=== PATIENT | female | born 1955 | race Caucasian/White ===

== ENCOUNTER → 2016-11-09 | Outpatient (CLI) | payer OTHER ==
[2014-11-06 14:17] VITALS: BP 110/77; PULSE 92
[~2016-11-09] MED LIST: ALEN70TA4 PO; ALPR1TAB3 PO; AMLO-110 PO; ANAS1TAB19 PO; B-COCAP2 PO; BENA10TA10 PO; CALC1TAB27 PO; CHOLTAB3 PO; DESV50TA2 PO; GLC/500 PO; GLIP2.5T11 PO; HYDRTAB8 PO; LTR510 PO; METF1TAB53 PO; PANT40TA PO; SIMV20TA2 PO; TRAZ1TAB16 PO; probiotic
[2016-11-09 12:46] VITALS: BP 119/79; PULSE 88; TEMP 37; O2SAT 96
--- NOTE | 2016-11-09 13:47 | Radiation Oncology Follow-Up ---
Radiation Oncology Follow-Up Date of Visit Nov 09, 2016. Reason For Visit Annual follow-up Radiation Completion Date 04/06/12 Diagnosis (1) Breast cancer Status: Resolved Stage: l Permanent Comment: Left breast, invasive ductal carcinoma, [id number], stage I status post lumpectomy and adjuvant radiation therapy (59.4 Gy, 04/06/2012). Currently on Arimidex. Last Edited By: Familia Roman on Nov 06, 2014 18:19 Interim History She's been doing well over this past year. She has noticed no changes to her breast. She is noted no masses or tenderness and no change in the axilla. She' s had no swelling of her arm. She is up-to-date on mammography. She is on Arimidex. She denies side effects. She continues regular follow-up with Dr. Osorio. She had a mammogram 12/03/2015. There is no evidence of breast malignancy. Routine diagnostic mammogram is recommended in 12 months. BI-RADS Category 2. Allergies Coded Allergies: Dicyclomine (Unverified Allergy, Intermediate, rash, 01/28/12) Bupropion (Unverified Adverse Reaction, Intermediate, mood swings, 01/28/12 ) Uncoded Allergies: hyscyamine (Allergy, Intermediate, rash, 01/28/12) surgical tape (Adverse Reaction, Intermediate, rash, 01/28/12) Home Medications Scheduled Alendronate Sodium (Fosamax), 70 MG PO WK Alprazolam (Xanax), 1-2 TABS PO HS Amlodipine (Norvasc), 5 MG PO DAILY Anastrozole (Arimidex), 1 MG PO DAILY Benazepril (Lotensin), 10 MG PO DAILY Kuudpvo-Yaxqnqqgb-Xijp (Calcium Magnesium & Zinc), 1 TAB PO DAILY Desvenlafaxine Succinate (Pristiq), 100 MG PO DAILY Ergocalciferol (Vitamin D), 2,000 INTER.UNIT PO DAILY Glipizide (Glipizide Er), 0.5 TAB PO BID Hydrocodone/Acetaminophen 7.5MG/500MG (Lortab 7.5MG/500MG), 1-2 TAB PO PRN Metformin Hcl (Glucophage), 500 MG PO BID Pantoprazole (Protonix), 40 MG PO DAILY Simvastatin (Zocor), 20 MG PO QPM Trazodone Hcl (Desyrel), 50 MG PO HS Vitamin B Cmplx/Vitc/Folic Ac (Nephrocaps), 1 CAP PO DAILY Review of Systems Gastrointestinal: Symptoms: Diarrhea GI Comments: Diarrhea is normal for her - relates it to her IBS Oral: Symptoms: No Problems Respiratory: Symptoms: WNL Urinary: Symptoms: WNL Skin: Symptoms: No Problems Breast: Right Upper Arm Measurement: 42.0 Right Mid Arm Measurement: 28.0 Right Wrist Measurement: 16.8 Left Upper Arm Measurement: 39.5 Left Mid Arm Measurement: 26.5 Left Wrist Measurement: 16.8 Arm Dominence: Right Physical Exam Vital Signs Date Time Temp Pulse Resp B/P (MAP) Pulse Ox O2 Delivery O2 Flow Rate FiO2 11/09/16 12:46 37.0 88 16 119/79 96 Pain: Pain Location: None Patient Pain Scale: 0 - 10 Initial Pain Intensity: 0.0 Fatigue: None General Appearance: no apparent distress Eyes: normal inspection, EOMI ENT: normal ENT inspection, hearing grossly normal Neck: no adenopathy, thyroid normal Respiratory/Chest: lungs clear, no respiratory distress, no accessory muscle use Breast: Breast examination reveals well-healed incisions of the left breast. There are no masses or tenderness and no axillary adenopathy. There is no telangiectasia. She has no skin retractions or nipple changes. Using the [place] score cosmesis she has a in excellent outcome. The right breast showed no masses or tenderness and no axillary adenopathy. Cardiovascular: regular rate, rhythm, no gallop, no murmur Extremities: no pedal edema Neurologic/Psychiatric: no motor/sensory deficits, alert, normal mood/affect Skin: warm/dry Additional Studies Mammography as reviewed above. Assessment & Plan Plan: Continue annual mammography. Continue regular follow-up with her primary care physician and breast surgeon. We asked her to return to our office in 1 year. She may call if she has any questions or concerns in the interim. She continues on Arimidex. Total Time In Follow-Up I spent 20 minutes speaking to the patient performing examination. I spent 15 minutes reviewing information and completing this note. Copy To Noah Osorio M.D.; Gisselle Mathews M.D.
== END | disposition home or self-care (01) ==
LOC: C.ONC 12:37
PROVIDERS: ATTEND Physician Assistant Medical
DX: Z08 Encounter for follow-up examination after completed treatment for malignant neoplasm (principal); Z92.3 Personal history of irradiation; Z85.3 Personal history of malignant neoplasm of breast

== ENCOUNTER 2017-06-22 07:46 | Day surgery (SDC) | payer OTHER ==
[2017-06-16 11:38] VITALS: BMI 41.0
--- NOTE | 2017-06-16 12:14 | PAT Medication Instructions ---
Service Date Jun 16, 2017. Current Home Medication List Alendronate Sodium (Fosamax), 70 MG PO WK Alprazolam (Xanax), 1-2 TABS PO HS Amlodipine (Norvasc), 5 MG PO QAM Benazepril (Lotensin), 10 MG PO QAM Vkufyuq-Qteulmdzn-Ycwl (Calcium Magnesium & Zinc), 1 TAB PO QAM Cholecalciferol (Vitamin D3), 1 TAB PO QAM Desvenlafaxine Succinate (Pristiq), 100 MG PO QAM Glimepiride (Amaryl), 1 MG PO Glimepiride (Glimepiride), 1 TAB PO BIDM Hydrocodone/Acetaminophen 7.5MG/325MG ([place] 7.5MG/325MG), 1 TAB PO Q4 PRN for Pain Metformin Hcl (Glucophage), 500 MG PO BIDM Pantoprazole (Protonix), 40 MG PO DAILY PRN for Heartburn Simvastatin (Zocor), 20 MG PO QPM Trazodone Hcl (Desyrel), 50 MG PO HS Vitamin B Cmplx/Vitc/Folic Ac (Nephrocaps), 1 CAP PO QAM Medication Instructions For Your Scheduled Surgery -Continue as directed: Alendronate Sodium (Fosamax), 70 MG PO WK - Hold the following medications the morning of surgery: Benazepril (Lotensin), 10 MG PO QAM Biagvuz-Fmtnifyjh-Gldl (Calcium Magnesium & Zinc), 1 TAB PO QAM Cholecalciferol (Vitamin D3), 1 TAB PO QAM Glimepiride (Glimepiride), 1 TAB PO BIDM Metformin Hcl (Glucophage), 500 MG PO BIDM Vitamin B Cmplx/Vitc/Folic Ac (Nephrocaps), 1 CAP PO QAM - Take the following medications the morning of surgery with a sip of water: Amlodipine (Norvasc), 5 MG PO QAM Desvenlafaxine Succinate (Pristiq), 100 MG PO QAM Hydrocodone/Acetaminophen 7.5MG/325MG ([place] 7.5MG/325MG), 1 TAB PO Q4 PRN for Pain (if needed, can be taken up to four hours before surgery) Pantoprazole (Protonix), 40 MG PO DAILY PRN for Heartburn (if needed) - Take the following medications as scheduled the night before surgery: Alprazolam (Xanax), 1-2 TABS PO HS Glimepiride (Glimepiride), 1 TAB PO BIDM Metformin Hcl (Glucophage), 500 MG PO BIDM Hydrocodone/Acetaminophen 7.5MG/325MG ([place] 7.5MG/325MG), 1 TAB PO Q4 PRN for Pain (if needed) Pantoprazole (Protonix), 40 MG PO DAILY PRN for Heartburn (if needed) Simvastatin (Zocor), 20 MG PO QPM Trazodone Hcl (Desyrel), 50 MG PO HS If you have any questions please call us at [phone] or [phone] or [phone]
[2017-06-16 13:31] LABS: BASO % 0.2 %; BASO ABS # 0.01 K/uL (0-0.2); EOS % 0.8 %; EOS ABS # 0.05 K/uL (0-0.5); HEMATOCRIT 40.9 % (37-47); HEMOGLOBIN 13.1 g/dL (12.0-16.0); IG# 0.02 K/uL (0.00-0.02); LYMPH % 26.2 %; LYMPH ABS # 1.61 K/uL (1.2-3.4); MEAN CELL VOLUME 86.1 fL (80-100); MEAN CORPUSCULAR HEMOGLOBIN 27.6 pg (25-34); MONO % 7.8 %; MONO ABS # 0.48 K/uL (0.11-0.59); NEUT % 64.7 %; NEUT ABS # 3.97 K/uL (1.4-6.5); PLATELET COUNT 186 K/uL (130-400); RED CELL DISTRIBUTION WIDTH CV 14.2 % (11.5-14.5); RED CELL DISTRIBUTION WIDTH SD 44.6 fL (36.4-46.3); WHITE BLOOD COUNT 6.14 K/uL (4.8-10.8)
[2017-06-16 13:38] LABS: INR 0.9 (0.9-1.1); PTT PATIENT 27.4 SECONDS (21.0-31.0)
[2017-06-16 15:13] LABS: CALCIUM 9.2 mg/dl (8.5-10.1); CREATININE 1.04 mg/dl (0.60-1.20); POTASSIUM 4.1 mmol/L (3.5-5.1)
[~2017-06-22] VITALS: Ht 165.1 cm; Wt 112.7 kg
[2017-06-22] VITALS (8 sets, daily range): BP systolic 97–157; BP diastolic 62–88; PULSE 87–99; TEMP 36.5–37; O2SAT 91–99; Ht 165.1 cm; Wt 112.7 kg
[~2017-06-22 07:46] MED LIST changes: +ACETAMINOPHEN 1000 MG/100 ML IV IV ONE; -ANAS1TAB19 PO; +ATROPINE SULFATE 0.1 MG/ML 5ML SYR IV PRN; +B-CO1CAP17 PO; -B-COCAP2 PO; +CEFAZOLIN 2000MG IV PUSH 15 ML IV SCH; +CHOL20005 PO; -CHOLTAB3 PO; +EpHEDrine SULFATE INJ 50 MG/ML AMP IV PRN; +GLIM2TAB2 PO; -GLIP2.5T11 PO; +HYDR-3983 PO; +HYDROmorphone INJ 2 MG/ML SYR/VIAL IV PRN; -HYDRTAB8 PO; +LACTATED RINGER'S 1000ML 1,000 ML IV SCH; -LTR510 PO; -METF1TAB53 PO; +ONDANSETRON INJ 2 MG/ML 2 ML VIAL IV PRN; +PHENYLEPHRINE 100MCG/ML 5ML SYR IV PRN; +TRAZ-119 PO; -TRAZ1TAB16 PO; -probiotic
[2017-06-22] MEDS ORDERED: LIDOCAINE/EPINEPHRINE 1% 20 ML VIAL ONE (09:54)
[2017-06-22] MEDS ORDERED: BUPIVACAINE 0.25% 30 ML VIAL ONE (09:55)
[2017-06-22] MEDS ORDERED: HYDROmorphone INJ 2 MG/ML SYR/VIAL ONE (10:02)
[2017-06-22] MEDS ORDERED: FENTANYL CITRATE INJ 50 MCG/1 ML 2 ML VIAL ONE (10:02)
[2017-06-22] MEDS ORDERED: MIDAZOLAM HCL 1 MG/ML 2ML VIAL ONE (10:02)
--- NOTE | 2017-06-22 10:05 | History & Physical Bridge Note ---
H&P Re-Evaluation Bridge Note: I have examined the patient, reviewed the History & Physical and in the interval since the performance of the History & Physical I have noted the following changes of clinical significance: Consent amended to includ removal of radiation tattoo. Otherwise No changes noted
[2017-06-22] MEDS ORDERED: LARYING-O-JET KIT (LTA) ONE (10:06)
[2017-06-22] MEDS ORDERED: ONDANSETRON INJ 2 MG/ML 2 ML VIAL ONE ×2 (10:53→12:06)
[2017-06-22] MEDS ORDERED: EpHEDrine SULFATE 50MG/5ML SYR ONE (10:53)
[2017-06-22] MEDS ORDERED: PHENYLEPHRINE 100MCG/ML 5ML SYR ONE (10:53)
[2017-06-22] MEDS ORDERED: PROPOFOL IV EMULSION 10 MG/ML 20 ML VIAL IV ONE ×2 (10:53→12:03)
[2017-06-22] MEDS ORDERED: DEXAMETHASONE SOD INJ 4 MG/ML VIAL ONE (10:53)
[2017-06-22] MEDS ORDERED: LIDOCAINE HCL 2% 2 ML VIAL (20MG/ML) ONE (10:53)
--- NOTE | 2017-06-22 12:18 | [facility] Post Operative Brief Note ---
Immediate Operative Summary Operative Date Jun 22, 2017. Pre-Operative Diagnosis -Breast Asymmetry - History of Malignant Neoplasm of Left Breast Post-Operative Diagnosis -Breast Asymmetry - History of Malignant Neoplasm of Left Breast Procedure(s) Performed Unilateral Right Breast Reduction Surgeon Dr. Anastasiia Brown Lumber Handler Surgeon(s) Melanie Baltazar PA-C Estimated Blood Loss 10mL Findings Consistent with Post-Op Diagnosis Specimens Fresh Specimen: A.)Right Breast Tissue (348grams) B.) Incidental Right Breast Lump Drains MELLY x1 Anesthesia Type General Complication(s) none Disposition Disposition: Recovery Room / PACU
[2017-06-22] MEDS ORDERED: PANTOprazole SOD 40 MG TAB PO PRN (12:30)
[2017-06-22] MEDS ORDERED: ACETAMINOPHEN 325 MG TAB PO PRN (12:30)
[2017-06-22] MEDS ORDERED: ONDANSETRON INJ 2 MG/ML 2 ML VIAL IV PRN (12:30)
[2017-06-22] MEDS ORDERED: MoRPHine SULFATE 2 MG/ML CARP IV PRN (12:30)
[2017-06-22] MEDS ORDERED: MoRPHine SULFATE 4 MG/ML 1 ML CARP\\VIAL IV PRN ×2 (12:30)
[2017-06-22] MEDS ORDERED: PROMETHAZINE HCL INJ 12.5 MG in SODIUM CHLORIDE 0.9% 50ML 50 ML IV PRN (12:30)
--- NOTE | 2017-06-22 13:33 | Anesthesiology Progress Note ---
Anesthesia Post Op Note Date & Time Jun 22, 2017 at 13:32 Vital Signs Pain Intensity: 0 Vital Signs Past 12 Hours Date Time Temp Pulse Resp B/P (MAP) Pulse Ox O2 Delivery O2 Flow Rate FiO2 06/22/17 13:15 103 16 134/67 95 Nasal Cannula 2 06/22/17 13:05 95 15 153/59 99 Oxymask 10 06/22/17 12:55 99 15 117/68 99 Oxymask 10 06/22/17 12:49 36.0 106 12 152/80 100 Oxymask 10 06/22/17 08:27 36.7 90 18 157/88 (111) 95 Room Air Notes Mental Status: alert / awake / arousable, participated in evaluation Pt Amnestic to Procedure: Yes Nausea / Vomiting: adequately controlled Pain: adequately controlled Airway Patency, RR, SpO2: stable & adequate BP & HR: stable & adequate Hydration State: stable & adequate Anesthetic Complications: no major complications apparent
[2017-06-22] MEDS ORDERED: D5W AND 1/2NSS + 20MEQ KCL 1,000 ML IV SCH (14:30)
[2017-06-22] MEDS: CEFAZOLIN IV 3,000 MG in SYRINGE 0 ML IV SCH ×2 (15:47→23:46)
[2017-06-22] MEDS: HYDROCODONE/ACETAMINOPHEN 7.5/325MG TAB PO PRN ×2 (15:51→23:48)
[2017-06-22] MEDS ORDERED: IV FLUIDS COMPLETED PRN (16:00)
--- NOTE | 2017-06-22 16:11 | OPERATIVE REPORT ---
DATE OF OPERATION: 06/22/2017 PREOPERATIVE DIAGNOSIS: Acquired breast asymmetry as a result of lumpectomy and radiation, desire for right breast reduction. POSTOPERATIVE DIAGNOSIS: Same. PROCEDURE: Right breast reduction for symmetry and excision of radiation tattoo, central chest. SURGEON: Dr. Anastasiia Brown. HEBREW TEACHER: Melanie Baltazar PA-C. ANESTHESIA: General. COMPLICATIONS: None. INDICATION FOR THE PROCEDURE: The patient is a 61-year-old female who presented to my office at the request of her breast surgeon after having had a lumpectomy and radiation on the left side for breast cancer about 5 years ago. She has been bothered by the persistent asymmetry and desire to discuss right breast reduction. After discussion, she elected to proceed. BRIEF DESCRIPTION OF THE PROCEDURE: The risks, benefits and alternatives of the procedure were explained to the patient who agreed and signed consent. She was identified and marked in the preoperative holding area. She was brought to the operating room where she was positioned supine and placed under anesthesia without incident. Surgical site was prepped and draped sterilely. A time-out procedure was performed. I began with excision of her small radiation tattoo, which measured about 4 mm. 1% lidocaine with epinephrine was used to anesthetize the site. A small elliptical incision was made. The tattoo was excised using a 15 blade scalpel. Hemostasis was achieved with electrocautery. The wound was reapproximated using 3-0 PDS interrupted dermal sutures and a 4-0 Prolene interrupted skin sutures. Total wound closure length 2 cm. Attention was then turned to a right breast reduction. I discussed with the patient preoperatively that I would attempt to match the nipple and areolar position as much as possible. Therefore, I marked the areola to be about 50 mm in diameter. 1% lidocaine with epinephrine was used to anesthetize the planned incisions. An 8 cm pedicle was marked. A 50 mm circular incision was made around the nipple-areolar complex. Previously marked 8 cm pedicle was incised using a 15 blade scalpel and epithelized. I began with the medial dissection of the pedicle using electrocautery. Cautery was used to incise through dermis and breast parenchyma down to the chest wall, taking care not to undermine the pedicle during dissection. I did bevel away from the pedicle medially in order to provide some additional fullness. A similar procedure was undertaken on the lateral aspect of the pedicle again taking care not to undermine. Lastly pedicle was dissected out superiorly using electrocautery and this was carried down to the chest wall as well. I then began with excision of the medial breast tissue followed by lateral aspect of the breast tissue and surrounding keyhole incision. A 15 blade scalpel was used to make the inframammary fold incision and electrocautery was used to deepen the incision through dermis and breast parenchyma. Dissection was then carried superiorly to the level of the superior incision. Superior incision was then incised using a 15 blade scalpel and again dissected using electrocautery. This was undertaken laterally and then around the keyhole portion of the incision. Care was taken to Levophed on the lateral pectoralis fascia in order to protect the T4 intercostal nerve. Hemostasis was achieved with electrocautery. Specimen was passed off for weighing and weighed 348 grams. I did not perform any additional resection as I felt there was reasonable symmetry with regards to volume and nipple position. Wound was irrigated with saline. Hemostasis was achieved with electrocautery. 0.25% Marcaine plain was used to anesthetize the incisions as well as pectoralis fascia. A 15 [place] Alex drain was brought out through a separate stab incision. The nipple-areolar complex was brought into the keyhole using 2-0 Vicryl deep dermal suture. Wound was closed first in a lateral to mid breast direction and then medial to mid breast direction using 2-0 Vicryl deep dermals. Vertical limb was approximated using 2-0 Vicryl deep dermal sutures. The nipple-areolar complex was inset using 2-0 Vicryl deep dermal sutures. Next, the superficial dermal layer was closed using 2-0 PDO running Quill suture along the inframammary fold and 3-0 PDS interrupted dermal sutures along the vertical limb and nipple-areolar complex. Lastly, a 3-0 Monocryl running subcuticular suture was placed. Dermabond Prineo was applied along the inframammary fold and vertical limb incisions and Dermabond was placed around the nipple-areolar complex. Dry dressings and a surgical bra were placed. The patient was awakened and transferred to recovery in satisfactory condition. Melanie Baltazar PA-C was present and scrubbed throughout the entire procedure and was instrumental in providing retraction during dissection of the pedicle and assisting in wound closure. I attest to the content of the Intraoperative Record and any orders documented therein. Any exception s are noted below.
[2017-06-22] MEDS: GLIMEPIRIDE 2 MG TAB PO SCH (17:45)
[2017-06-22] MEDS ORDERED: ALPRAZOLAM 0.5 MG TAB PO SCH (21:00)
[2017-06-22] MEDS ORDERED: SIMVASTATIN 20 MG TAB PO SCH (21:00)
[2017-06-22] MEDS ORDERED: TRAZODONE HCL 50 MG TAB PO SCH (21:00)
[2017-06-23 03:00] VITALS: BP 128/72; PULSE 90; TEMP 37; O2SAT 94
[2017-06-23] MEDS: HYDROCODONE/ACETAMINOPHEN 7.5/325MG TAB PO PRN (07:29)
--- NOTE | 2017-06-23 08:01 | Surgery Progress Note ---
Surgery Progress Note Date of Service Jun 23, 2017. Subjective Post OP Day: 1 + feeling well, + ambulating, No complaints Objective Vital Signs: Date Time Temp Pulse Resp B/P (MAP) Pulse Ox O2 Delivery O2 Flow Rate FiO2 06/23/17 03:00 37.0 90 17 128/72 (90) 94 Room Air 06/22/17 23:30 Room Air 06/22/17 23:07 37.0 93 17 97/65 (76) 93 Room Air 06/22/17 16:51 36.9 87 18 117/79 (92) 93 06/22/17 15:56 36.6 98 18 124/75 (91) 96 Room Air 06/22/17 15:45 96 Room Air 06/22/17 15:19 36.6 91 18 119/74 (89) 91 Room Air 06/22/17 14:30 36.5 98 17 102/62 (75) 91 Room Air 06/22/17 14:00 95 Nasal Cannula 2.0 06/22/17 14:00 36.7 99 16 123/73 (90) 99 Nasal Cannula 2.0 06/22/17 13:45 101 15 118/70 95 Nasal Cannula 2 06/22/17 13:35 36.7 99 16 120/62 95 Nasal Cannula 2 06/22/17 13:25 99 18 125/64 93 Nasal Cannula 2 06/22/17 13:15 103 16 134/67 95 Nasal Cannula 2 06/22/17 13:05 95 15 153/59 99 Oxymask 10 06/22/17 12:55 99 15 117/68 99 Oxymask 10 06/22/17 12:49 36.0 106 12 152/80 100 Oxymask 10 06/22/17 08:27 36.7 90 18 157/88 (111) 95 Room Air Physical Exam: Alex drainage (serous and bloody, 20cc) General Appearance: WD/WN, no apparent distress Incision(s): clean, dry, intact, no erythema, findings (nipples pink, with sensation bilat) Laboratory Results: Results Past 24 Hours Test 06/22/17 08:22 06/22/17 13:06 06/22/17 16:50 Range/Units Bedside Glucose 130 171 151 70-90 mg/dl Assessment & Plan s/p right breast reduction 1. doing well. drain removed. d/c home today, f/u in office tomorrow
--- NOTE | 2017-06-23 08:03 | Discharge Instructions ---
Discharge Instructions Date of Service Jun 23, 2017. Admission Reason for Admission: Breast Asymmetry, Personal Hx Of Malignant Neoplas Discharge Discharge Diagnosis / Problem: breast asymmetry, history of breast cancer Discharge Goals Goal(s): Decrease discomfort, Improve function Activity Recommendations Activity Limitations: per Instructions/Follow-up section ACTIVITY RECOMMENDATIONS: __Normal activities _x_No bending, lifting or straining __No driving __Driving allowed when you are off pain medications _x_Walking permitted __You should have help at home for ___ days DRESSINGS: __No dressings required _x_Keep dressings dry/in place until first office visit __Remove dressings ___ and leave dressings off __Apply ice ___ days __Remove dressings and reapply garment __Apply antibiotic ointment (Bacitracin, Neosporin, etc) to wounds 3-4 times/ day for 10 days BATHING: _x_Keep dressings dry _x_Sponge bathing permitted away from incisions __Showering permitted _x_No swimming, hot tubs or soaking in a tub MEDICATIONS: Resume previous medications unless instructed otherwise by your surgeon. _x_Do not use aspirin, Motrin, Advil or Ibuprofen as these may promote bleeding. Please use Tylenol. __Prescription(s) provided: none OTHER INSTRUCTIONS: __Record drain output 2-3 times per day SPECIAL CARE INSTRUCTIONS: * It is normal to have a mild fever after surgery. If your temperature is higher than 101.5 degrees F, please call the office at [phone]. * Constipation is a typical side effect of pain medication. An over-the- counter stool softener will help relieve this. * Leaking around surgical drains may occur and should not cause concern. Sometimes these drains become clogged. If this happens, remove the bulb and milk the clot out of the tube, then replace the bulb. * Drainage from wounds after liposuction is normal and should be expected. Garments will become soiled. You should protect furniture and bedding. This drainage should mostly subside within 2-3 days. Leave garments in place unless instructed to remove them. * If you have unusual drainage from a wound or are concerned you have an infection or have any questions or concerns, please call the office at [phone]. FOLLOW UP VISIT: If not already scheduled, please call the office, , when you return home after surgery to schedule an appointment to be seen in __1_ days. . Current Hospital Diet Patient's current hospital diet: Diabetes Type 2 Diet Discharge Diet Recommended Diet: Regular Diet Procedures Procedures Performed: Unilateral Right Breast Reduction Pending Studies Studies pending at discharge: yes List of pending studies: pathology Medical Emergencies . Who to Call and When: Medical Emergencies: If at any time you feel your situation is an emergency, please call 911 immediately. . Non-Emergent Contact Non-Emergency issues call your: Primary Care Provider, Surgeon . "Provider Documentation" section prepared by Melanie Baltazar. . [place] Drug Monitoring Program Search Results: patient reviewed within database
[2017-06-23 08:05] VITALS: BP 119/74; PULSE 99; TEMP 36.8; O2SAT 94
[2017-06-23] MEDS: GLIMEPIRIDE 2 MG TAB PO SCH (08:41)
[2017-06-23 08:45] VITALS: BP 119/74; PULSE 99; TEMP 36.8; O2SAT 94
[2017-06-23] MEDS ORDERED: NEPHROCAPS PO SCH (09:00)
[2017-06-23] MEDS ORDERED: AMLODIPINE BESYLATE 5 MG TAB PO SCH (09:00)
[2017-06-23] MEDS ORDERED: ENOXAPARIN 40 MG/0.4 ML SYR SQ SCH (09:00)
[2017-06-23] MEDS ORDERED: ENALAPRIL MALEATE 10 MG TAB PO SCH (09:00)
[2017-06-23] MEDS ORDERED: MULTIVITAMIN TAB PO SCH (09:00)
--- NOTE | 2017-06-24 08:11 | Discharge Summary ---
Discharge Summary Date of Service Jun 24, 2017. Admission Date/Reason Jun 22, 2017 at 08:19 Breast Asymmetry, Personal Hx Of Malignant Neoplas. Discharge Date/Disposition Jun 23, 2017 Home Diagnosis Principal Diagnosis: breast asymmetry, history of breast cancer Procedure(s) Performed right breast reduction Medication Reconciliation Continued Medications: Alendronate Sodium (Fosamax) 70 Mg Tab 70 MG PO WK, TAB takes on saturdays Alprazolam (Xanax) 1 Mg Tab 1-2 TABS PO HS, TAB Amlodipine (Norvasc) 5 Mg Tab 5 MG PO QAM, TAB Benazepril (Lotensin) 10 Mg Tab 10 MG PO QAM, TAB Ddohoey-Avmmqxcqf-Ukog (Calcium Magnesium & Zinc) 1 Tab Tab 1 TAB PO QAM Cholecalciferol (Vitamin D3) 2,000 Unit Tab 1 TAB PO QAM Desvenlafaxine Succinate (Pristiq) 50 Mg Tab 100 MG PO QAM, TAB Glimepiride (Glimepiride) 2 Mg Tab 1 TAB PO BIDM Hydrocodone/Acetaminophen 7.5MG/325MG ([place] 7.5MG/325MG) Tab 1 TAB PO Q4 PRN for Pain, TAB PRN PAIN Metformin Hcl (Glucophage) 500 Mg Tab 500 MG PO BIDM, TAB Pantoprazole (Protonix) 40 Mg Tab 40 MG PO DAILY PRN for Heartburn, #30 TAB Simvastatin (Zocor) 20 Mg Tab 20 MG PO QPM, TAB Trazodone Hcl (Desyrel) 50 Mg Tab 50 MG PO HS, TAB Vitamin B Cmplx/Vitc/Folic Ac (Nephrocaps) Cap 1 CAP PO QAM for 30 Days, #30 CAP 11 Refills Admission Physical Exam As per Admitting History & Physical. Hospital Course Patient presented to the hospital with a history of breast asymmetry as a result of surgery to her left breast for breast cancer. She was taken to the OR and underwent a right breast reduction. A myra drain was placed intraoperatively. There were no complications. She was taken to recovery and transferred to med/surg for observation. On POD#1 her drain had 20cc of serosanguineous output and was removed. Her nipple was pink, perfusing and had sensation. VSS. The patient was tolerating a regular diet and ambulating. She was discharged home with instructions to follow-up in the office the following day. Discharge Instructions Please refer to the electronic Patient Visit Report (Discharge Instructions) for additional information.
[2017-06-25] MEDS ORDERED: ALENDRONATE SODIUM 70 MG TAB PO SCH (08:00)
== END 2017-06-23 09:30 | disposition home or self-care (01) ==
LOC: C.ACU 07:46 → C.MSW 08:19 → ENRESERV 13:21
PROVIDERS: ADMIT Plastic Surgery; ATTEND Plastic Surgery
DX: N64.89 Other specified disorders of breast (principal); M19.90 Unspecified osteoarthritis, unspecified site; F41.8 Other specified anxiety disorders; Z85.3 Personal history of malignant neoplasm of breast; I10 Essential (primary) hypertension; K58.9 Irritable bowel syndrome, unspecified; Z90.710 Acquired absence of both cervix and uterus; Z96.659 Presence of unspecified artificial knee joint; Z87.81 Personal history of (healed) traumatic fracture; Z82.49 Family history of ischemic heart disease and other diseases of the circulatory system; Z88.8 Allergy status to other drugs, medicaments and biological substances; Z91.048 Other nonmedicinal substance allergy status; E78.5 Hyperlipidemia, unspecified; K21.9 Gastro-esophageal reflux disease without esophagitis; E11.9 Type 2 diabetes mellitus without complications; E66.01 Morbid (severe) obesity due to excess calories

== ENCOUNTER → 2017-11-08 | Outpatient (CLI) | payer OTHER ==
[~2017-11-08] MED LIST changes: -ACETAMINOPHEN 1000 MG/100 ML IV IV ONE; -AMLO-110 PO; +AMLO5TAB3 PO; -ATROPINE SULFATE 0.1 MG/ML 5ML SYR IV PRN; -B-CO1CAP17 PO; +B-COCAP2 PO; -CEFAZOLIN 2000MG IV PUSH 15 ML IV SCH; -EpHEDrine SULFATE INJ 50 MG/ML AMP IV PRN; -HYDROmorphone INJ 2 MG/ML SYR/VIAL IV PRN; -LACTATED RINGER'S 1000ML 1,000 ML IV SCH; -ONDANSETRON INJ 2 MG/ML 2 ML VIAL IV PRN; -PHENYLEPHRINE 100MCG/ML 5ML SYR IV PRN; -TRAZ-119 PO; +TRAZ1TAB96 PO
[2017-11-08 13:16] VITALS: BP 123/85; PULSE 79; TEMP 37; O2SAT 95
--- NOTE | 2017-11-08 14:40 | Radiation Oncology Follow-Up ---
Radiation Oncology Follow-Up Date of Visit Nov 08, 2017. Reason For Visit Annual follow up Radiation Completion Date 04/06/12 Diagnosis (1) Breast cancer Status: Resolved Stage: l Permanent Comment: Left breast, invasive ductal carcinoma, [id number], stage I status post lumpectomy and adjuvant radiation therapy (59.4 Gy, 04/06/2012). Completed 5 years of Armidex. Last Edited By: Albina Booker on Nov 08, 2017 14:37 Interim History She has been doing well over the past year. She denies any changes to the left breast. She is noted no masses or tenderness and no change of the axilla. She has had no swelling of her arm. She is up-to-date on mammography. She saw her breast surgeon and was discharged. He did state that because of the asymmetry of the breasts she would like an opinion of a plastic surgeon. She was seen by Dr. Anastasiia Brown and underwent breast reduction on the right side. She is very pleased with the outcome. She has now completed the antiestrogen therapy that was prescribed by the breast surgeon. Allergies Coded Allergies: Dicyclomine (Unverified Allergy, Intermediate, rash, 06/22/17) Bupropion (Unverified Adverse Reaction, Intermediate, mood swings, 06/22/17 ) Uncoded Allergies: hyscyamine (Allergy, Intermediate, rash, 01/28/12) surgical tape (Adverse Reaction, Intermediate, rash, 01/28/12) Home Medications Scheduled Alendronate Sodium (Fosamax), 70 MG PO WK Alprazolam (Xanax), 1-2 TABS PO HS Amlodipine (Norvasc), 5 MG PO QAM Benazepril (Lotensin), 10 MG PO QAM Faizayh-Kiibpuzsi-Tqgq (Calcium Magnesium & Zinc), 1 TAB PO QAM Cholecalciferol (Vitamin D3), 1 TAB PO QAM Desvenlafaxine Succinate (Pristiq), 100 MG PO QAM Glimepiride (Glimepiride), 1 TAB PO BIDM Metformin Hcl (Glucophage), 500 MG PO BIDM Simvastatin (Zocor), 20 MG PO QPM Trazodone Hcl (Desyrel), 50 MG PO HS Vitamin B Cmplx/Vitc/Folic Ac (Nephrocaps), 1 CAP PO QAM Scheduled PRN Hydrocodone/Acetaminophen 7.5MG/325MG ([place] 7.5MG/325MG), 1 TAB PO Q4 PRN for Pain Pantoprazole (Protonix), 40 MG PO DAILY PRN for Heartburn Review of Systems Gastrointestinal: Symptoms: WNL GI Comments: Diarrhea is normal for her - relates it to her IBS Oral: Symptoms: No Problems Respiratory: Symptoms: WNL Urinary: Symptoms: WNL Skin: Symptoms: No Problems Breast: Right Upper Arm Measurement: 44.5 Right Mid Arm Measurement: 28.0 Right Wrist Measurement: 17.3 Left Upper Arm Measurement: 44.0 Left Mid Arm Measurement: 27.5 Left Wrist Measurement: 17.3 Arm Dominence: Right Physical Exam Vital Signs Date Time Temp Pulse Resp B/P (MAP) Pulse Ox O2 Delivery O2 Flow Rate FiO2 11/08/17 13:16 37.0 79 20 123/85 95 ECOG Performance Status: 0 Fatigue: None General Appearance: no apparent distress Eyes: normal inspection, EOMI ENT: normal ENT inspection, hearing grossly normal Neck: supple, no adenopathy, thyroid normal Respiratory/Chest: lungs clear, no respiratory distress, no accessory muscle use Breast: Breast examination reveals bilateral well-healed incisions. There are no masses or tenderness and no axillary adenopathy. She has no skin retractions or nipple changes. Using the [place] score of cosmesis she has a good outcome. Cardiovascular: regular rate, rhythm, no gallop, no murmur Abdomen: non tender, soft, no organomegaly Extremities: no pedal edema Neurologic/Psychiatric: no motor/sensory deficits, alert, normal mood/affect Skin: warm/dry Pain Management Patient Reports Pain: No Pain Location: None Patient Preferred Pain Scale: 0 - 10 Initial Pain Intensity: 0.0 Pain Management Plan She denies pain therefore requires no pain management. Laboratory Laboratory Results: not applicable Pathology Pathology Results: not applicable Imaging Imaging Studies: were reviewed, and pertinent findings noted below Imaging Comments She had a mammogram December 14, 2016. This showed no evidence of malignancy. Recommendation was for 12-month follow-up. BI-RADS Category 2. Assessment & Plan Plan: Continue with scheduled mammography. She will have a mammogram next month. She will continue follow-up with her primary care provider and printing table hand. A follow-up appointment with our office was not given. She is going to continue her breast examinations through the primary care provider and her printing table hand. She may call if she has any questions or concerns we would be happy to see her. Total Time In Follow-Up I spent 20 minutes speaking to the patient in performing examination. I spent 15 minutes reviewing information and completing this note. AK Copy To Gisselle Mathews M.D. Problem Qualifiers (1) Breast cancer: Breast location: upper inner quadrant of breast Estrogen receptor status: positive Patient sex: female Laterality: left Qualified Codes: C50.212 - Malignant neoplasm of upper-inner quadrant of left female breast; Z17.0 - Estrogen receptor positive status [ER+]
== END | disposition home or self-care (01) ==
LOC: C.ONC 12:55
PROVIDERS: ATTEND Physician Assistant Medical
DX: Z08 Encounter for follow-up examination after completed treatment for malignant neoplasm (principal); Z92.3 Personal history of irradiation; Z85.3 Personal history of malignant neoplasm of breast

== ENCOUNTER 2022-08-10 10:21 | Inpatient (IN) ==
--- NOTE | 2022-08-10 11:09 | Emergency Department Note ---
History of Present Illness General Chief complaint: Fall Time Seen by Provider: 08/10/22 11:01 History of Present Illness Provider complaint: Fall Onset (ago): day(s) 1 Location: lower extremity and right Maximum Pain Intensity: 8 67-year-old female presents emergency department for fall. Patient states that she had a total right hip replacement done by Dr. Krishnamurthy in [place] yesterday. She states she got home around 2 PM and then at 11 PM felt a pop in her hip replacement. Patient states she had pain but was able to get back to the bed. She states she woke up this morning at 8 AM and felt a second pop in the affected hip and then fell to the floor. Patient is reporting pain in her right hip. Home Medications Medication Instructions Recorded Confirmed Type aspirin 81 mg tablet 81 mg PO QAM 02/01/20 08/10/22 History ndadpvf-kjekihkic-znyf 333 mg-133 2 tab PO DAILY 02/01/20 08/10/22 History mg-5 mg tablet fluoxetine 40 mg capsule (Prozac) 60 mg PO QAM 02/01/20 08/10/22 History hydrocodone 7.5 mg-acetaminophen 1 tab PO BID PRN Pain 02/01/20 08/10/22 History 325 mg tablet ([place]) lactobacillus combination no.4 3 3,000 mmu cells PO DAILY 02/01/20 08/10/22 History billion cell capsule (Probiotic) meclizine 25 mg capsule 25 mg PO TID PRN Dizziness 02/01/20 08/10/22 History ondansetron HCl 4 mg tablet 4 mg PO Q6H PRN Nausea 02/01/20 08/10/22 History (Zofran) pantoprazole 40 mg tablet,delayed 40 mg PO DAILY PRN Acid Reflux 02/01/20 08/10/22 History release (Protonix) pioglitazone 30 mg tablet (Actos) 30 mg PO QAM 02/01/20 08/10/22 History simvastatin 20 mg tablet (Zocor) 20 mg PO HS 02/01/20 08/10/22 History amlodipine 5 mg tablet 5 mg PO DAILY 08/10/22 08/10/22 History buspirone 7.5 mg tablet 7.5 mg PO TID 08/10/22 08/10/22 History dicyclomine 10 mg capsule 10 mg PO QID PRN Abdominal Pain 08/10/22 08/10/22 History lisinopril 20 mg tablet 20 mg PO DAILY 08/10/22 08/10/22 History Allergies Allergy/AdvReac Type Severity Reaction Status Date / Time dicyclomine Allergy Unknown rash Verified 02/18/20 06:27 bupropion AdvReac Unknown mood swings Verified 02/18/20 06:27 hyscyamine Allergy Unknown rash Uncoded 02/18/20 06:27 surgical tape AdvReac Unknown BROWN Uncoded 02/18/20 06:27 SURGICAL TAPE - rash Past Med/Surg History Medical History Acid reflux Age related osteoporosis OSTEOPEROSIS Anxiety and depression Diabetes History of breast cancer LEFT, HX RADIATION History of fall JAN 03 2020TRIPPED OVER SOMETHING AT [employer] -INJURED SELF - NOT DX WITH 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 HTN (hypertension) Hyperlipidemia IBS (irritable bowel syndrome) Surgical History History of History of colonoscopy History of hysterectomy History of partial mastectomy of left breast History of reduction surgery of right breast History of surgery LEFT LEG X2 History of total left knee replacement S/P hip replacement Family History Mother Family history of diabetes mellitus Other Family history of diabetes mellitus in father Patient's father is Social History Smoking Status: Never smoker Do You Dip or Chew Tobacco: No; Hx Alcohol Use: No Preferred Language: Yoruba Communication Ability: Effective 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 Beliefs That Will Affect Care: None Current Living Situation: Family Current Living Situation Comment: SON AND DEANNA LIVE WITH PT Feels Safe at Home: Yes Physical Exam Vital Signs Vital Signs - 24 hr 08/10/22 10:11 08/10/22 11:23 08/10/22 14:23 Temperature 36.5 C Temperature Source Temporal Artery Scan Pulse Rate 78 Pulse Rate [Apical] 79 Respiratory Rate 18 18 Respiratory Effort / Characteristics Non-Labored Spontaneous Respiratory Depth Normal Respiratory Pattern Regular Blood Pressure 138/78 Blood Pressure [Left Arm] 98/54 L Blood Pressure Mean 98 Blood Pressure Mean [Left Arm] 68 Blood Pressure Position Sitting Pulse Oximetry 97 97 94 Oxygen Delivery Method Room Air Room Air Sepsis Recent Fever Within 48 Hours No Sepsis New/Unexplained Change in Mental Status N/A Sepsis Action Taken by Nursing No Action Required Physical Exam HENT: Exam performed. -Head: Normocephalic and atraumatic. -Right Ear: External ear normal. No mastoid erythema -Left Ear: External ear normal. No mastoid erythema EYES: Conjunctivae and EOM are normal. Right eye exhibits no discharge. Left eye exhibits no discharge. No scleral icterus. NECK: Normal range of motion. Neck supple. No JVD present. No spinous process tenderness present. No tracheal deviation and normal range of motion present. CV: Normal rate, regular rhythm, normal heart sounds and intact distal pulses. There is no peripheral edema. Palpable radial pulses bue. PULM/CHEST: Effort normal and breath sounds normal. No respiratory distress. No stridor. She has no wheezes. She has no rales. ABD: The abdomen is soft. There is no tenderness. There is no rebound, no guarding. MUSC/SKEL: Right lower extremity: Surgical incision is clean and dry. Right lower extremity is shortened and externally rotated. Pain on palpation of the right hip. Bruising over the right internal thigh. Left lower extremity: Within normal limits NEURO:GCS eye subscore is 4. GCS verbal subscore is 5. GCS motor subscore is 6. PSYCH: She has a normal mood and affect. Behavior is normal. Judgment and thought content normal. Course Course 1101: The patient was evaluated in room A11. A complete history and physical exam was performed Cardiac monitoring: An order was placed for continuous cardiac monitoring. The monitor shows a rate of 80 with sinus rhythm interpreted by me 1215: X-rays reviewed by me do show periprosthetic fracture. Confirmed by radiology. Discussed with the patient's operating surgeon Dr. Krishnamurthy who states he is not in [place] until Tuesday and is asking if the patient could be transferred to [facility] as he is operating there tomorrow. 1230: Dr. Krishnamurthy called back and states he should be able to rearrange his schedule to accommodate the patient and states that the patient can be admitted to this facility. Patient will be admitted to the medicine team. Administered Medications Morphine Sulfate (Morphine Sulfate 4 Mg/Ml 1 Ml Carp\Vial) 4 mg IV Q1H PRN PRN Reason: Severe Pain (Rating 7,8,9,10) Stop: 08/24/22 12:03 Last Admin: 08/10/22 14:22 Dose: 4 mg Documented By: BRYON Medical Decision Making Laboratory Data Attestation: I reviewed the patient's lab results. 08/10/22 12:10 08/10/22 12:10 Lab Results 08/10/22 08/10/22 08/10/22 Range/Units 12:10 12:10 12:10 WBC 8.90 (4.8-10.8) K/ul RBC 3.38 L (4.20-5.40) M/uL Hgb 10.0 L (12.0-16.0) g/dl Hct 31.2 L (37.0-47.0) % MCV 92.3 (80.0-100.0) fL MCH 29.6 (25.0-34.0) pg MCHC 32.1 (32.0-36.0) g/dL RDW Std Deviation 46.7 H (36.4-46.3) fL RDW Coeff of Sunny 13.8 (11.5-14.5) % Plt Count 179 (130-400) K/uL MPV 11.5 (9.4-12.4) fL Immature Gran % (Auto) 0.3 % Neut % (Auto) 85.1 % Lymph % (Auto) 6.2 % [place] % (Auto) 8.3 % Eos % (Auto) 0.0 % Baso % (Auto) 0.1 % Neut # (Auto) 7.57 H (1.40-6.50) K/uL Lymph # (Auto) 0.55 L (1.2-3.4) K/uL [place] # (Auto) 0.74 H (0.11-0.59) K/uL Eos # (Auto) 0.00 (0-0.50) K/uL Baso # (Auto) 0.01 (0-0.2) K/uL Immature Gran # (Auto) 0.03 (0.01-0.20) K/uL PT 11.3 (9.0-12.0) Seconds INR 1.0 (0.9-1.1) APTT 31.3 H (21.0-31.0) Seconds PTT Ratio 1.1 Sodium 138 (136-145) mmol/L Potassium 3.8 (3.5-5.1) mmol/L Chloride 108 H (98-107) mmol/L Carbon Dioxide 26 (21-32) mmol/L Anion Gap 4 (3-11) BUN 16 (6-23) mg/dl Creatinine 1.01 (0.6-1.2) mg/dl Est Cr Clr Drug Dosing 68.0 ml/min Est GFR ( Amer) 66.7 ml/min Est GFR (Non-Af Amer) 57.6 ml/min BUN/Creatinine Ratio 15.8 (10-20) Glucose 122 H (70-99(Fasting)) mg/dl Calcium 8.6 (8.6-10.3) mg/dl Urine Color Urine Appearance (Clear) Urine pH (4.5-7.5) Ur Specific [place] (1.000-1.030) Urine Protein (Negative) Urine Glucose (UA) (Negative) Urine Ketones (Negative) Urine Blood (Negative) Urine Nitrite (Negative) Urine Bilirubin (Negative) Urine Urobilinogen (Negative) Ur Leukocyte Esterase (Negative) SARS-CoV-2, RNA, NAAT (NEGATIVE) 08/10/22 08/10/22 Range/Units 13:33 13:33 WBC (4.8-10.8) K/ul RBC (4.20-5.40) M/uL Hgb (12.0-16.0) g/dl Hct (37.0-47.0) % MCV (80.0-100.0) fL MCH (25.0-34.0) pg MCHC (32.0-36.0) g/dL RDW Std Deviation (36.4-46.3) fL RDW Coeff of Sunny (11.5-14.5) % Plt Count (130-400) K/uL MPV (9.4-12.4) fL Immature Gran % (Auto) % Neut % (Auto) % Lymph % (Auto) % [place] % (Auto) % Eos % (Auto) % Baso % (Auto) % Neut # (Auto) (1.40-6.50) K/uL Lymph # (Auto) (1.2-3.4) K/uL [place] # (Auto) (0.11-0.59) K/uL Eos # (Auto) (0-0.50) K/uL Baso # (Auto) (0-0.2) K/uL Immature Gran # (Auto) (0.01-0.20) K/uL PT (9.0-12.0) Seconds INR (0.9-1.1) APTT (21.0-31.0) Seconds PTT Ratio Sodium (136-145) mmol/L Potassium (3.5-5.1) mmol/L Chloride (98-107) mmol/L Carbon Dioxide (21-32) mmol/L Anion Gap (3-11) BUN (6-23) mg/dl Creatinine (0.6-1.2) mg/dl Est Cr Clr Drug Dosing ml/min Est GFR ( Amer) ml/min Est GFR (Non-Af Amer) ml/min BUN/Creatinine Ratio (10-20) Glucose (70-99(Fasting)) mg/dl Calcium (8.6-10.3) mg/dl Urine Color Yellow Urine Appearance Clear (Clear) Urine pH 6.0 (4.5-7.5) Ur Specific [place] 1.020 (1.000-1.030) Urine Protein Negative (Negative) Urine Glucose (UA) Negative (Negative) Urine Ketones Trace H (Negative) Urine Blood Negative (Negative) Urine Nitrite Negative (Negative) Urine Bilirubin Negative (Negative) Urine Urobilinogen Negative (Negative) Ur Leukocyte Esterase Negative (Negative) SARS-CoV-2, RNA, NAAT NEGATIVE (NEGATIVE) Imaging Data Attestation: I personally reviewed and interpreted this imaging study as follows: My Impression: Femur x-ray: Periprosthetic fracture Radiologist's Impression: Cervical Spine CT 08/10/22 11:13 CT SCAN OF THE CERVICAL SPINE CLINICAL HISTORY: Trauma. Fall. COMPARISON STUDY: No priors. TECHNIQUE: CT scan of the cervical spine is performed from the skull base to the upper thoracic spine. Images are reviewed in the axial, sagittal, and coronal planes. IV contrast was not administered for this examination. A dose lowering technique was utilized adhering to the principles of ALARA. FINDINGS: Skeletal structures: The skeletal structures are osteopenic. There is no evidence of fracture or subluxation involving the cervical spine. Vertebral body height and alignment are maintained. There is straightening of the cervical lordosis. The odontoid process and lateral masses are intact. The atlantoaxial articulation is preserved noting mild productive degenerative change. A bone island is noted in the body of T1. The spinous processes appear intact. Intervertebral discs: There is mild disc space narrowing, greatest at C6-C7 and C7-T1. Central canal: Grossly patent. Soft tissues: The prevertebral and paraspinous soft tissues are within normal limits. There is a 4 cm nodule arising from the right lobe of the thyroid gland. Calvarium: The visualized calvarium at the skull base appears intact. Brain parenchyma: Partially visualized brain parenchyma at the skull base is within normal limits. Sinuses and mastoids: The visualized paranasal sinuses are clear. The mastoid air cells are well pneumatized. Lung apices: Clear as visualized. IMPRESSION: 1. There is no evidence of fracture or subluxation involving the cervical spine. 2. Osteopenia and mild spondylotic changes above. 3. There is a 4 cm nodule/lesion arising from the right lobe of the thyroid gland. If not already performed, an ultrasound-guided fine-needle aspiration is recommended. ACT 112: Positive. There are findings on this exam that require communication between the performing entity and the patient following Patient Test Result Information Act ([place] Act 112) guidelines. Electronically signed by: Rupert Stringer M.D. 08/10/2022 11:43 AM Chest X-Ray 08/10/22 11:13 SINGLE VIEW CHEST CLINICAL HISTORY: Fall. Right femoral fracture. FINDINGS: An AP, portable, supine chest radiograph is obtained. No prior studies are available for comparison at the time of dictation. The examination is degraded by portable technique comment apical lordotic positioning, and patient rotation. The cardiomediastinal silhouette is top normal for projection. The lungs and pleural spaces are clear noting mild bibasilar atelectasis. No pneumothorax is seen. The skeletal structures are osteopenic. The bony thorax is grossly intact. Cholecystectomy clips are seen in the right upper quadrant. IMPRESSION: No active disease in the chest. ACT 112: Negative or not required by law. Electronically signed by: Rupert Stringer M.D. 08/10/2022 12:04 PM Femur X-Ray 08/10/22 11:13 XR pelvis 1-2V routine, XR femur RT 2V routine HISTORY: 67 years-old Female fall acute pelvic pain status post fall COMPARISON: None TECHNIQUE: AP view of the pelvis with 2 views of the right femur FINDINGS: PELVIS: Moderate left hip osteoarthritis. Right hip arthroplasty with acute periprosthetic fracture. Moderate soft tissue swelling of the right hip and g luteal tissues. No acute pelvic ring fracture identified. FEMUR: Right hip arthroplasty. There is an acute periprosthetic fracture with fracture extending inferiorly into the proximal diaphyseal region demonstrating cortical offset/displacement of 4 mm. Greater short enteric fracture fragment is displaced several centimeters superiorly with mild comminution. Fracture fragment displaced anteriorly 4.6 L. Moderate soft tissue swelling of the right thigh. Lateral skin deyanira. IMPRESSION: Right hip arthroplasty with acute and displaced periprosthetic proximal femoral fracture. ACT 112: Negative or not required by law. The above report was generated using voice recognition software. It may contain grammatical, syntax or spelling errors. Electronically signed by: Buddy Rod M.D. 08/10/2022 12:[address] 08/10/22 11:13 CT SCAN OF THE BRAIN WITHOUT IV CONTRAST CLINICAL HISTORY: Fall. Head injury. COMPARISON STUDY: No priors. TECHNIQUE: Unenhanced axial CT scan of the brain is performed from the vertex to the skull base. A dose lowering technique was utilized adhering to the principles of ALARA. CT DOSE: 1425.85 mGy.cm FINDINGS: Brain parenchyma: There is age-related involutional change noting minimal microangiopathic disease. There is no hemorrhage, mass effect, or evidence of acute territorial ischemia by CT criteria. Mayer-white matter differentiation is preserved. No extra-axial fluid collection is seen. Ventricles, sulci, cisterns: Prominent secondary to involutional change. Intracranial vasculature: There is atherosclerotic calcification of the cavernous carotid arteries. Calvarium: The skeletal structures are osteopenic. No depressed calvarial fracture is identified. Soft tissues: There is right frontal scalp contusion. Sinuses and mastoids: The visualized paranasal sinuses are clear. The mastoid air cells are well pneumatized. Orbits: The bony orbits are grossly intact. There are bilateral ocular lens implants. IMPRESSION: There is no hemorrhage, mass effect, or evidence of acute territorial ischemia by CT criteria. ACT 112: Negative or not required by law. Electronically signed by: Rupert Stringer M.D. 08/10/2022 11:37 AM Pelvis X-Ray 08/10/22 11:13 XR pelvis 1-2V routine, XR femur RT 2V routine HISTORY: 67 years-old Female fall acute pelvic pain status post fall COMPARISON: None TECHNIQUE: AP view of the pelvis with 2 views of the right femur FINDINGS: PELVIS: Moderate left hip osteoarthritis. Right hip arthroplasty with acute periprosthe tic fracture. Moderate soft tissue swelling of the right hip and gluteal tissues. No acute pelvic ring fracture identified. FEMUR: Right hip arthroplasty. There is an acute periprosthetic fracture with fracture extending inferiorly into the proximal diaphyseal region demonstrating cortical offset/displacement of 4 mm. Greater short enteric fracture fragment is displaced several centimeters superiorly with mild comminution. Fracture fragment displaced anteriorly 4.6 L. Moderate soft tissue swelling of the right thigh. Lateral skin deyanira. IMPRESSION: Right hip arthroplasty with acute and displaced periprosthetic proximal femoral fracture. ACT 112: Negative or not required by law. The above report was generated using voice recognition software. It may contain grammatical, syntax or spelling errors. Electronically signed by: Buddy Rod M.D. 08/10/2022 12:02 PM ECG Data Attestation: I personally reviewed and interpreted this ECG as follows: Rate (beats per minute): 82 Rhythm: + normal sinus ECG Intervals/blocks: + Normal QRS, + Normal CT and + Normal QT-c ECG ST segments: + Normal ST segments MDM Narrative 1101: The patient was evaluated in room A11. A complete history and physical exam was performed Cardiac monitoring: An order was placed for continuous cardiac monitoring. The monitor shows a rate of 80 with sinus rhythm interpreted by 1215: X-rays reviewed by do show periprosthetic fracture. Confirmed by radiology. Discussed with the patient's operating surgeon Dr. Krishnamurthy who states he is not in [place] until Tuesday and is asking if the patient could be transferred to [facility] as he is operating there tomorrow. 1230: Dr. Krishnamurthy called back and states he should be able to rearrange his schedule to accommodate the patient and states that the patient can be admitted to this facility. Patient will be admitted to the medicine team. Impression & Plan Closed hip fracture Discharge Plan Visit Data Chief Complaint: Fall ED Provider: Smith Tran Discharge Problem: Closed hip fracture Patient Disposition: Admitted As Inpatient Forms Stand Alone Forms: [facility] Prescriptions Prescriptions: No Action fluoxetine [Prozac] 40 mg Capsule 60 mg PO QAM ondansetron HCl [Zofran] 4 mg Tablet 4 mg PO Q6H PRN (Reason: Nausea) meclizine 25 mg Capsule 25 mg PO TID PRN (Reason: Dizziness) hydrocodone-acetaminophen [[place]] 7.5-325 mg Tablet 1 tab PO BID PRN (Reason: Pain) pantoprazole [Protonix] 40 mg Tablet,Delayed Release (Dr/Ec) 40 mg PO DAILY PRN (Reason: Acid Reflux) simvastatin [Zocor] 20 mg Tablet 20 mg PO HS aspirin 81 mg Tablet 81 mg PO QAM pioglitazone [Actos] 30 mg Tablet 30 mg PO QAM dxjqopk-lulmjqriq-qnes 333-133-5 mg Tablet 2 tab PO DAILY Probiotic 3 billion cell Capsule 3,000 mmu cells PO DAILY lisinopril 20 mg tablet 20 mg PO DAILY amlodipine 5 mg tablet 5 mg PO DAILY buspirone 7.5 mg tablet 7.5 mg PO TID dicyclomine 10 mg capsule 10 mg PO QID PRN (Reason: Abdominal Pain) Referrals Referrals: Gisselle Mathews [Primary Care Provider] -
--- NOTE | 2022-08-10 11:38 | CT Scan Report ---
CT SCAN OF THE BRAIN WITHOUT IV CONTRAST CLINICAL HISTORY: Fall. Head injury. COMPARISON STUDY: No priors. TECHNIQUE: Unenhanced axial CT scan of the brain is performed from the vertex to the skull base. A do se lowering technique was utilized adhering to the principles of ALARA. CT DOSE: 1425.85 mGy.cm FINDINGS: Brain parenchyma: There is age-related involutional change noting minimal microangiopathic disease. T here is no hemorrhage, mass effect, or evidence of acute territorial ischemia by CT criteria. Mayer-wh ite matter differentiation is preserved. No extra-axial fluid collection is seen. Ventricles, sulci, cisterns: Prominent secondary to involutional change. Intracranial vasculature: There is atherosclerotic calcification of the cavernous carotid arteries. Calvarium: The skeletal structures are osteopenic. No depressed calvarial fracture is identified. Soft tissues: There is right frontal scalp contusion. Sinuses and mastoids: The visualized paranasal sinuses are clear. The mastoid air cells are well pneu matized. Orbits: The bony orbits are grossly intact. There are bilateral ocular lens implants. IMPRESSION: There is no hemorrhage, mass effect, or evidence of acute territorial ischemia by CT lindy robertson. ACT 112: Negative or not required by law. Electronically signed by: Rupert Stringer M.D. 08/10/2022 11:37 AM
--- NOTE | 2022-08-10 11:44 | CT Scan Report ---
CT SCAN OF THE CERVICAL SPINE CLINICAL HISTORY: Trauma. Fall. COMPARISON STUDY: No priors. TECHNIQUE: CT scan of the cervical spine is performed from the skull base to the upper thoracic spine . Images are reviewed in the axial, sagittal, and coronal planes. IV contrast was not administered fo r this examination. A dose lowering technique was utilized adhering to the principles of ALARA. FINDINGS: Skeletal structures: The skeletal structures are osteopenic. There is no evidence of fracture or subl uxation involving the cervical spine. Vertebral body height and alignment are maintained. There is st raightening of the cervical lordosis. The odontoid process and lateral masses are intact. The atlanto axial articulation is preserved noting mild productive degenerative change. A bone island is noted in the body of T1. The spinous processes appear intact. Intervertebral discs: There is mild disc space narrowing, greatest at C6-C7 and C7-T1. Central canal: Grossly patent. Soft tissues: The prevertebral and paraspinous soft tissues are within normal limits. There is a 4 cm nodule arising from the right lobe of the thyroid gland. Calvarium: The visualized calvarium at the skull base appears intact. Brain parenchyma: Partially visualized brain parenchyma at the skull base is within normal limits. Sinuses and mastoids: The visualized paranasal sinuses are clear. The mastoid air cells are well pneu matized. Lung apices: Clear as visualized. IMPRESSION: 1. There is no evidence of fracture or subluxation involving the cervical spine. 2. Osteopenia and mild spondylotic changes above. 3. There is a 4 cm nodule/lesion arising from the right lobe of the thyroid gland. If not already per formed, an ultrasound-guided fine-needle aspiration is recommended. ACT 112: Positive. There are findings on this exam that require communication between the performing entity and the patient following Patient Test Result Information Act ([place] Act 112) guidelines. Electronically signed by: Rupert Stringer M.D. 08/10/2022 11:43 AM
--- NOTE | 2022-08-10 12:03 | XRay Report ---
XR pelvis 1-2V routine, XR femur RT 2V routine HISTORY: 67 years-old Female fall acute pelvic pain status post fall COMPARISON: None TECHNIQUE: AP view of the pelvis with 2 views of the right femur FINDINGS: PELVIS: Moderate left hip osteoarthritis. Right hip arthroplasty with acute periprosthetic fracture. Moderate soft tissue swelling of the right hip and gluteal tissues. No acute pelvic ring fracture identified. FEMUR: Right hip arthroplasty. There is an acute periprosthetic fracture with fracture extending inferiorly into the proximal diaphyseal region demonstrating cortical offset/displacement of 4 mm. Greater short enteric fracture fragment is displaced several centimeters superiorly with mild comminution. Fractur e fragment displaced anteriorly 4.6 L. Moderate soft tissue swelling of the right thigh. Lateral skin deyanira. IMPRESSION: Right hip arthroplasty with acute and displaced periprosthetic proximal femoral fracture. ACT 112: Negative or not required by law. The above report was generated using voice recognition software. It may contain grammatical, syntax o r spelling errors. Electronically signed by: Buddy Rod M.D. 08/10/2022 12:02 PM
[2022-08-10] MEDS ORDERED: MoRPHine SULFATE 2 MG/ML CARP IV PRN (12:04)
[2022-08-10] MEDS ORDERED: MoRPHine SULFATE 4 MG/ML 1 ML CARP\\VIAL IV PRN (12:04)
--- NOTE | 2022-08-10 12:06 | XRay Report ---
SINGLE VIEW CHEST CLINICAL HISTORY: Fall. Right femoral fracture. FINDINGS: An AP, portable, supine chest radiograph is obtained. No prior studies are available for co mparison at the time of dictation. The examination is degraded by portable technique comment apical l ordotic positioning, and patient rotation. The cardiomediastinal silhouette is top normal for projec tion. The lungs and pleural spaces are clear noting mild bibasilar atelectasis. No pneumothorax is se en. The skeletal structures are osteopenic. The bony thorax is grossly intact. Cholecystectomy clips are seen in the right upper quadrant. IMPRESSION: No active disease in the chest. ACT 112: Negative or not required by law. Electronically signed by: Rupert Stringer M.D. 08/10/2022 12:04 PM
--- NOTE | 2022-08-10 12:55 | History & Physical Report ---
Date of Service August 10, 2022 Assessment & Plan (1) Periprosthetic fracture around internal prosthetic right hip joint: (2) Diabetes mellitus, type II: (3) Hyperlipidemia: (4) HTN (hypertension): (5) Anxiety and depression: (6) Breast cancer: (7) IBS (irritable bowel syndrome): Plan This is a 67yo F with PMH of HTN, DM II, HLD, mood disorder, h/o breast cancer s/p partial mastectomy and other medical problems listed below who is postop day 1 status post total right hip replacement by Dr. Krishnamurthy performed at outpatient surgery center in [place] yesterday presenting with right hip pain after fall. Acute periprosthetic fracture POD#1 s/p total RHA by Dr. Krishnamurthy, presenting after a fall earlier this morning Pelvis XR with Right hip arthroplasty with acute and displaced periprosthetic proximal femoral fracture CT head, c-spine CT and CXR without acute traumatic findings Optimize pain control, Dr. 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 If not already performed, an ultrasound-guided fine-needle aspiration is recommended DVT Ppx: SCD on LLE PCP: Gisselle Mathews ([place]) Dispo: Admitted to med/surg Patient seen in collaboration with Dr. Salguero. Please see addendum. I spent a total of 75 minutes coordinating, documenting, and providing care for this patient excluding time spent in the performance of separately billed services. History of Present Illness Chief Complaint: hip pain Primary Care Provider: Gisselle Mathews This is a 67yo F with PMH of HTN, DM II, HLD, mood disorder, h/o breast cancer s/p partial mastectomy and other medical problems listed below who is postop day 1 status post total right hip replacement by Dr. Krishnamurthy performed at outpatient surgery center in [place] yesterday presenting with right hip pain after fall. Had surgery yesterday morning and got home around 2 PM. Around 11 PM, when she was getting ready to go to bed and was being assisted to stand, felt a pop in her hip replacement. Was able to go to bed but in the morning when her son helped her ambulate to the bathroom and was attempting to sit down again when she heard a pop and fell forward, landing face first on the floor. Called EMS and brought patient in for further evaluation. Pain is a throbbing, 10/10 pain on inside aspect of hip with radiation towards her knee. No headache, lightheadedness, CP, SOB, N/V, abdominal pain, dysuria, diarrhea or constipation. Did not take any home medications. Receives primary care in [place]. Allergies Allergy/AdvReac Type Severity Reaction Status Date / Time dicyclomine Allergy Unknown rash Verified 02/18/20 06:27 bupropion AdvReac Unknown mood swings Verified 02/18/20 06:27 hyscyamine Allergy Unknown rash Uncoded 02/18/20 06:27 surgical tape AdvReac Unknown BROWN Uncoded 02/18/20 06:27 SURGICAL TAPE - rash Home Medications Medication Instructions Recorded Confirmed Type aspirin 81 mg tablet 81 mg PO QAM 02/01/20 08/10/22 History hstixit-syuqabxww-erww 333 mg-133 2 tab PO DAILY 02/01/20 08/10/22 History mg-5 mg tablet fluoxetine 40 mg capsule (Prozac) 60 mg PO QAM 02/01/20 08/10/22 History hydrocodone 7.5 mg-acetaminophen 1 tab PO BID PRN Pain 02/01/20 08/10/22 History 325 mg tablet ([place]) lactobacillus combination no.4 3 3,000 mmu cells PO DAILY 02/01/20 08/10/22 History billion cell capsule (Probiotic) meclizine 25 mg capsule 25 mg PO TID PRN Dizziness 02/01/20 08/10/22 History ondansetron HCl 4 mg tablet 4 mg PO Q6H PRN Nausea 02/01/20 08/10/22 History (Zofran) pantoprazole 40 mg tablet,delayed 40 mg PO DAILY PRN Acid Reflux 02/01/20 08/10/22 History release (Protonix) pioglitazone 30 mg tablet (Actos) 30 mg PO QAM 02/01/20 08/10/22 History simvastatin 20 mg tablet (Zocor) 20 mg PO HS 02/01/20 08/10/22 History amlodipine 5 mg tablet 5 mg PO DAILY 08/10/22 08/10/22 History buspirone 7.5 mg tablet 7.5 mg PO TID 08/10/22 08/10/22 History dicyclomine 10 mg capsule 10 mg PO QID PRN Abdominal Pain 08/10/22 08/10/22 History lisinopril 20 mg tablet 20 mg PO DAILY 08/10/22 08/10/22 History Past Med/Surg History Medical History (Updated 08/10/22 @ 14:29 by Marta Vitale PA-C) Acid reflux Age related osteoporosis OSTEOPEROSIS Anxiety and depression Diabetes mellitus, type II History of breast cancer LEFT, HX RADIATION History of fall JAN 03 2020TRIPPED OVER SOMETHING AT [facility] -INJURED SELF - NOT DX WITH 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 HTN (hypertension) Hyperlipidemia IBS (irritable bowel syndrome) Surgical History History of History of colonoscopy History of hysterectomy History of partial mastectomy of left breast History of reduction surgery of right breast History of surgery LEFT LEG X2 History of total left knee replacement S/P hip replacement Family History Mother Family history of diabetes mellitus Other Family history of diabetes mellitus in father Patient's father is Social History Smoking Status: Never smoker Second Hand Exposure: No; Do You Dip or Chew Tobacco: No; Hx Alcohol Use: No Preferred Language: Cuban 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 Physical Exam Physical Exam: General Appearance: WD/WN, vitals as above, NAD, sitting up in bed, pleasant, obese, in acute pain Head: normocephalic, atraumatic Eyes: normal inspection, PERRL, conjunctivae normal, anicteric sclerae ENT: external ear and nose normal, oropharynx normal Neck: normal visual inspection, trachea midline, no thyromegaly Respiratory: normal respiratory effort, lungs clear to auscultation, no wheeze, rales, rhonchi. No accessory muscle use Cardiovascular: regular rate, rhythm, no murmur, normal peripheral pulses, no BLE edema. Vessels: no JVD Chest: normal inspection of chest Abdomen/GI: normal bowel sounds, soft, nontender, no hepatosplenomegaly Extremities/Musculoskeletal: no cyanosis or clubbing, extremities motor strength 5/5. + R medial thigh with palpable displacement and ecchymosis, TTP, RLE externally rotated : Gloria Neurologic: PERRL, EOMI, accommodation nl, no face palsy, no dysarthria, CN's II-XI intact bilaterally and moves all extremities Psychiatric: A+Ox3, euthymic affect Skin: no rashes, normal color, warm/dry Results & Data Results & Data Vital Signs (Past 12 Hours) Vital Signs Temp Pulse Resp BP Pulse Ox O2 Del Method 08/10/22 11:23 97 Room Air 08/10/22 10:11 36.5 C 78 18 138/78 97 Room Air Laboratory Results Short CBC 08/10/22 Range/Units 12:10 WBC 8.90 (4.8-10.8) K/ul Hgb 10.0 L (12.0-16.0) g/dl Hct 31.2 L (37.0-47.0) % Plt Count 179 (130-400) K/uL BMP 08/10/22 12:10 Sodium 138 Potassium 3.8 Chloride 108 H Carbon Dioxide 26 BUN 16 Creatinine 1.01 Glucose 122 H Calcium 8.6 Urine 08/10/22 Range/Units 13:33 Urine Color Yellow Urine Appearance Clear (Clear) Urine pH 6.0 (4.5-7.5) Ur Specific [place] 1.020 (1.000-1.030) Urine Protein Negative (Negative) Urine Glucose (UA) Negative (Negative) Diagnostic Findings Cervical Spine CT 08/10/22 11:13 CT SCAN OF THE CERVICAL SPINE CLINICAL HISTORY: Trauma. Fall. COMPARISON STUDY: No priors. TECHNIQUE: CT scan of the cervical spine is performed from the skull base to the upper thoracic spine. Images are reviewed in the axial, sagittal, and coronal planes. IV contrast was not administered for this examination. A dose lowering technique was utilized adhering to the principles of ALARA. FINDINGS: Skeletal structures: The skeletal structures are osteopenic. There is no evidence of fracture or subluxation involving the cervical spine. Vertebral body height and alignment are maintained. There is straightening of the cervical lordosis. The odontoid process and lateral masses are intact. The atlantoaxial articulation is preserved noting mild productive degenerative change. A bone island is noted in the body of T1. The spinous processes appear intact. Intervertebral discs: There is mild disc space narrowing, greatest at C6-C7 and C7-T1. Central canal: Grossly patent. Soft tissues: The prevertebral and paraspinous soft tissues are within normal limits. There is a 4 cm nodule arising from the right lobe of the thyroid gland. Calvarium: The visualized calvarium at the skull base appears intact. Brain parenchyma: Partially visualized brain parenchyma at the skull base is within normal limits. Sinuses and mastoids: The visualized paranasal sinuses are clear. The mastoid air cells are well pneumatized. Lung apices: Clear as visualized. IMPRESSION: 1. There is no evidence of fracture or subluxation involving the cervical spine. 2. Osteopenia and mild spondylotic changes above. 3. There is a 4 cm nodule/lesion arising from the right lobe of the thyroid gland. If not already performed, an ultrasound-guided fine-needle aspiration is recommended. ACT 112: Positive. There are findings on this exam that require communication between the performing entity and the patient following Patient Test Result Information Act ([place] Act 112) guidelines. Electronically signed by: Rupert Stringer M.D. 08/10/2022 11:43 AM Chest X-Ray 08/10/22 11:13 SINGLE VIEW CHEST CLINICAL HISTORY: Fall. Right femoral fracture. FINDINGS: An AP, portable, supine chest radiograph is obtained. No prior studies are available for comparison at the time of dictation. The examination is degraded by portable technique comment apical lordotic positioning, and patient rotation. The cardiomediastinal silhouette is top normal for projection. The lungs and pleural spaces are clear noting mild bibasilar atelectasis. No pneumothorax is seen. The skeletal structures are osteopenic. The bony thorax is grossly intact. Cholecystectomy clips are seen in the right upper quadrant. IMPRESSION: No active disease in the chest. ACT 112: Negative or not required by law. Electronically signed by: Rupert Stringer M.D. 08/10/2022 12:04 PM Femur X-Ray 08/10/22 11:13 XR pelvis 1-2V routine, XR femur RT 2V routine HISTORY: 67 years-old Female fall acute pelvic pain status post fall COMPARISON: None TECHNIQUE: AP view of the pelvis with 2 views of the right femur FINDINGS: PELVIS: Moderate left hip osteoarthritis. Right hip arthroplasty with acute periprosthetic fracture. Moderate soft tissue swelling of the right hip and gluteal tissues. No acute pelvic ring fracture identified. FEMUR: Right hip arthroplasty. There is an acute periprosthetic fracture with fracture extending inferiorly into the proximal diaphyseal region demonstrating cortical offset/displacement of 4 mm. Greater short enteric fracture fragment is displ aced several centimeters superiorly with mild comminution. Fracture fragment displaced anteriorly 4.6 L. Moderate soft tissue swelling of the right thigh. Lateral skin deyanira. IMPRESSION: Right hip arthroplasty with acute and displaced periprosthetic proximal femoral fracture. ACT 112: Negative or not required by law. The above report was generated using voice recognition software. It may contain grammatical, syntax or spelling errors. Electronically signed by: Buddy Rod M.D. 08/10/2022 12:[address] 08/10/22 11:13 CT SCAN OF THE BRAIN WITHOUT IV CONTRAST CLINICAL HISTORY: Fall. Head injury. COMPARISON STUDY: No priors. TECHNIQUE: Unenhanced axial CT scan of the brain is performed from the vertex to the skull base. A dose lowering technique was utilized adhering to the principles of ALARA. CT DOSE: 1425.85 mGy.cm FINDINGS: Brain parenchyma: There is age-related involutional change noting minimal microangiopathic disease. There is no hemorrhage, mass effect, or evidence of acute territorial ischemia by CT criteria. Mayer-white matter differentiation is preserved. No extra-axial fluid collection is seen. Ventricles, sulci, cisterns: Prominent secondary to involutional change. Intracranial vasculature: There is atherosclerotic calcification of the cavernous carotid arteries. Calvarium: The skeletal structures are osteopenic. No depressed calvarial fracture is identified. Soft tissues: There is right frontal scalp contusion. Sinuses and mastoids: The visualized paranasal sinuses are clear. The mastoid air cells are well pneumatized. Orbits: The bony orbits are grossly intact. There are bilateral ocular lens implants. IMPRESSION: There is no hemorrhage, mass effect, or evidence of acute t erritorial ischemia by CT criteria. ACT 112: Negative or not required by law. Electronically signed by: Rupert Stringer M.D. 08/10/2022 11:37 AM Pelvis X-Ray 08/10/22 11:13 XR pelvis 1-2V routine, XR femur RT 2V routine HISTORY: 67 years-old Female fall acute pelvic pain status post fall COMPARISON: None TECHNIQUE: AP view of the pelvis with 2 views of the right femur FINDINGS: PELVIS: Moderate left hip osteoarthritis. Right hip arthroplasty with acute periprosthetic fracture. Moderate soft tissue swelling of the right hip and gluteal tissues. No acute pelvic ring fracture identified. FEMUR: Right hip arthroplasty. There is an acute periprosthetic fracture with fracture extending inferiorly into the proximal diaphyseal region demonstrating cortical offset/displacement of 4 mm. Greater short enteric fracture fragment is displaced several centimeters superiorly with mild comminution. Fracture fragment displaced anteriorly 4.6 L. Moderate soft tissue swelling of the right thigh. Lateral skin deyanira. IMPRESSION: Right hip arthroplasty with acute and displaced periprosthetic proximal femoral fracture. ACT 112: Negative or not required by law. The above report was generated using voice recognition software. It may contain grammatical, syntax or spelling errors. Electronically signed by: Buddy Rod M.D. 08/10/2022 12:02 PM ECG Additional Comments: EKG reviewed: Normal sinus rhythm Nonspecific ST abnormality Code Status & VTE Plan VTE Prophylaxis Plan VTE Prophylaxis will be ordered: Yes Supervising Physician Co-Signing Physician Notes Pt is a 67 y/o F with hx of DMII, HTn, L breast ca s/p surgery, Osteoporosis, Anxiety, GERD, HLD and recent hx of R hip replacement admitted for R hip with fall Xray showed: Right hip arthroplasty with acute and displaced periprosthetic proximal femoral fracture PE: Obese pt, NAD Lungs: CTA, no wheezing or crackles Cardiac: Normal S1/S2, no murmur Abd: obese abd, NT, ND, soft MSK: R hip lateral area swelling with TTP, unable to move the R leg Psych: AAOx3, normal affect A/P: R Periprosthetic proximal femoral fracture with fall: -CT head: no acute finding -VSS -will do prn morphine 1mg q4hr for pain management --- will hold pt;s home [place] while on morphine -Hgb is slightly low: likely 2/2 recent surgery -NPO after MN -ortho consult - Pt is acceptable risk for surgery Agree with A/P by Marta Vitale PA-C
[2022-08-10 12:57] LABS: Basophils # (auto) 0.01 K/uL (0-0.2); Basophils % (auto) 0.1 %; Hematocrit (blood only) 31.2 % (37.0-47.0); Immature Granulocytes # (auto) 0.03 K/uL (0.01-0.20); Immature Granulocytes % (auto) 0.3 %; Lymphocytes # (auto) 0.55 K/uL (1.2-3.4); Lymphocytes % (auto) 6.2 %; Mean Corpuscular Hemoglobin 29.6 pg (25.0-34.0); Mean Corpuscular Hgb Conc 32.1 g/dL (32.0-36.0); Mean Corpuscular Volume 92.3 fL (80.0-100.0); Mean Platelet Volume 11.5 fL (9.4-12.4); Monocytes # (auto) 0.74 K/uL (0.11-0.59); Monocytes % (auto) 8.3 %; Neutrophils # (auto) 7.57 K/uL (1.40-6.50); Neutrophils % (auto) 85.1 %; Platelet Count 179 K/uL (130-400); RDW Coefficient of Variation 13.8 % (11.5-14.5); RDW Standard Deviation 46.7 fL (36.4-46.3); Red Blood Count 3.38 M/uL (4.20-5.40)
[2022-08-10 13:00] LABS: BUN Creatinine Ratio 15.8 (10-20); Calcium 8.6 mg/dl (8.6-10.3); Est GFR (African American) 66.7 ml/min; Est GFR (Non-African American) 57.6 ml/min; Potassium 3.8 mmol/L (3.5-5.1)
[2022-08-10 13:11] LABS: Partial Thromboplastin Ratio 1.1; Partial Thromboplastin Time 31.3 Seconds (21.0-31.0); Prothrombin Time 11.3 Seconds (9.0-12.0)
[2022-08-10 13:49] LABS: Appearance Urine Clear (Clear); Bilirubin Urine Negative (Negative); Blood Urine Negative (Negative); Color Urine Yellow; Glucose Urine UA Negative (Negative); Ketones Urine Trace (Negative); Leukocyte Esterase Urine Negative (Negative); Nitrite Urine Negative (Negative); Protein Urine Negative (Negative); Urobilinogen Urine Negative (Negative)
[2022-08-10] MEDS ORDERED: ACETAMINOPHEN 500 MG TAB PO STA (15:29)
[2022-08-10] MEDS ORDERED: SODIUM CHLORIDE 0.9% 500 ML IV SCH (15:45)
[2022-08-10] MEDS ORDERED: POLYETHYLENE (MIRALAX) 17 GM PACK PO PRN (16:46)
[2022-08-10] MEDS ORDERED: PANTOprazole 40 MG TAB PO PRN (16:46)
[2022-08-10] MEDS ORDERED: ONDANSETRON INJ 2 MG/ML 2 ML VIAL IV PRN (16:46)
[2022-08-10] MEDS ORDERED: GLUCOSE 40% GEL 15 GM TUBE PO PRN (16:46)
[2022-08-10] MEDS ORDERED: GLUCAGON FOR INJ 1 MG VIAL SQ PRN (16:46)
[2022-08-10] MEDS ORDERED: MAGNESIUM HYDROXIDE SUSP 30 ML UDC PO PRN (16:46)
[2022-08-10] MEDS ORDERED: DICYCLOMINE HCL 10 MG CAP PO PRN (16:46)
[2022-08-10] MEDS ORDERED: DEXTROSE 50% 50 ML SYRINGE IV PRN (16:46)
[2022-08-10] MEDS ORDERED: bisacodyL 10 MG SUPP PR PRN (16:46)
[2022-08-10] MEDS ORDERED: GLUCOSE 10 TAB/TUBE PO PRN (16:46)
[2022-08-10] MEDS ORDERED: NALOXONE HCL 0.4 MG/1 ML VIAL/CARP IV PRN (16:46)
[2022-08-10] MEDS ORDERED: CARBOHYDRATES FOR HYPOGLYCEMIA PO PRN (16:46)
[2022-08-10] MEDS ORDERED: MECLIZINE HCL 25 MG TAB PO PRN (17:07)
[2022-08-10] MEDS: MoRPHine SULFATE 4 MG/ML 1 ML CARP\\VIAL IV PRN (17:47)
[2022-08-10] MEDS: ACETAMINOPHEN 500 MG TAB PO SCH (17:56)
--- NOTE | 2022-08-10 18:12 | Anesthesiology Consultation ---
Date of Service August 10, 2022 Assessment & Plan Chart Review Chart Review: Acceptable Risk for Surgery Consults Requested none History Surgery Operation Date: 08/12/22 09:05 Proposed Procedures p Revision Right Total Hip Arthroplasty, Open Reduction Internal Fixation - Buddy Krishnamurthy DO Height/Weight Height: 5 ft 5 in Weight: 113.8 kg Allergies Allergy/AdvReac Type Severity Reaction Status Date / Time dicyclomine Allergy Unknown rash Verified 02/18/20 06:27 bupropion AdvReac Unknown mood swings Verified 02/18/20 06:27 hyscyamine Allergy Unknown rash Uncoded 02/18/20 06:27 surgical tape AdvReac Unknown BROWN Uncoded 02/18/20 06:27 SURGICAL TAPE - rash Medications Home Medications Medication Instructions Recorded Confirmed Last Taken aspirin 81 mg tablet 81 mg PO QAM 02/01/20 08/10/22 Unknown [id number] 333 mg-133 2 tab PO DAILY 02/01/20 08/10/22 02/17/20 mg-5 mg tablet fluoxetine 40 mg capsule (Prozac) 60 mg PO QAM 02/01/20 08/10/22 02/18/20 04:30 hydrocodone 7.5 mg-acetaminophen 1 tab PO BID PRN Pain 02/01/20 08/10/22 Unknown 325 mg tablet ([place]) lactobacillus combination no.4 3 3,000 mmu cells PO DAILY 02/01/20 08/10/22 02/17/20 billion cell capsule (Probiotic) meclizine 25 mg capsule 25 mg PO TID PRN Dizziness 02/01/20 08/10/22 Unknown ondansetron HCl 4 mg tablet 4 mg PO Q6H PRN Nausea 02/01/20 08/10/22 Unknown (Zofran) pantoprazole 40 mg tablet,delayed 40 mg PO DAILY PRN Acid Reflux 02/01/20 08/10/22 02/17/20 release (Protonix) pioglitazone 30 mg tablet (Actos) 30 mg PO QAM 02/01/20 08/10/22 02/17/20 simvastatin 20 mg tablet (Zocor) 20 mg PO HS 02/01/20 08/10/22 02/17/20 amlodipine 5 mg tablet 5 mg PO DAILY 08/10/22 08/10/22 Unknown buspirone 7.5 mg tablet 7.5 mg PO TID 08/10/22 08/10/22 Unknown dicyclomine 10 mg capsule 10 mg PO QID PRN Abdominal Pain 08/10/22 08/10/22 Unknown lisinopril 20 mg tablet 20 mg PO DAILY 08/10/22 08/10/22 Unknown Active Medications Generic Name Dose Route Start Last Admin Trade Name Freq PRN Reason Stop Dose Admin Acetaminophen 1,000 mg 08/10/22 17:00 08/10/22 17:56 Acetaminophen 500 Mg Tab PO 09/09/22 16:59 1,000 mg Q8H BARB Administration Sodium Chloride 500 mls @ 125 mls/hr 08/10/22 15:45 08/10/22 17:57 Nss IV 08/10/22 19:44 125 mls/hr .Q4H BARB Administration Morphine Sulfate 4 mg 08/10/22 16:46 08/10/22 17:47 Morphine Sulfate 4 Mg/Ml 1 Ml Carp\Vial IV 08/24/22 16:45 4 mg Q4H PRN Administration Severe Pain (Scale 7, 8, 9,10) Past Medical History Medical History (Updated 08/10/22 @ 14:29 by Marta Vitale PA-C) Acid reflux Age related osteoporosis OSTEOPEROSIS Anxiety and depression Diabetes mellitus, type II History of breast cancer LEFT, HX RADIATION History of fall JAN 03 2020TRIPPED OVER SOMETHING AT [employer] -INJURED SELF - NOT DX 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 HTN (hypertension) Hyperlipidemia IBS (irritable bowel syndrome) Past Family History Family History Mother Family history of diabetes mellitus Other Family history of diabetes mellitus in father Patient's father is Past Surgical History Surgical History History of History of colonoscopy History of hysterectomy History of partial mastectomy of left breast History of reduction surgery of right breast History of surgery LEFT LEG X2 History of total left knee replacement S/P hip replacement Social History Smoking Status: Never smoker Do You Dip or Chew Tobacco: No Hx Alcohol Use: No substance use type: does not use Physical Exam Vital Signs Last Vital Signs Temp 36.6 C 08/10/22 16:30 Pulse 74 08/10/22 16:30 Resp 16 08/10/22 16:30 BP 120/75 08/10/22 16:30 Pulse Ox 95 08/10/22 16:30 O2 Del Method Room Air 08/10/22 16:30 Testing Laboratory Results 08/10/22 12:10 08/10/22 12:10 PT 11.3 Seconds (9.0-12.0) 08/10/22 12:10 INR 1.0 (0.9-1.1) 08/10/22 12:10 APTT 31.3 Seconds (21.0-31.0) H 08/10/22 12:10 Urine Color Yellow 08/10/22 13:33 Urine Appearance Clear (Clear) 08/10/22 13:33 Urine pH 6.0 (4.5-7.5) 08/10/22 13:33 Ur Specific [place] 1.020 (1.000-1.030) 08/10/22 13:33 Urine Protein Negative (Negative) 08/10/22 13:33 Urine Glucose (UA) Negative (Negative) 08/10/22 13:33 Urine Ketones Trace (Negative) H 08/10/22 13:33 Urine Nitrite Negative (Negative) 08/10/22 13:33 Ur Leukocyte Esterase Negative (Negative) 08/10/22 13:33 08/10/22 17:02 POC Glucose 100 H
[2022-08-10] MEDS: INSULIN ASPART PER UNIT CHARGE SC SCH ×2 (18:58→21:49)
[2022-08-10] MEDS: busPIRone 7.5 MG TAB PO SCH ×2 (19:02→22:46)
[2022-08-10] MEDS: FLUoxetine HCL 20 MG CAP PO SCH (19:03)
[2022-08-10] MEDS: SIMVASTATIN 20 MG TAB PO SCH (19:56)
[2022-08-10] MEDS: DOCUSATE SODIUM/SENNA 50/8.6MG TAB PO SCH (19:57)
--- NOTE | 2022-08-10 20:29 | Electrocardiogram Report ---
Test Reason : Blood Pressure : / mmHG Vent. Rate : 082 BPM Atrial Rate : 082 BPM P-R Int : 142 ms QRS Dur : 086 ms QT Int : 410 ms P-R-T Axes : 043 020 030 degrees QTc Int : 479 ms Normal sinus rhythm Nonspecific ST abnormality Abnormal ECG When compared with ECG of 16-JUN-2017 12:29, Nonspecific T wave abnormality now evident in Inferior leads Confirmed by Oniel Agustin ([id number]) on 08/10/2022 8:29:07 PM Referred By: REFERRED SELF Confirmed By:Montrell Agustin
[2022-08-11] MEDS: ACETAMINOPHEN 500 MG TAB PO SCH ×3 (00:01→16:47)
[2022-08-11] MEDS ORDERED: TRANEXAMIC ACID / 0.7% NACL 1,000 MG/100 ML BAG IV SCH ×2 (06:00→06:30)
[2022-08-11] MEDS ORDERED: ceFAZolin 2000MG 2,000 MG/15 ML SYR IV SCH (06:00)
[2022-08-11] MEDS: INSULIN ASPART PER UNIT CHARGE SC SCH ×4 (07:05→20:33)
[2022-08-11] MEDS: FLUoxetine HCL 20 MG CAP PO SCH (07:17)
[2022-08-11] MEDS: busPIRone 7.5 MG TAB PO SCH ×3 (07:17→20:59)
[2022-08-11] MEDS: MULTIVITAMIN TAB PO SCH (07:17)
[2022-08-11] MEDS: ADVANCED PROBIOTIC 1250 MG CAPSULE PO SCH (07:18)
[2022-08-11] MEDS: MoRPHine SULFATE 4 MG/ML 1 ML CARP\\VIAL IV PRN ×3 (07:21→18:34)
[2022-08-11] MEDS ORDERED: amLODIPine BESYLATE 5 MG TAB PO SCH (09:00)
[2022-08-11 09:33] LABS: Hematocrit (blood only) 28.7 % (37.0-47.0); Hemoglobin 9.1 g/dl (12.0-16.0); Mean Corpuscular Hemoglobin 29.4 pg (25.0-34.0); Mean Corpuscular Hgb Conc 31.7 g/dL (32.0-36.0); Mean Corpuscular Volume 92.6 fL (80.0-100.0); Mean Platelet Volume 11.7 fL (9.4-12.4); Platelet Count 152 K/uL (130-400); RDW Coefficient of Variation 14.2 % (11.5-14.5); RDW Standard Deviation 48.5 fL (36.4-46.3)
[2022-08-11 09:36] LABS: Estimated Average Glucose 117 mg/dl; Hemoglobin A1C 5.7 % (4.5-5.6)
--- NOTE | 2022-08-11 09:48 | Orthopedic Consultation ---
Date of Consultation August 11, 2022 Assessment & Plan (1) Periprosthetic fracture around internal prosthetic right hip joint: Periprosthetic proximal femur fracture status post right total hip arthroplasty approximately [address] Krishnamurthy. Patient will require revision right ESTUARDO with ORIF of proximal femur fracture. Patient is scheduled for the surgery tomorrow. Surgery has been discussed with the patient of which she is in agreement. She will be made n.p.o. after midnight tonight and plan for surgery tomorrow afternoon. History of Present Illness Reason for Consultation: Right periprosthetic femur fracture Attending Physician: Johann Hussein MD History of Present Illness This is a 67yo F with PMH of HTN, DM II, HLD, mood disorder, h/o breast cancer s/p partial mastectomy and other medical problems listed below who was admitted yesterday after increased hip pain and a fall at home. Patient is postop day 2 of having a right total hip arthroplasty performed by Dr. Krishnamurthy in [place]. Patient states that she got home from the surgery and was doing well. In the evening, she went up to her bedroom with her family helping her. She states she planted her foot and turned to have her back facing the bed to get into bed. It at that point she heard a loud pop. She did have some pain with that but was a ble to get into bed and sleep okay during the night. She got up in the morning to use the restroom. She was being held by family. By the time she got to the restroom, another loud pop or crack was heard and she fell right to the floor. She did not have any loss of consciousness. She denies any shortness of breath or chest pain prior to or after the fall. She had immediate pain in her right h ip and groin. Ambulance was called and transported her here to [facility] ED. X-rays were taken and was found that she had a periprosthetic hip fracture. Patient was then admitted under hospitalist service and we have been asked to take care of her hip fracture. Allergies Allergy/AdvReac Type Severity Reaction Status Date / Time dicyclomine Allergy Unknown rash Verified 02/18/20 06:27 bupropion AdvReac Unknown mood swings Verified 02/18/20 06:27 hyscyamine Allergy Unknown rash Uncoded 02/18/20 06:27 surgical tape AdvReac Unknown BROWN Uncoded 02/18/20 06:27 SURGICAL TAPE - rash Home Medications Medication Instructions Recorded Confirmed Type aspirin 81 mg tablet 81 mg PO QAM 02/01/20 08/10/22 History vdchnyt-[id number] 333 mg-133 2 tab PO DAILY 02/01/20 08/10/22 History mg-5 mg tablet fluoxetine 40 mg capsule (Prozac) 60 mg PO QAM 02/01/20 08/10/22 History hydrocodone 7.5 mg-acetaminophen 1 tab PO BID PRN Pain 02/01/20 08/10/22 History 325 mg tablet ([place]) lactobacillus combination no.4 3 3,000 mmu cells PO DAILY 02/01/20 08/10/22 History billion cell capsule (Probiotic) meclizine 25 mg capsule 25 mg PO TID PRN Dizziness 02/01/20 08/10/22 History ondansetron HCl 4 mg tablet 4 mg PO Q6H PRN Nausea 02/01/20 08/10/22 History (Zofran) pantoprazole 40 mg tablet,delayed 40 mg PO DAILY PRN Acid Reflux 02/01/20 08/10/22 History release (Protonix) pioglitazone 30 mg tablet (Actos) 30 mg PO QAM 02/01/20 08/10/22 History simvastatin 20 mg tablet (Zocor) 20 mg PO HS 02/01/20 08/10/22 History amlodipine 5 mg tablet 5 mg PO DAILY 08/10/22 08/10/22 History buspirone 7.5 mg tablet 7.5 mg PO TID 08/10/22 08/10/22 History dicyclomine 10 mg capsule 10 mg PO QID PRN Abdominal Pain 08/10/22 08/10/22 History lisinopril 20 mg tablet 20 mg PO DAILY 08/10/22 08/10/22 History Patient History Medical History Acid reflux Age related osteoporosis OSTEOPEROSIS Anxiety and depression Diabetes mellitus, type II History of breast cancer LEFT, HX RADIATION History of fall JAN 03 2020TRIPPED OVER SOMETHING AT [facility] -INJURED SELF - NOT DX WITH A [place] - 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 HTN (hypertension) Hyperlipidemia IBS (irritable bowel syndrome) Surgical History History of History of colonoscopy History of hysterectomy History of partial mastectomy of left breast History of reduction surgery of right breast History of surgery LEFT LEG X2 History of total left knee replacement S/P hip replacement Family History Mother Family history of diabetes mellitus Other Family history of diabetes mellitus in father Patient's father is Social History Smoking Status: Never smoker Second Hand Exposure: No; Do You Dip or Chew Tobacco: No; Hx Alcohol Use: No Preferred Language: French Communication Ability: Effective 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 She is alert and oriented x3. No acute distress. Pleasant cooperative. She is com plaining of some right hip pain at this time. On examination of her right lower extremity, it is shortened and externally rotated compared to the left. No attempts were made to remove the right hip and range of motion secondary to fracture. Her knee is nontender on palpation and range of motion is deferred secondary to hip fracture. She has good range of motion of her right ankle and toes and sensation is intact. Left lower extremity is unaffected and patient is nontender at the left hip, knee, ankle range of motion within normal limits. Upper extremities are unaffected at this time. She is nontender at the shoulders, elbows, and wrists. Range of motion was within normal limits. There is no gross motor or sensory loss seen at this time. Distal pulses are 2/4 bilaterally of the upper and lower extremities. Results & Data Vital Signs (Past 12 Hours) Vital Signs Temp Pulse Pulse Resp BP Pulse Ox O2 Del Method 08/11/22 08:00 Room Air 08/11/22 07:55 36.6 C 79 16 107/68 96 Room Air 08/11/22 07:46 36.8 C 79 16 106/63 97 Room Air 08/11/22 03:13 36.6 C 84 16 120/60 93 Room Air Laboratory Results Laboratory Results WBC 5.30 K/ul (4.8-10.8) 08/11/22 08:03 RBC 3.10 M/uL (4.20-5.40) L 08/11/22 08:03 Hgb 9.1 g/dl (12.0-16.0) L 08/11/22 08:03 Hct 28.7 % (37.0-47.0) L 08/11/22 08:03 MCV 92.6 fL (80.0-100.0) 08/11/22 08:03 MCH 29.4 pg (25.0-34.0) 08/11/22 08:03 MCHC 31.7 g/dL (32.0-36.0) L 08/11/22 08:03 RDW Std Deviation 48.5 fL (36.4-46.3) H 08/11/22 08:03 RDW Coeff of Sunny 14.2 % (11.5-14.5) 08/11/22 08:03 Plt Count 152 K/uL (130-400) 08/11/22 08:03 MPV 11.7 fL (9.4-12.4) 08/11/22 08:03 Immature Gran % (Auto) 0.3 % 08/10/22 12:10 Neut % (Auto) 85.1 % 08/10/22 12:10 Lymph % (Auto) 6.2 % 08/10/22 12:10 [place] % (Auto) 8.3 % 08/10/22 12:10 Eos % (Auto) 0.0 % 08/10/22 12:10 Baso % (Auto) 0.1 % 08/10/22 12:10 Neut # (Auto) 7.57 K/uL (1.40-6.50) H 08/10/22 12:10 Lymph # (Auto) 0.55 K/uL (1.2-3.4) L 08/10/22 12:10 [place] # (Auto) 0.74 K/uL (0.11-0.59) H 08/10/22 12:10 Eos # (Auto) 0.00 K/uL (0-0.50) 08/10/22 12:10 Baso # (Auto) 0.01 K/uL (0-0.2) 08/10/22 12:10 Immature Gran # (Auto) 0.03 K/uL (0.01-0.20) 08/10/22 12:10 PT 11.3 Seconds (9.0-12.0) 08/10/22 12:10 INR 1.0 (0.9-1.1) 08/10/22 12:10 APTT 31.3 Seconds (21.0-31.0) H 08/10/22 12:10 PTT Ratio 1.1 08/10/22 12:10 Sodium 138 mmol/L (136-145) 08/10/22 12:10 Potassium 3.8 mmol/L (3.5-5.1) 08/10/22 12:10 Chloride 108 mmol/L (98-107) H 08/10/22 12:10 Carbon Dioxide 26 mmol/L (21-32) 08/10/22 12:10 Anion Gap 4 (3-11) 08/10/22 12:10 BUN 16 mg/dl (6-23) 08/10/22 12:10 Creatinine 1.01 mg/dl (0.6-1.2) 08/10/22 12:10 Est Cr Clr Drug Dosing 68.0 ml/min 08/10/22 12:10 Est GFR ( Amer) 66.7 ml/min 08/10/22 12:10 Est GFR (Non-Af Amer) 57.6 ml/min 08/10/22 12:10 BUN/Creatinine Ratio 15.8 (10-20) 08/10/22 12:10 Glucose 122 mg/dl (70-99(Fasting)) H 08/10/22 12:10 POC Glucose 114 mg/dl (70-99) H 08/11/22 07:03 Estimat Average Glucose 117 mg/dl 08/11/22 08:03 Hemoglobin A1c 5.7 % (4.5-5.6) H 08/11/22 08:03 Calcium 8.6 mg/dl (8.6-10.3) 08/10/22 12:10 Urine Color Yellow 08/10/22 13:33 Urine Appearance Clear (Clear) 08/10/22 13:33 Urine pH 6.0 (4.5-7.5) 08/10/22 13:33 Ur Specific [place] 1.020 (1.000-1.030) 08/10/22 13:33 Urine Protein Negative (Negative) 08/10/22 13:33 Urine Glucose (UA) Negative (Negative) 08/10/22 13:33 Urine Ketones Trace (Negative) H 08/10/22 13:33 Urine Blood Negative (Negative) 08/10/22 13:33 Urine Nitrite Negative (Negative) 08/10/22 13:33 Urine Bilirubin Negative (Negative) 08/10/22 13:33 Urine Urobilinogen Negative (Negative) 08/10/22 13:33 Ur Leukocyte Esterase Negative (Negative) 08/10/22 13:33 SARS-CoV-2, RNA, NAAT NEGATIVE (NEGATIVE) 08/10/22 13:33 Blood Type A Positive 08/10/22 17:11 Antibody Screen NEGATIVE 08/10/22 17:11 Impressions Femur X-Ray 08/10/22 11:13 XR pelvis 1-2V routine, XR femur RT 2V routine HISTORY: 67 years-old Female fall acute pelvic pain status post fall COMPARISON: None TECHNIQUE: AP view of the pelvis with 2 views of the right femur FINDINGS: PELVIS: Moderate left hip osteoarthritis. Right hip arthroplasty with acute periprosthetic fracture. Moderate soft tissue swelling of the right hip and gluteal tissues. No acute pelvic ring fracture identified. FEMUR: Right hip arthroplasty. There is an acute periprosthetic fracture with fracture extending inferiorly into the proximal diaphyseal region demonstrating cortical offset/displacement of 4 mm. Greater short enteric fracture fragment is displaced several centimeters superiorly with mild comminution. Fracture fragment displaced anteriorly 4.6 L. Moderate soft tissue swelling of the right thigh. Lateral skin deyanira. IMPRESSION: Right hip arthroplasty with acute and displaced periprosthetic proximal femoral fracture. ACT 112: Negative or not required by law. The above report was generated using voice recognition software. It may contain grammatical, syntax or spelling errors. Pelvis X-Ray 08/10/22 11:13 XR pelvis 1-2V routine, XR femur RT 2V routine HISTORY: 67 years-old Female fall acute pelvic pain status post fall COMPARISON: None TECHNIQUE: AP view of the pelvis with 2 views of the right femur FINDINGS: PELVIS: Moderate left hip osteoarthritis. Right hip arthroplasty with acute periprosthetic fracture. Moderate soft tissue swelling of the right hip and gluteal tissues. No acute pelvic ring fracture identified. FEMUR: Right hip arthroplasty. There is an acute periprosthetic fracture with fracture extending inferiorly into the proximal diaphyseal region demonstrating cortical offset/displacement of 4 mm. Greater short enteric fracture fragment is displaced several centimeters superiorly with mild comminution. Fracture fragment displaced anteriorly 4.6 L. Moderate soft tissue swelling of the right thigh. Lateral skin deyanira. IMPRESSION: Right hip arthroplasty with acute and displaced periprosthetic proximal femoral fracture. ACT 112: Negative or not required by law. The above report was generated using voice recognition software. It may contain grammatical, syntax or spelling errors. Electronically signed by: Buddy Rod M.D. 08/10/2022 12:02 PM
[2022-08-11 10:05] LABS: BUN Creatinine Ratio 18.3 (10-20); Calcium 8.6 mg/dl (8.6-10.3); Est GFR (African American) 60.8 ml/min; Est GFR (Non-African American) 52.5 ml/min; Potassium 4.1 mmol/L (3.5-5.1)
--- NOTE | 2022-08-11 10:26 | Hospitalist Progress Note ---
Date of Service August 11, 2022 Assessment & Plan (1) Periprosthetic fracture around internal prosthetic right hip joint: (2) Diabetes mellitus, type II: (3) Hyperlipidemia: (4) HTN (hypertension): (5) Anxiety and depression: (6) Breast cancer: (7) IBS (irritable bowel syndrome): Plan This is a 67yo F with PMH of HTN, DM II, HLD, mood disorder, h/o breast cancer s/p partial mastectomy and other medical problems listed below who is postop day 1 status post total right hip replacement by Dr. Krishnamurthy performed at outpatient surgery center in [place] yesterday presenting with right hip pain after fall. Acute periprosthetic fracture POD#2 s/p total R ESTUARDO by Dr. 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 If not already performed, an ultrasound-guided fine-needle aspiration is recommended DVT Ppx: SCD on LLE PCP: Gisselle Mathews ([place]) Dispo: Admitted to med/surg Patient seen in collaboration with Dr. Hussein. Please see addendum. I spent a total of 50 minutes coordinating, documenting, and providing care for this patient excluding time spent in the performance of separately billed services. Admission and Anticipated Discharge Date Admission Date: August 10, 2022 Supervising Physician Co-Signing Physician Notes Patient seen and examined at bedside as a follow-up of acute periprosthetic fracture, who is POD 2 status post total right ESTUARDO by Dr. Krishnamurthy. Patient with fairly bearable pain with pain medications, pain comes quickly back with wearing of of pain medication. N.p.o. midnight for surgery tomorrow. On examination, patient on room air, watching television, right hip with deyanira noted, no signs of infection or drainage noted. Rest of the examination as above. I have seen and examined the patient and have discussed the case with the provider above. I agree with the assessment and plan as stated. Subjective Patient was seen and examined in room 310. Follow-up right periprosthetic femur fracture. She states that she cannot appropriately. She continues to have a feeling of her right leg and denies any numbness or tingling. She denies fever, chills, sweats, lightheadedness, dizziness, chest pain, shortness breath, nausea, vomiting, abdominal pain. Review of Systems Review of Systems: All systems reviewed & are unremarkable except as noted in HPI & below Physical Exam Physical Exam: Gen: WD/WN, NAD, A&O x3 HEENT: Normocephalic, atraumatic, conjunctivae moist, sclerae anicteric, mucous membranes moist. Lung: Clear to Auscultation bilaterally, no wheezes/rales/rhonchi Heart: Regular rate, regular rhythm, no murmurs, rubs, or gallops Abdomen: Obese abdomen, soft, NT, ND +BS x 4 Extremities: Trace right lower extremity edema, dressing to right proximal lateral thigh clean dry and intact, right lower extremity neurovascular intact distal Skin: Warm, no rash, negative turgor. Results & Data Results & Data Vital Signs (Past 12 Hours) Vital Signs Temp Pulse Pulse Resp BP Pulse Ox O2 Del Method 08/11/22 08:00 Room Air 08/11/22 07:55 36.6 C 79 16 107/68 96 Room Air 08/11/22 07:46 36.8 C 79 16 106/63 97 Room Air 08/11/22 03:13 36.6 C 84 16 120/60 93 Room Air Laboratory Results Short CBC 08/10/22 08/11/22 Range/Units 12:10 08:03 WBC 8.90 5.30 (4.8-10.8) K/ul Hgb 10.0 L 9.1 L (12.0-16.0) g/dl Hct 31.2 L 28.7 L (37.0-47.0) % Plt Count 179 152 (130-400) K/uL BMP 08/10/22 08/11/22 12:10 08:03 Sodium 138 138 Potassium 3.8 4.1 Chloride 108 H 108 H Carbon Dioxide 26 26 BUN 16 20 Creatinine 1.01 1.09 Glucose 122 H 94 Calcium 8.6 8.6 Urine 08/10/22 Range/Units 13:33 Urine Color Yellow Urine Appearance Clear (Clear) Urine pH 6.0 (4.5-7.5) Ur Specific [place] 1.020 (1.000-1.030) Urine Protein Negative (Negative) Urine Glucose (UA) Negative (Negative) Medications Administered Current Inpatient Medications Acetaminophen (Acetaminophen 500 Mg Tab) 1,000 mg PO Q8H [facility] Stop: 09/09/22 16:59 Last Admin: 08/11/22 07:16 Dose: 1,000 mg Amlodipine Besylate (Amlodipine Besylate 5 Mg Tab) 5 mg PO DAILY [facility]1983 Stop: 09/10/22 08:59 Last Admin: 08/11/22 07:18 Dose: Not Given Bisacodyl (Bisacodyl 10 Mg Supp) 10 mg GA DAILY PRN PRN Reason: Constipation Stop: 09/09/22 16:45 Buspirone HCl (Buspirone 7.5 Mg Tab) 7.5 mg PO TID [facility]1983 Stop: 09/09/22 17:29 Last Admin: 08/11/22 07:17 Dose: 7.5 mg Dextrose (Dextrose 50% 50 Ml Syringe) 25 - 50 ml IV UD PRN; Protocol PRN Reason: Hypoglycemia Protocol Stop: 09/09/22 16:45 Dicyclomine HCl (Dicyclomine Hcl 10 Mg Cap) 10 mg PO QID PRN PRN Reason: Abdominal Pain Stop: 09/09/22 16:45 Fluoxetine HCl (Fluoxetine Hcl 20 Mg Cap) 60 mg PO QAM [facility]1983 Stop: 09/09/22 17:29 Last Admin: 08/11/22 07:17 Dose: 60 mg Glucagon (Glucagon For Inj 1 Mg Vial) 1 mg SQ UD PRN; Protocol PRN Reason: Hypoglycemia Protocol Stop: 09/09/22 16:45 Glucose (Glucose 10 Tab/Tube) 4 - 8 tab PO UD PRN; Protocol PRN Reason: Hypoglycemia Treatment Stop: 09/09/22 16:45 Glucose (Glucose 40% Gel 15 Gm Tube) 15 - 30 gm PO UD PRN; Protocol PRN Reason: Hypoglycemia Protocol Stop: 09/09/22 16:45 Cefazolin Sodium (Ancef 2000mg) 2,000 mg in 15 mls @ 3.75 mls/min IV PREOP BARB; Protocol Stop: 08/12/22 05:59 Insulin Aspart (Insulin Aspart Per Unit Charge) 0 units SC ACHS [facility] Stop: 09/09/22 16:45 Last Admin: 08/11/22 07:05 Dose: Not Given Lactobacillus Acidophilus (Advanced Probiotic 1250 Mg Capsule) 2 cap PO DAILY BARB Stop: 09/10/22 08:59 Last Admin: 08/11/22 07:18 Dose: Not Given Magnesium Hydroxide (Magnesium Hydroxide Susp 30 Ml Udc) 30 ml PO DAILY PRN PRN Reason: Constipation Stop: 09/09/22 16:45 Meclizine HCl (Meclizine Hcl 25 Mg Tab) 25 mg PO TID PRN PRN Reason: Dizziness Stop: 09/09/22 17:06 Miscellaneous (Carbohydrates For Hypoglycemia ) 15 - 30 gm PO UD PRN PRN Reason: Hypoglycemia Protocol Stop: 09/09/22 16:45 Morphine Sulfate (Morphine Sulfate 4 Mg/Ml 1 Ml Carp\Vial) 4 mg IV Q4H PRN PRN Reason: Severe Pain (Scale 7, 8, 9,10) Stop: 08/24/22 16:45 Last Admin: 08/11/22 07:21 Dose: 4 mg Multivitamins (Multivitamin Tab) 1 tab PO DAILY [facility] Stop: 09/10/22 08:59 Last Admin: 08/11/22 07:17 Dose: Not Given Naloxone HCl (Naloxone Hcl 0.4 Mg/1 Ml Vial/Carp) 0.1 mg IV UD PRN PRN Reason: Opiate Overdose Stop: 09/09/22 16:45 Ondansetron HCl (Ondansetron Inj 2 Mg/Ml 2 Ml Vial) 4 mg IV Q6H PRN PRN Reason: Nausea Stop: 09/09/22 16:45 Pantoprazole Sodium (Pantoprazole 40 Mg Tab) 40 mg PO DAILY PRN PRN Reason: Acid Reflux Stop: 09/09/22 16:45 Polyethylene Glycol (Polyethylene (Miralax) 17 Gm Pack) 17 gm PO DAILY PRN PRN Reason: Constipation Stop: 09/09/22 16:45 Senna/Docusate Sodium (Docusate Sodium/Senna 50/8.6mg Tab) 2 tab PO HS [facility]1983 Stop: 09/09/22 20:59 Last Admin: 08/10/22 19:57 Dose: 2 tab Simvastatin (Simvastatin 20 Mg Tab) 20 mg PO [facility] Stop: 09/09/22 20:59 Last Admin: 08/10/22 19:56 Dose: 20 mg
[2022-08-11] MEDS: oxyCODONE HCL IR 5 MG TAB (IMMEDIATE RELEASE) PO PRN ×2 (16:47→21:01)
[2022-08-11] MEDS: DOCUSATE SODIUM/SENNA 50/8.6MG TAB PO SCH (20:58)
[2022-08-11] MEDS: SIMVASTATIN 20 MG TAB PO SCH (20:59)
[2022-08-12] MEDS: ACETAMINOPHEN 500 MG TAB PO SCH ×4 (00:16→23:12)
[2022-08-12] MEDS: MoRPHine SULFATE 4 MG/ML 1 ML CARP\\VIAL IV PRN ×3 (00:17→12:16)
[2022-08-12] MEDS ORDERED: Nursing to Pharmacy Communication SCH (01:30)
[2022-08-12 06:04] LABS: Hematocrit (blood only) 27.2 % (37.0-47.0); Hemoglobin 8.8 g/dl (12.0-16.0); Mean Corpuscular Hemoglobin 29.7 pg (25.0-34.0); Mean Corpuscular Hgb Conc 32.4 g/dL (32.0-36.0); Mean Corpuscular Volume 91.9 fL (80.0-100.0); Mean Platelet Volume 11.4 fL (9.4-12.4); Platelet Count 145 K/uL (130-400); RDW Coefficient of Variation 14.1 % (11.5-14.5); RDW Standard Deviation 47.8 fL (36.4-46.3); Red Blood Count 2.96 M/uL (4.20-5.40); White Blood Count 4.99 K/ul (4.8-10.8)
[2022-08-12] MEDS: INSULIN ASPART PER UNIT CHARGE SC SCH ×3 (06:08→17:23)
[2022-08-12 06:18] LABS: BUN Creatinine Ratio 18.7 (10-20); Calcium 8.3 mg/dl (8.6-10.3); Creatinine Clr Calc Pharmacy 75.5 ml/min; Est GFR (African American) 75.7 ml/min; Est GFR (Non-African American) 65.3 ml/min; Potassium 4.2 mmol/L (3.5-5.1)
[2022-08-12] MEDS: ADVANCED PROBIOTIC 1250 MG CAPSULE PO SCH (07:26)
[2022-08-12] MEDS: FLUoxetine HCL 20 MG CAP PO SCH (07:26)
[2022-08-12] MEDS: MULTIVITAMIN TAB PO SCH (07:27)
[2022-08-12] MEDS: POLYETHYLENE (MIRALAX) 17 GM PACK PO SCH (07:28)
[2022-08-12] MEDS: busPIRone 7.5 MG TAB PO SCH ×2 (07:28→15:56)
--- NOTE | 2022-08-12 14:49 | History & Physical Bridge Note ---
Date of Service August 12, 2022 History & Physical Bridge Note I have examined the patient, reviewed the History & Physical and in the interval since the performance of the History & Physical I have noted the following changes of clinical significance: no changes noted. Pt S+E, had lengthy discussion regarding revision right total hip arthroplasty with femur ORIF. After reviewing risks/benefits pt has elected to proceed with surgical intervention and written consent was obtained.
[2022-08-12] MEDS ORDERED: BUPIVACAINE/EPINEPHRINE 0.5% MPF 1:200,000 10 ML VIAL ONE (15:50)
[2022-08-12] MEDS ORDERED: MIDAZOLAM HCL 1 MG/ML 2ML VIAL ONE (15:58)
[2022-08-12] MEDS ORDERED: fentaNYL citrate PF 100 MCG/2 ML VIAL ONE (15:58)
--- NOTE | 2022-08-12 15:59 | Hospitalist Progress Note ---
Date of Service August 12, 2022 Assessment & Plan (1) Periprosthetic fracture around internal prosthetic right hip joint: (2) Diabetes mellitus, type II: (3) Hyperlipidemia: (4) HTN (hypertension): (5) Anxiety and depression: (6) Breast cancer: (7) IBS (irritable bowel syndrome): Plan This is a 67yo F with PMH of HTN, DM II, HLD, mood disorder, h/o breast cancer s/p partial mastectomy and other medical problems listed below who is postop day 1 status post total right hip replacement by Dr. Krishnamurthy performed at outpatient surgery center in [place] 08/10 presenting with right hip pain after fall. Acute periprosthetic fracture POD#3 s/p total R ESTUARDO by Dr. 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 Pt is optimized from medical standpoint DM II A1c 5.7 Hold home agents SSI while in-patient BSG stable HTN On low side hold amlodipine and lisinopril for now, resume when able Anxiety and depression Continue Buspar, Prozac mood stable H/o breast cancer S/p partial mastectomy in 2011 IBS Bentyl PRN Thyroid gland nodule Incidental finding of 4 cm nodule/lesion arising from the right lobe of the thyroid gland. If not already performed, an ultrasound-guided fine-needle aspiration is recommended DVT Ppx: SCD on LLE PCP: Gisselle Mathews ([place]) Dispo: Admitted to med/surg Admission and Anticipated Discharge Date Admission Date: August 10, 2022 Subjective Patient was seen and examined in room 310. Follow-up right periprosthetic femur fracture. Patient was lying in bed, on room air, NAD, reports right hip pain with minimal movement, pain bearable with pain medications. She denies fever, chills, sweats, lightheadedness, dizziness, chest pain, shortness breath, nausea, vomiting, abdominal pain. Results & Data Results & Data Vital Signs (Past 12 Hours) Vital Signs Temp Pulse Pulse Resp BP Pulse Ox O2 Del Method 08/12/22 15:45 37.5 C 90 15 131/63 97 Room Air 08/12/22 14:44 36.7 C 88 18 143/67 H 95 Room Air
[2022-08-12] MEDS ORDERED: fentaNYL citrate PF 100 MCG/2 ML VIAL IV PRN (16:17)
[2022-08-12] MEDS ORDERED: ATROPINE SULFATE 0.1 MG/ML 10ML SYR IV PRN (16:17)
[2022-08-12] MEDS ORDERED: ONDANSETRON INJ 2 MG/ML 2 ML VIAL IV PRN (16:17)
[2022-08-12] MEDS ORDERED: ePHEDrine sulfate 50 MG/ML AMP IV PRN (16:17)
[2022-08-12] MEDS ORDERED: HYDROmorphone INJ 2 MG/ML SYR/VIAL IV PRN (16:17)
[2022-08-12] MEDS ORDERED: ceFAZolin 2,000 MG/15 ML IV PUSH IV ONE (16:19)
--- NOTE | 2022-08-12 17:35 | Communication Note ---
Date of Service: August 12, 2022 called by jack setter because the patient's IVs had infiltrated. two attempts had been made to place IVs without success. pt is positioned in the left lateral pos ition making placement difficult. Pt had been without an IV for ~15 mins with a high risk for blood loss surgery. a large AC vein was visible on the limb restricted side. I decided for patient safety that she need an IV. I placed a 20 gauge x 1 attempt in the ac. It is secured with good blood return. I spoke with jack setter and pacu. They will replace the IV at completion of surgery.
[2022-08-12] MEDS ORDERED: ONDANSETRON INJ 2 MG/ML 2 ML VIAL ONE (17:48)
[2022-08-12] MEDS ORDERED: PROPOFOL IV EMULSION 10 MG/ML 20 ML VIAL IV ONE (17:48)
[2022-08-12] MEDS ORDERED: DEXAMETHASONE SOD INJ 4 MG/ML VIAL ONE (17:48)
[2022-08-12] MEDS ORDERED: LIDOCAINE 2% 2 ML VIAL/AMP(20MG/ML) INFIL ONE (17:48)
[2022-08-12] MEDS ORDERED: GLYCOPYRROLATE 0.2 MG/ML VIAL ONE ×2 (17:48→19:46)
[2022-08-12] MEDS ORDERED: diphenhydrAMINE 50 MG/ML VIAL ONE (17:49)
[2022-08-12] MEDS ORDERED: HYDROmorphone INJ 2 MG/ML SYR/VIAL ONE (17:49)
[2022-08-12] MEDS ORDERED: ROCURONIUM BROMIDE 10 MG/ML 5 ML VIAL IV ONE (18:02)
--- NOTE | 2022-08-12 18:54 | XRay Report ---
XR hip RT 1V CLINICAL HISTORY: INTRA-OPERATIVE IMAGES DURING TOTAL RIGHT HIP REPLACEMENT COMPARISON STUDY: Right femur 08/10/2022. FINDINGS: 2 intraoperative crosstable lateral views of the right hip are similar for review. There is replacement of a long stemmed right total hip arthroplasty. Retractors are noted. Cerclage wires are in place within the proximal femur traversing the periprosthetic fracture. This is partially obscure d by the overlying retractors. The hardware appears intact. IMPRESSION: Intraoperative images for replacement of a long stemmed right total hip arthroplasty as above. ACT 112: Negative or not required by law. Electronically signed by: Ryan Colorado M.D. 08/12/2022 6:53 PM
[2022-08-12] MEDS ORDERED: ePHEDrine sulfate 50 MG/ML AMP ONE (18:57)
[2022-08-12] MEDS ORDERED: NEOSTIGMINE METHYLSULFATE 1 MG/ML 10ML VIAL ONE (19:46)
--- NOTE | 2022-08-12 19:57 | Post Operative Brief Note ---
Immediate Post Op Note v1 Date of Surgery August 12, 2022 Pre & Post Diagnosis Operation Date: 08/12/22 07:00 Pre-Op Diagnosis: Periprosthetic Hip Fracture Post-Op Diagnosis: Periprosthetic Hip Fracture I identified the patient and participated in the time-out.: Yes Procedure Operation Date: 08/12/22 07:00 Actual Procedures p Right Revision Total Hip Arthroplasty, Open Reduction Internal Fixation(Right) - Buddy Krishnamurthy DO Surgeon Buddy Krishnamurthy DO Environmental Studies Faculty Member Fidel Natarajan PA-C Estimated Blood Loss 500 Findings Consistent with Post-Op Diagnosis See dictation Drains Lang Catheter Complications None
--- NOTE | 2022-08-12 20:10 | Operative Report ---
Post Operative Report Pre & Post Diagnosis Operation Date: 08/12/22 07:00 Pre-Op Diagnosis: Periprosthetic Hip Fracture Post-Op Diagnosis: Periprosthetic Hip Fracture I identified the patient and participated in the time-out.: Yes Procedure Operation Date: 08/12/22 07:00 Actual Procedures p Right Revision Total Hip Arthroplasty, Open Reduction Internal Fixation(Right) - Buddy Krishnamurthy DO Surgeon Buddy Krishnamurthy DO Human Resources Benefits Specialist Fidel Natarajan PA-C Estimated Blood Loss 500 Findings Consistent with Post-Op Diagnosis See dictation Specimens None Anesthesia Type General Complications None Indications 67-year-old female who had underwent total hip arthroplasty earlier this week presenting to [facility] emergency department after trying to get in bed and twisting her leg resulting in a pop. She noted immediate pain and inability to ambulate. In the emergency department radiographs were obtained demonstrating a displaced periprosthetic right proximal femur fracture with gross subsidence of the femoral component. She was admitted to medical service and orthopedics was consulted for operative management. Preoperatively I met with the patient and we had a lengthy discussion regarding risk benefits potential complications of revision right total hip arthroplasty with open reduction internal fixation of her femoral component. These risks include but are not limited to: Infection, neurovascular injury, DVT, nonunion, malunion, leg length discrepancy, dislocation and need for future surgery. After reviewing these she elected to proceed with surgical intervention and written consent was obtained Description of Procedure Implants: [place] yazdanism modular hip distal stem 155 mm x 15 mm, 19 mm +10 proximal body, Biolox delta ceramic femoral head 32 mm outside diameter -4 mm offset, Dall-Miles trochanteric boots and shoes supervisor plate size medium 100 mm, Dall-Seevibes 2.0 mm beaded cables (x3), Synthes 1.7 mm cable with crimp. Procedure: Due to the patient's large size and morbid obesity there was significant increase in surgical time and complexity including: Patient positioning, draping, surgical exposure, retraction, the procedure itself in addition to surgical closure. This led to a greater than 25% increase in total operative time. Patient was appropriately marked and identified in the preoperative holding area. She was then taken back to the operative suite where she received general anesthesia. She was positioned in the lateral decubitus position with the right hip facing upwards. Edwards were removed from her incision. She was then prepped and draped in the standard orthopedic fashion. Timeout was then performed. Previous incision was then opened using a scalpel and extended distally over the lateral aspect of the femur. Electrocautery was used to dissect through the subcutaneous tissue down to the IT band and gluteal fascia. Fascia was then split in line with the previous incision and extended distally. Large fracture hematoma was encountered. Charnley retractor was then placed as well as Mariam retractors. There was noted be gross subsidence of the femoral stem within the femoral canal. Attention was first turned to removal of the femoral stem. Using a saddle impactor the ball was removed from the trunnion. Then a set of pliers and mallet was used to remove the femoral stem. Attention was then turned to reduction of the fracture. There was a large medial spike that involve the calcar. 3 preliminary Dall-Miles cables were placed. One distal to the fracture site and 2 around the fracture fragment. Using a combination of traction rotation and a bone hook the fracture fragment was able to reduce the reduced to a satisfactory position. Dall-Seevibes cables were then provisionally tightened. Attention was then turned to preparation of the femoral canal. Starting with a size 12 mm reamer the canal was sequentially reamed up to a size 15 mm reamer just past the 225 mm depth. A 15 mm x 155 mm distal conical stem was then inserted. Proximal body was then overreamed to 19 mm. A trial +10 proximal body was then attached and anteversion was dialed in based off of previous position of the calcar. A 32 mm -4 offset femoral head was then attached and the hip was successfully relocated. Leg lengths were noted to be satisfactory. Stability was also noted to be satisfactory. Radiographs were obtained which demonstrated satisfactory position of the implant and reduction of the fracture. At this point the hip was successfully dislocated. Trial head and proximal body were then removed anteversion was then marked. A 19 mm +10 proximal body was then inserted and torqued into position based on previous anteversion. Trunnion was then irrigated and dried and a 32 mm -4 offset femoral head was then impacted onto the trunnion with several brisk taps. The hip was then successfully relocated. Once again range of motion and stability were assessed and noted to be satisfactory. Due to the patient having a trochanter fracture decision was made to place 100 mm medium Dall-Miles trochanteric boots and shoes supervisor plate. Another Synthes cable was passed around the femur below the level of the lesser trochanter and was passed through the plate and was tightened and then crimped. All tails were then cut off the cables. A #5 FiberWire was then passed through the top of the abductor complex and trochanter and tied down to the proximal aspect of the plate. Final radiographs were then obtained. Wounds were then copiously irrigated using dilute Betadine solution followed by normal saline solution. Retractors were then removed. IT band gluteal fascia was closed using combination of 1-0 Ethibond suture followed by a running oh V-Loc suture. Subcutaneous tissues were then copiously irrigated and a 10 looped PDS was used to close the deep subcutaneous tissues followed by a running 2-0 STRATAFIX suture to close the subcutaneous tissue followed by deyanira for the skin. A Prevena dressing was then placed. The patient tolerated the procedure well and was taken to the recovery room in hemodynamically stable condition. Fidel Natarajan PA-C was present due to the complexity of the case. He was present for the duration of the case and assisted in: Patient positioning, draping, soft tissue exposure and retraction, the surgical procedure, and surgical closure under direct supervision. I attest to the content of the Intraoperative Record and any orders documented therein. Any exceptions are noted below.
--- NOTE | 2022-08-12 20:37 | Anesthesiology Progress Note ---
Date of Service August 12, 2022 Anesthesia Post Procedure Vital Signs Vital Signs: Temp Pulse Pulse Resp BP Pulse Ox O2 Del Method 08/12/22 20:20 100 H 18 123/76 98 Nasal Cannula 08/12/22 20:10 99 H 18 136/75 98 Oxymask 08/12/22 20:00 36.7 C 106 H 20 165/114 H 96 Oxymask 08/12/22 15:45 37.5 C 90 15 131/63 97 Room Air 08/12/22 14:44 36.7 C 88 18 143/67 H 95 Room Air 08/12/22 00:07 36.7 C 80 18 135/74 95 Room Air O2 Flow Rate 08/12/22 20:20 3 08/12/22 20:10 3 08/12/22 20:00 6 08/12/22 15:45 08/12/22 14:44 08/12/22 00:07 Pain Intensity Right Hip: Pain Intensity: 3 Transfer of Care Handoff Completed per policy Notes Mental Status: alert / awake / arousable and participated in evaluation Patient Amnestic to Procedure: Yes Nausea / Vomiting: adequately controlled Pain: adequately controlled Airway Patency, RR, SpO2: stable & adequate BP & HR: stable & adequate Hydration State: stable & adequate Anesthetic Complications: no major complications apparent
[2022-08-12] MEDS ORDERED: diphenhydrAMINE 50 MG/ML VIAL IV PRN (20:46)
[2022-08-12] MEDS ORDERED: SODIUM CHLORIDE 0.9% 1000ML 1,000 ML IV SCH (20:46)
[2022-08-12] MEDS: DOCUSATE SODIUM/SENNA 50/8.6MG TAB PO SCH (20:50)
[2022-08-12] MEDS ORDERED: DOCUSATE SODIUM 100 MG CAP PO SCH (21:00)
[2022-08-12] MEDS: CHOLECALCIFEROL 1,000 UNITS 25 MCG TAB PO SCH (23:11)
[2022-08-12] MEDS: SIMVASTATIN 20 MG TAB PO SCH (23:12)
[2022-08-13] MEDS: INSULIN ASPART PER UNIT CHARGE SC SCH ×5 (00:36→21:23)
[2022-08-13] MEDS: busPIRone 7.5 MG TAB PO SCH ×4 (01:33→21:26)
[2022-08-13] MEDS ORDERED: Nursing to Pharmacy Communication SCH (01:45)
[2022-08-13] MEDS: ceFAZolin 2000MG 2,000 MG/15 ML SYR IV SCH ×2 (02:13→09:55)
[2022-08-13] MEDS: oxyCODONE HCL IR 5 MG TAB (IMMEDIATE RELEASE) PO PRN ×3 (05:48→21:25)
[2022-08-13 06:09] LABS: Hematocrit (blood only) 23.4 % (37.0-47.0); Hemoglobin 7.6 g/dl (12.0-16.0); Immature Granulocytes # (auto) 0.03 K/uL (0.01-0.20); Immature Granulocytes % (auto) 0.5 %; Lymphocytes # (auto) 0.49 K/uL (1.2-3.4); Lymphocytes % (auto) 7.6 %; Mean Corpuscular Hgb Conc 32.5 g/dL (32.0-36.0); Mean Corpuscular Volume 89.3 fL (80.0-100.0); Mean Platelet Volume 11.5 fL (9.4-12.4); Monocytes % (auto) 9.3 %; Neutrophils # (auto) 5.34 K/uL (1.40-6.50); Neutrophils % (auto) 82.6 %; Platelet Count 193 K/uL (130-400); RDW Coefficient of Variation 13.8 % (11.5-14.5); RDW Standard Deviation 45.7 fL (36.4-46.3); Red Blood Count 2.62 M/uL (4.20-5.40); White Blood Count 6.46 K/ul (4.8-10.8)
[2022-08-13 06:23] LABS: BUN Creatinine Ratio 23.3 (10-20); Calcium 8.1 mg/dl (8.6-10.3); Creatinine Clr Calc Pharmacy 94.1 ml/min; Est GFR (African American) 98.8 ml/min; Est GFR (Non-African American) 85.2 ml/min; Magnesium 1.6 mg/dl (1.7-2.4); Potassium 4.3 mmol/L (3.5-5.1)
[2022-08-13] MEDS ORDERED: LORazepam 0.5 MG TAB PO STA (06:44)
[2022-08-13 06:49] LABS: Polychromasia 1+
[2022-08-13] MEDS: POLYETHYLENE (MIRALAX) 17 GM PACK PO SCH (07:18)
--- NOTE | 2022-08-13 08:11 | XRay Report ---
XR hip 1V RT w pelvis CLINICAL HISTORY: Postoperative evaluation. COMPARISON: Right femur radiographs August 10, 2022. FINDINGS: There are postoperative findings consistent with revision right hip arthroplasty. Hardware is intact. Open reduction and internal fixation of the periprosthetic fracture is noted with lateral plate and cerclage wires. There are skin deyanira. There are no unexpected radiopaque foreign bodies. Fracture alignment is near anatomic. IMPRESSION: Postoperative radiographs demonstrating right hip revision arthroplasty and internal fixa tion of the periprosthetic fracture. ACT 112: Negative or not required by law. Electronically signed by: Orlando Lopez M.D. 08/13/2022 8:10 AM
--- NOTE | 2022-08-13 08:20 | XRay Report ---
XR hip RT 1V CLINICAL HISTORY: FLAT PLATE RIGHT HIP IN OR COMPARISON STUDY: Right hip 08/12/2022. FINDINGS: Intraoperative studies demonstrate revision of a longstem right total hip arthroplasty with cerclage wires traversing the periprosthetic fracture. The hardware appears intact. Alignment appear s near-anatomic. IMPRESSION: Intraoperative studies as above. ACT 112: Negative or not required by law. Electronically signed by: Ryan Colorado M.D. 08/13/2022 8:18 AM
[2022-08-13] MEDS: MULTIVITAMIN TAB PO SCH (08:29)
[2022-08-13] MEDS: CHOLECALCIFEROL 1,000 UNITS 25 MCG TAB PO SCH ×2 (08:29→21:26)
[2022-08-13] MEDS: ADVANCED PROBIOTIC 1250 MG CAPSULE PO SCH (08:29)
[2022-08-13] MEDS: FLUoxetine HCL 20 MG CAP PO SCH (08:29)
[2022-08-13] MEDS: ACETAMINOPHEN 500 MG TAB PO SCH ×2 (08:29→15:54)
[2022-08-13] MEDS ORDERED: MULTIVITAMIN TAB PO SCH (09:00)
[2022-08-13] MEDS: MoRPHine SULFATE 4 MG/ML 1 ML CARP\\VIAL IV PRN (09:27)
--- NOTE | 2022-08-13 11:08 | Orthopedic Progress Note ---
Date of Service August 13, 2022 Assessment & Plan (1) Periprosthetic fracture around internal prosthetic right hip joint: Plan: Postop day 1 status post revision right ESTUARDO with ORIF of periprosthetic femur fracture. PT/OT protocols. Toe-touch weightbearing right lower extremity. No abduction exercises. DVT prophylaxis-apixaban 2.5 mg p.o. twice daily, SCDs, WILLY hose. Pain management-oxycodone 5-10 mg p.o. every 4 hours as needed, hydromorphone 25 mg p.o. every 3 hours as needed, Toradol 15 mg every 6 hours as needed x24 hours, acetaminophen 1000 mg p.o. every 8 hours. Acute Blood Loss Anemia - transfuse as per Med Service (Hgb 10 on admit) DC planning-[facility] care home facility. Admission and Anticipated Discharge Date Admission Date: August 10, 2022 Subjective Postop day 1 Patient lying in bed. She appears uncomfortable. She states that she is having moderate pain. She apparently has just finished up her occupational therapy prior to being medicated. She has just had 2 tablets of oxycodone. We discussed other IV pain medications that have been ordered that we would give to her. No other complaints at this time. Physical Exam Physical Exam: Dressing is clean, dry, and intact. No noted erythema around the dressing. Calves are soft nontender. Abduction pillow is in place. Neurovascular appears intact. Leg lengths appear equal. Results & Data Vital Signs (Past 12 Hours) Vital Signs Temp Pulse Resp BP Pulse Ox O2 Del Method 08/13/22 07:02 36.6 C 93 H 18 120/69 97 Room Air 08/13/22 05:53 106 H 08/13/22 05:49 36.9 C 111 H 18 113/72 94 Room Air 08/13/22 02:14 36.8 C 88 17 136/82 96 Room Air 08/13/22 00:50 36.6 C 89 16 101/65 96 Room Air Laboratory Results Laboratory Results WBC 6.46 K/ul (4.8-10.8) 08/13/22 05:36 RBC 2.62 M/uL (4.20-5.40) L 08/13/22 05:36 Hgb 7.6 g/dl (12.0-16.0) L 08/13/22 05:36 Hct 23.4 % (37.0-47.0) L 08/13/22 05:36 MCV 89.3 fL (80.0-100.0) 08/13/22 05:36 MCH 29.0 pg (25.0-34.0) 08/13/22 05:36 MCHC 32.5 g/dL (32.0-36.0) 08/13/22 05:36 RDW Std Deviation 45.7 fL (36.4-46.3) 08/13/22 05:36 RDW Coeff of Sunny 13.8 % (11.5-14.5) 08/13/22 05:36 Plt Count 193 K/uL (130-400) 08/13/22 05:36 MPV 11.5 fL (9.4-12.4) 08/13/22 05:36 Immature Gran % (Auto) 0.5 % 08/13/22 05:36 Neut % (Auto) 82.6 % 08/13/22 05:36 Lymph % (Auto) 7.6 % 08/13/22 05:36 [place] % (Auto) 9.3 % 08/13/22 05:36 Eos % (Auto) 0.0 % 08/13/22 05:36 Baso % (Auto) 0.0 % 08/13/22 05:36 Neut # (Auto) 5.34 K/uL (1.40-6.50) 08/13/22 05:36 Lymph # (Auto) 0.49 K/uL (1.2-3.4) L 08/13/22 05:36 [place] # (Auto) 0.60 K/uL (0.11-0.59) H 08/13/22 05:36 Eos # (Auto) 0.00 K/uL (0-0.50) 08/13/22 05:36 Baso # (Auto) 0.00 K/uL (0-0.2) 08/13/22 05:36 Immature Gran # (Auto) 0.03 K/uL (0.01-0.20) 08/13/22 05:36 Polychromasia 1+ 08/13/22 05:36 PT 11.3 Seconds (9.0-12.0) 08/10/22 12:10 INR 1.0 (0.9-1.1) 08/10/22 12:10 APTT 31.3 Seconds (21.0-31.0) H 08/10/22 12:10 PTT Ratio 1.1 08/10/22 12:10 Sodium 136 mmol/L (136-145) 08/13/22 05:36 Potassium 4.3 mmol/L (3.5-5.1) 08/13/22 05:36 Chloride 106 mmol/L (98-107) 08/13/22 05:36 Carbon Dioxide 23 mmol/L (21-32) 08/13/22 05:36 Anion Gap 7 (3-11) 08/13/22 05:36 BUN 17 mg/dl (6-23) 08/13/22 05:36 Creatinine 0.73 mg/dl (0.6-1.2) 08/13/22 05:36 Est Cr Clr Drug Dosing 94.1 ml/min 08/13/22 05:36 Est GFR ( Amer) 98.8 ml/min 08/13/22 05:36 Est GFR (Non-Af Amer) 85.2 ml/min 08/13/22 05:36 BUN/Creatinine Ratio 23.3 (10-20) H 08/13/22 05:36 Glucose 119 mg/dl (70-99(Fasting)) H 08/13/22 05:36 POC Glucose 108 mg/dl (70-99) H 08/13/22 08:04 Estimat Average Glucose 117 mg/dl 08/11/22 08:03 Hemoglobin A1c 5.7 % (4.5-5.6) H 08/11/22 08:03 Calcium 8.1 mg/dl (8.6-10.3) L 08/13/22 05:36 Magnesium 1.6 mg/dl (1.7-2.4) L 08/13/22 05:36 25-OH Vitamin D Total 18.8 ng/ml (30-100) L 08/12/22 10:23 Urine Color Yellow 08/10/22 13:33 Urine Appearance Clear (Clear) 08/10/22 13:33 Urine pH 6.0 (4.5-7.5) 08/10/22 13:33 Ur Specific [place] 1.020 (1.000-1.030) 08/10/22 13:33 Urine Protein Negative (Negative) 08/10/22 13:33 Urine Glucose (UA) Negative (Negative) 08/10/22 13:33 Urine Ketones Trace (Negative) H 08/10/22 13:33 Urine Blood Negative (Negative) 08/10/22 13:33 Urine Nitrite Negative (Negative) 08/10/22 13:33 Urine Bilirubin Negative (Negative) 08/10/22 13:33 Urine Urobilinogen Negative (Negative) 08/10/22 13:33 Ur Leukocyte Esterase Negative (Negative) 08/10/22 13:33 SARS-CoV-2, RNA, NAAT NEGATIVE (NEGATIVE) 08/10/22 13:33 Blood Type A Positive 08/10/22 17:11 Blood Type Recheck A Positive 08/12/22 05:25 Antibody Screen NEGATIVE 08/10/22 17:11 Impressions Hip X-Ray 08/12/22 17:01 XR hip RT 1V CLINICAL HISTORY: INTRA-OPERATIVE IMAGES DURING TOTAL RIGHT HIP REPLACEMENT COMPARISON STUDY: Right femur 08/10/2022. FINDINGS: 2 intraoperative crosstable lateral views of the right hip are similar for review. There is replacement of a long stemmed right total hip arthroplasty. Retractors are noted. Cerclage wires are in place within the proximal femur traversing the periprosthetic fracture. This is partially obscured by the overlying retractors. The hardware appears intact. IMPRESSION: Intraoperative images for replacement of a long stemmed right total hip arthroplasty as above. ACT 112: Negative or not required by law. Electronically signed by: Ryan Colorado M.D. 08/12/2022 6:53 PM Hip/Pelvis X-Ray 08/12/22 19:32 XR hip 1V RT w pelvis CLINICAL HISTORY: Postoperative evaluation. COMPARISON: Right femur radiographs August 10, 2022. FINDINGS: There are postoperative findings consistent with revision right hip arthroplasty. Hardware is intact. Open reduction and internal fixation of the periprosthetic fracture is noted with lateral plate and cerclage wires. There are skin deyanira. There are no unexpected radiopaque foreign bodies. Fracture alignment is near anatomic. IMPRESSION: Postoperative radiographs demonstrating right hip revision arthroplasty and internal fixation of the periprosthetic fracture. ACT 112: Negative or not required by law. Electronically signed by: Orlando Lopez M.D. 08/13/2022 8:10 AM
[2022-08-13] MEDS: KETOROLAC 30 MG/ML VIAL IV PRN ×2 (11:27→19:23)
[2022-08-13] MEDS: MAGNESIUM SULFATE / D5W 1 GM/100 ML BAG IV SCH ×2 (12:12→13:49)
[2022-08-13] MEDS ORDERED: COUGH DROP (SUGAR FREE) LOZ 24 LOZ/1 BOX BUCCAL ONE (14:34)
[2022-08-13 14:57] LABS: Hematocrit (blood only) 20.2 % (37.0-47.0); Hemoglobin 6.7 g/dl (12.0-16.0)
[2022-08-13] MEDS ORDERED: ACETAMINOPHEN 325 MG TAB PO ONE (14:58)
[2022-08-13] MEDS ORDERED: SODIUM CHLORIDE 0.9% 250 ML IV PRN (14:58)
--- NOTE | 2022-08-13 17:27 | Hospitalist Progress Note ---
Date of Service August 13, 2022 Assessment & Plan (1) Periprosthetic fracture around internal prosthetic right hip joint: (2) Diabetes mellitus, type II: (3) Hyperlipidemia: (4) HTN (hypertension): (5) Anxiety and depression: (6) Breast cancer: (7) IBS (irritable bowel syndrome): Plan This is a 67yo F with PMH of HTN, DM II, HLD, mood disorder, h/o breast cancer s/p partial mastectomy and other medical problems listed below who is postop day 1 status post total right hip replacement by Dr. Krishnamurthy performed at outpatient surgery center in [place] 08/10 presenting with right hip pain after fall. Acute periprosthetic fracture Acute blood loss anemia: Likely secondary to operative loss POD#4 s/p total R ESTUARDO by Dr. 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 Hb drop significant, will hold eliquis today, order 1 unit prbc, hnh in pm and am. monitor closely. Continue with pain management, bowel regimen, incentive spirometry. DM II A1c 5.7 Hold home agents SSI while in-patient BSG stable HTN On low side hold amlodipine and lisinopril for now, resume when able Anxiety and depression Continue Buspar, Prozac mood stable H/o breast cancer S/p partial mastectomy in 2011 IBS Bentyl PRN Thyroid gland nodule Incidental finding of 4 cm nodule/lesion arising from the right lobe of the thyroid gland. If not already performed, an ultrasound-guided fine-needle aspiration is recommended DVT Ppx: eliquis on hold. will resume raymond, pending stabilization of hb. PCP: Gisselle Mathews ([place]) Dispo: Admitted to med/surg Admission and Anticipated Discharge Date Admission Date: August 10, 2022 Subjective Patient was seen and examined in room 310. Follow-up right periprosthetic femur fracture. Patient was lying in bed, on room air, NAD, reports right hip pain and appears in mild distress/ was waiting for pain meds. She denies fever, chills, sweats, lightheadedness, dizziness, chest pain, shortness breath, nausea, vomiting, abdominal pain. Physical Exam Physical Exam: Gen: WD/WN, NAD, A&O x3 HEENT: Normocephalic, atraumatic, conjunctivae moist, sclerae anicteric, mucous membranes moist. Lung: Clear to Auscultation bilaterally, no wheezes/rales/rhonchi Heart: Regular rate, regular rhythm, no murmurs, rubs, or gallops Abdomen: Obese abdomen, soft, NT, ND +BS x 4 Extremities: Trace right lower extremity edema, dressing to right proximal lateral thigh clean dry and intact, right lower extremity neurovascular intact distal Skin: Warm, no rash, negative turgor. Results & Data Results & Data Vital Signs (Past 12 Hours) Vital Signs Temp Pulse Pulse Resp BP BP Pulse Ox 08/13/22 17:05 36.9 C 93 H 18 116/72 95 08/13/22 16:35 37.4 C 93 H 18 110/70 08/13/22 16:20 37.2 C 92 H 18 116/70 97 08/13/22 16:05 36.7 C 92 H 18 107/68 97 08/13/22 15:46 36.7 C 92 H 18 96/63 L 97 08/13/22 11:13 37.2 C 96 H 18 138/63 96 08/13/22 07:02 36.6 C 93 H 18 120/69 97 08/13/22 05:53 106 H 08/13/22 05:49 36.9 C 111 H 18 113/72 94 O2 Del Method 08/13/22 17:05 08/13/22 16:35 08/13/22 16:20 08/13/22 16:05 08/13/22 15:46 Room Air 08/13/22 11:13 Room Air 08/13/22 07:02 Room Air 08/13/22 05:53 08/13/22 05:49 Room Air
[2022-08-13] MEDS: DOCUSATE SODIUM/SENNA 50/8.6MG TAB PO SCH (19:26)
[2022-08-13] MEDS ORDERED: APIXABAN 2.5 MG TAB PO SCH (21:00)
[2022-08-13] MEDS: SIMVASTATIN 20 MG TAB PO SCH (21:26)
[2022-08-13 21:28] LABS: Hematocrit (blood only) 21.4 % (37.0-47.0); Hemoglobin 7.2 g/dl (12.0-16.0)
[2022-08-14] MEDS: ACETAMINOPHEN 500 MG TAB PO SCH ×3 (01:03→16:05)
[2022-08-14] MEDS: oxyCODONE HCL IR 5 MG TAB (IMMEDIATE RELEASE) PO PRN ×4 (03:43→22:18)
[2022-08-14 06:48] LABS: Basophils # (auto) 0.02 K/uL (0-0.2); Basophils % (auto) 0.4 %; Eosinophils # (auto) 0.07 K/uL (0-0.50); Eosinophils % (auto) 1.2 %; Hematocrit (blood only) 21.3 % (37.0-47.0); Hemoglobin 7.2 g/dl (12.0-16.0); Immature Granulocytes # (auto) 0.02 K/uL (0.01-0.20); Immature Granulocytes % (auto) 0.4 %; Lymphocytes # (auto) 0.95 K/uL (1.2-3.4); Lymphocytes % (auto) 16.8 %; Mean Corpuscular Hemoglobin 30.1 pg (25.0-34.0); Mean Corpuscular Hgb Conc 33.8 g/dL (32.0-36.0); Mean Corpuscular Volume 89.1 fL (80.0-100.0); Mean Platelet Volume 10.9 fL (9.4-12.4); Monocytes # (auto) 0.83 K/uL (0.11-0.59); Monocytes % (auto) 14.7 %; Neutrophils # (auto) 3.76 K/uL (1.40-6.50); Neutrophils % (auto) 66.5 %; Platelet Count 180 K/uL (130-400); RDW Coefficient of Variation 14.6 % (11.5-14.5); RDW Standard Deviation 46.6 fL (36.4-46.3); Red Blood Count 2.39 M/uL (4.20-5.40); White Blood Count 5.65 K/ul (4.8-10.8)
[2022-08-14 07:06] LABS: Creatinine Clr Calc Pharmacy 95.4 ml/min; Est GFR (African American) 100.4 ml/min; Est GFR (Non-African American) 86.7 ml/min; Phosphorus 2.7 mg/dl (2.5-4.9)
[2022-08-14 07:19] LABS: Polychromasia 1+
--- NOTE | 2022-08-14 07:53 | Orthopedic Progress Note ---
Date of Service August 14, 2022 Assessment & Plan (1) Periprosthetic fracture around internal prosthetic right hip joint: Plan: Postop day 2 status post revision right ESTUARDO with ORIF of periprosthetic femur fracture. PT/OT protocols. Toe-touch weightbearing right lower extremity. No abduction exercises. DVT prophylaxis-apixaban 2.5 mg p.o. twice daily, SCDs, WILLY hose. Pain management-oxycodone 5-10 mg p.o. every 4 hours as needed, hydromorphone 25 mg p.o. every 3 hours as needed, Toradol 15 mg every 6 hours as needed x24 hours, acetaminophen 1000 mg p.o. every 8 hours. Acute Blood Loss Anemia - transfuse as per Med Service (Hgb 10 on admit) once 6.7 yesterday and did receive 1 unit of packed red blood cells. Hemoglobin today up to 7.2. Transfuse per medicine. DC planning-[facility] when stable.. Admission and Anticipated Discharge Date Admission Date: August 10, 2022 Supervising Physician Co-Signing Physician Notes Patient seen and examined. Agree with APOLINAR Torres's note as above. Patient is resting comfortably in bed. States she was sitting bedside yesterday, but unable to stand up yet. Denies any dizziness with sitting upright. H&H 8.8/27.2 preop -> 6.7/20.2 postop -> 1u PRBC yesterday -> 7.2/21.3 this AM. States that she feels "tired" this morning, but overall doing better than yesterday. Monitor and transfuse per medicine. Pain is controlled. Toe-touch weightbearing on right leg. Disposition pending. Subjective Patient is postop day #2 right revision total hip arthroplasty for periprosthetic femur fracture. She is doing okay this morning. Her pain is better controlled. She did receive 1 unit of blood yesterday. She has no other current complaints. Denies chest pain, shortness of breath, dizziness, headaches, nausea/vomiting/diarrhea. Review of Systems Review of Systems: All systems reviewed & are unremarkable except as noted in Subjective Physical Exam Physical Exam: Right hip: Prevena wound VAC is clean, dry, intact and on suction. Compartments soft and nontender. She has no calf tenderness. Toes are mobile. Good dorsiflexion. Distally neurovascular status and sensation grossly intact. Results & Data Vital Signs (Past 12 Hours) Vital Signs Temp Pulse Resp BP Pulse Ox O2 Del Method 08/13/22 22:52 36.9 C 89 16 120/74 95 Room Air Laboratory Results H & H 08/10/22 08/11/22 08/12/22 Range/Units 12:10 08:03 05:25 Hgb 10.0 L 9.1 L 8.8 L (12.0-16.0) g/dl Hct 31.2 L 28.7 L 27.2 L (37.0-47.0) % 08/13/22 08/13/22 08/13/22 Range/Units 05:36 14:37 21:09 Hgb 7.6 L 6.7 L* 7.2 L (12.0-16.0) g/dl Hct 23.4 L 20.2 L* 21.4 L (37.0-47.0) % 08/14/22 Range/Units 05:54 Hgb 7.2 L (12.0-16.0) g/dl Hct 21.3 L (37.0-47.0) % Coagulation 08/10/22 Range/Units 12:10 INR 1.0 (0.9-1.1)
[2022-08-14] MEDS: MULTIVITAMIN TAB PO SCH (08:10)
[2022-08-14] MEDS: busPIRone 7.5 MG TAB PO SCH ×3 (08:10→21:55)
[2022-08-14] MEDS: ADVANCED PROBIOTIC 1250 MG CAPSULE PO SCH (08:10)
[2022-08-14] MEDS: FLUoxetine HCL 20 MG CAP PO SCH (08:10)
[2022-08-14] MEDS: CHOLECALCIFEROL 1,000 UNITS 25 MCG TAB PO SCH ×2 (08:10→21:55)
[2022-08-14] MEDS: POLYETHYLENE (MIRALAX) 17 GM PACK PO SCH (08:50)
[2022-08-14] MEDS: INSULIN ASPART PER UNIT CHARGE SC SCH ×4 (08:51→21:43)
[2022-08-14 13:12] LABS: Hematocrit (blood only) 22.5 % (37.0-47.0); Hemoglobin 7.4 g/dl (12.0-16.0)
[2022-08-14] MEDS ORDERED: SODIUM CHLORIDE 0.9% 250 ML IV PRN (14:24)
[2022-08-14] MEDS ORDERED: ACETAMINOPHEN 325 MG TAB PO ONE (14:24)
--- NOTE | 2022-08-14 16:08 | Hospitalist Progress Note ---
Date of Service August 14, 2022 Assessment & Plan (1) Periprosthetic fracture around internal prosthetic right hip joint: (2) Diabetes mellitus, type II: (3) Hyperlipidemia: (4) HTN (hypertension): (5) Anxiety and depression: (6) Breast cancer: (7) IBS (irritable bowel syndrome): Plan This is a 67yo F with PMH of HTN, DM II, HLD, mood disorder, h/o breast cancer s/p partial mastectomy and other medical problems listed below who is postop day 1 status post total right hip replacement by Dr. Krishnamurthy performed at outpatient surgery center in [place] 08/10 presenting with right hip pain after fall. Acute periprosthetic fracture Acute blood loss anemia: Likely secondary to operative loss POD#5 s/p total R ESTUARDO by Dr. 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 Hb drop significant yesterday, still borderline low despite transfusion - continue to hold eliquis today and order another unit prbc transfusion. H N H in PM and AM, Monitor closely. Continue with pain management, bowel regimen, incentive spirometry. DM II A1c 5.7 Hold home agents SSI while in-patient BSG stable HTN On low side hold amlodipine and lisinopril for now, resume when able Anxiety and depression Continue Buspar, Prozac mood stable H/o breast cancer S/p partial mastectomy in 2011 IBS Bentyl PRN Thyroid gland nodule Incidental finding of 4 cm nodule/lesion arising from the right lobe of the thyroid gland. If not already performed, an ultrasound-guided fine-needle aspiration is recommended DVT Ppx: eliquis on hold. will resume raymond, pending stabilization of hb. PCP: Gisselle Mathews ([place]) Dispo: Admitted to med/surg Admission and Anticipated Discharge Date Admission Date: August 10, 2022 Subjective Patient was seen and examined in room 310. Follow-up right periprosthetic femur fracture. Patient was lying in bed, on room air, NAD, reports right hip pain under control today and feels better. Hb level still borderline low and pt is tachycardic, will transfuse one more unit of prbc today. She denies fever, chills, sweats, lightheadedness, dizziness, chest pain, shortness breath, nausea, vomiting, abdominal pain. Physical Exam Physical Exam: Gen: WD/WN, NAD, A&O x3 HEENT: Normocephalic, atraumatic, conjunctivae moist, sclerae anicteric, mucous membranes moist. Lung: Clear to Auscultation bilaterally, no wheezes/rales/rhonchi Heart: Regular rate, regular rhythm, no murmurs, rubs, or gallops Abdomen: Obese abdomen, soft, NT, ND +BS x 4 Extremities: Trace right lower extremity edema, dressing to right proximal lateral thigh clean dry and intact, right lower extremity neurovascular intact distal Skin: Warm, no rash, negative turgor. Results & Data Results & Data Vital Signs (Past 12 Hours) Vital Signs Temp Pulse Pulse Resp BP BP Pulse Ox 08/14/22 15:48 37.1 C 90 18 121/75 95 08/14/22 14:35 36.9 C 93 H 18 132/74 96 08/14/22 08:05 37.2 C 92 H 18 120/69 92 O2 Del Method O2 Flow Rate 08/14/22 15:48 0 08/14/22 14:35 Room Air 08/14/22 08:05 Room Air
[2022-08-14] MEDS: HYDROmorphone INJ 0.5 MG/0.5 ML SYR IV PRN (19:35)
[2022-08-14] MEDS: SIMVASTATIN 20 MG TAB PO SCH (21:55)
[2022-08-14] MEDS: DOCUSATE SODIUM/SENNA 50/8.6MG TAB PO SCH (21:56)
[2022-08-14 22:49] LABS: Hematocrit (blood only) 23.6 % (37.0-47.0); Hemoglobin 7.9 g/dl (12.0-16.0)
[2022-08-15] MEDS: ACETAMINOPHEN 500 MG TAB PO SCH ×3 (01:49→16:44)
--- NOTE | 2022-08-15 07:01 | Orthopedic Progress Note ---
Date of Service August 15, 2022 Assessment & Plan (1) Periprosthetic fracture around internal prosthetic right hip joint: Plan: Postop day 3 status post revision right ESTUARDO with ORIF of periprosthetic femur fracture. PT/OT protocols. Toe-touch weightbearing right lower extremity. No abduction exercises. DVT prophylaxis-apixaban 2.5 mg p.o. twice daily-on hold. Can resume once hemoglobin stable., SCDs, WILLY mclean. Pain management-oxycodone 5-10 mg p.o. every 4 hours as needed, hydromorphone 25 mg p.o. every 3 hours as needed, Toradol 15 mg every 6 hours as needed x24 hours, acetaminophen 1000 mg p.o. every 8 hours. Acute Blood Loss Anemia - transfuse as per Med Service (Hgb 10 on admit) once 7.9 last night after an additional unit of blood. Morning labs pending. Transfuse per medicine. DC planning-patient will SNF when stable. Insurance Auth pending. Orthopedics will sign off at this time. Discharge instructions placed in her chart. Patient can follow-up with Dr. Krishnamurthy 12 to 14 days postoperatively. She can call [phone] for an appointment. Please call with any questions. Admission and Anticipated Discharge Date Admission Date: August 10, 2022 Subjective Patient resting in bed comfortably. She is sleeping on my arrival, easily awoken. Has complaints of mild to moderate pain but otherwise doing well. Luan es chest pain, shortness of breath, dizziness, lightheadedness, nausea/vomiting. Review of Systems Review of Systems: All systems reviewed & are unremarkable except as noted in Subjective Physical Exam Physical Exam: Right hip: Prevena wound VAC is clean, dry, intact and on suction. Compartments soft and nontender. She has no calf tenderness. Toes are mobile. Good dorsiflexion. Distally neurovascular status and sensation grossly intact. Results & Data Vital Signs (Past 12 Hours) Vital Signs Temp Pulse Resp BP Pulse Ox O2 Del Method 08/14/22 21:55 Room Air 08/14/22 21:50 37.3 C 91 H 16 121/60 95 Room Air
[2022-08-15] MEDS: POLYETHYLENE (MIRALAX) 17 GM PACK PO SCH (08:00)
[2022-08-15] MEDS: MULTIVITAMIN TAB PO SCH (08:01)
[2022-08-15] MEDS: CHOLECALCIFEROL 1,000 UNITS 25 MCG TAB PO SCH ×2 (08:01→21:03)
[2022-08-15] MEDS: busPIRone 7.5 MG TAB PO SCH ×3 (08:01→21:03)
[2022-08-15] MEDS: ADVANCED PROBIOTIC 1250 MG CAPSULE PO SCH (08:01)
[2022-08-15] MEDS: FLUoxetine HCL 20 MG CAP PO SCH (08:01)
[2022-08-15] MEDS ORDERED: SODIUM CHLORIDE 0.65% NA SOLN 45 ML (OCEAN) ONE (08:07)
[2022-08-15] MEDS: oxyCODONE HCL IR 5 MG TAB (IMMEDIATE RELEASE) PO PRN ×2 (08:58→18:28)
[2022-08-15] MEDS: INSULIN ASPART PER UNIT CHARGE SC SCH ×4 (09:00→21:02)
[2022-08-15 09:26] LABS: Hematocrit (blood only) 23.7 % (37.0-47.0); Hemoglobin 7.9 g/dl (12.0-16.0)
[2022-08-15 09:46] LABS: BUN Creatinine Ratio 22.8 (10-20); Calcium 8.2 mg/dl (8.6-10.3); Creatinine Clr Calc Pharmacy 120.5 ml/min; Est GFR (African American) 111.2 ml/min; Est GFR (Non-African American) 95.9 ml/min; Potassium 3.8 mmol/L (3.5-5.1)
[2022-08-15] MEDS: APIXABAN 2.5 MG TAB PO SCH ×2 (11:10→21:03)
[2022-08-15] MEDS: HYDROmorphone INJ 0.5 MG/0.5 ML SYR IV PRN (12:13)
[2022-08-15 14:51] LABS: Hematocrit (blood only) 24.6 % (37.0-47.0); Hemoglobin 8.2 g/dl (12.0-16.0)
--- NOTE | 2022-08-15 16:59 | Hospitalist Progress Note ---
Date of Service August 15, 2022 Assessment & Plan (1) Periprosthetic fracture around internal prosthetic right hip joint: (2) Diabetes mellitus, type II: (3) Hyperlipidemia: (4) HTN (hypertension): (5) Anxiety and depression: (6) Breast cancer: (7) IBS (irritable bowel syndrome): Plan This is a 67yo F with PMH of HTN, DM II, HLD, mood disorder, h/o breast cancer s/p partial mastectomy and other medical problems listed below who is postop day 1 status post total right hip replacement by Dr. Krishnamurthy performed at outpatient surgery center in [place] 08/10 presenting with right hip pain after fall. Acute periprosthetic fracture Acute blood loss anemia: Likely secondary to operative loss POD#6 s/p total R ESTUARDO by Dr. 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 Hemoglobin started to stabilize, heart rate got better, Eliquis restarted per orthopedics recommendation, monitor H&H closely. Continue with pain management, bowel regimen, incentive spirometry. DM II A1c 5.7 Hold home agents SSI while in-patient BSG stable HTN On low side hold amlodipine and lisinopril for now, resume when able Anxiety and depression Continue Buspar, Prozac mood stable H/o breast cancer S/p partial mastectomy in 2011 IBS Bentyl PRN Thyroid gland nodule Incidental finding of 4 cm nodule/lesion arising from the right lobe of the thyroid gland. If not already performed, an ultrasound-guided fine-needle aspiration is recommended DVT Ppx: eliquis. PCP: Gisselle Mathews ([place]) Dispo: Admitted to med/surg , PT/OT, CM to assist with DC planning. Likely DC tomorrow. Admission and Anticipated Discharge Date Admission Date: August 10, 2022 Subjective Patient was seen and examined in room 310. Follow-up right periprosthetic femur fracture. Patient was sitting up in chair, on room air, NAD, reports right hip pain under control today and feels better/reports making progress w/ PT/OT. Hb level getting better, HR better, will resume eliquis and closely monitor HnH. She denies fever, chills, sweats, lightheadedness, dizziness, chest pain, shortness breath, nausea, vomiting, abdominal pain. no bleeding or increasing bruise noted over the operative site. Physical Exam Physical Exam: Gen: WD/WN, NAD, A&O x3 HEENT: Normocephalic, atraumatic, conjunctivae moist, sclerae anicteric, mucous membranes moist. Lung: Clear to Auscultation bilaterally, no wheezes/rales/rhonchi Heart: Regular rate, regular rhythm, no murmurs, rubs, or gallops Abdomen: Obese abdomen, soft, NT, ND +BS x 4 Extremities: Trace right lower extremity edema, dressing to right proximal lateral thigh clean dry and intact, right lower extremity neurovascular intact distal Skin: Warm, no rash, negative turgor. Results & Data Results & Data Vital Signs (Past 12 Hours) Vital Signs Temp Pulse Resp BP Pulse Ox O2 Del Method 08/15/22 16:02 36.8 C 89 18 114/65 93 Room Air 08/15/22 07:38 36.8 C 92 H 18 131/78 94 Room Air
[2022-08-15] MEDS: DOCUSATE SODIUM/SENNA 50/8.6MG TAB PO SCH (21:01)
[2022-08-15] MEDS: SIMVASTATIN 20 MG TAB PO SCH (21:03)
[2022-08-16] MEDS: oxyCODONE HCL IR 5 MG TAB (IMMEDIATE RELEASE) PO PRN ×2 (00:38→07:45)
[2022-08-16] MEDS: ACETAMINOPHEN 500 MG TAB PO SCH ×2 (00:38→07:46)
[2022-08-16] MEDS: POLYETHYLENE (MIRALAX) 17 GM PACK PO SCH (07:46)
[2022-08-16] MEDS: FLUoxetine HCL 20 MG CAP PO SCH (07:46)
[2022-08-16] MEDS: ADVANCED PROBIOTIC 1250 MG CAPSULE PO SCH (07:47)
[2022-08-16] MEDS: MULTIVITAMIN TAB PO SCH (07:47)
[2022-08-16] MEDS: busPIRone 7.5 MG TAB PO SCH (07:47)
[2022-08-16] MEDS: CHOLECALCIFEROL 1,000 UNITS 25 MCG TAB PO SCH (07:47)
[2022-08-16] MEDS: APIXABAN 2.5 MG TAB PO SCH (07:48)
[2022-08-16 08:11] LABS: Hematocrit (blood only) 24.2 % (37.0-47.0)
[2022-08-16] MEDS: INSULIN ASPART PER UNIT CHARGE SC SCH (08:42)
--- NOTE | 2022-08-16 10:46 | Discharge Summary ---
Date of Service August 16, 2022 Admission HPI Per Admitting Provider This is a 67yo F with PMH of HTN, DM II, HLD, mood disorder, h/o breast cancer s/p partial mastectomy and other medical problems listed below who is postop day 1 status post total right hip replacement by Dr. Krishnamurthy performed at outpatient surgery center in [place] yesterday presenting with right hip pain after fall. Had surgery yesterday morning and got home around 2 PM. Around 11 PM, when she was getting ready to go to bed and was being assisted to stand, felt a pop in her hip replacement. Was able to go to bed but in the morning when her son helped her ambulate to the bathroom and was attempting to sit down again when she heard a pop and fell forward, landing face first on the floor. Called EMS and brought patient in for further evaluation. Pain is a throbbing, 10/10 pain on inside aspect of hip with radiation towards her knee. No headache, lightheadedness, CP, SOB, N/V, abdominal pain, dysuria, diarrhea or constipation. Did not take any home medications. Receives primary care in [place]. Admission Exam Per Admitting Provider General Appearance:WD/WN, vitals as above, NAD, sitting up in bed, pleasant, obese, in acute pain Head: normocephalic, atraumatic Eyes:normal inspection, PERRL, conjunctivae normal, anicteric sclerae ENT: external ear and nose normal, oropharynx normal Neck: normal visual inspection, trachea midline, no thyromegaly Respiratory:normal respiratory effort, lungs clear to auscultation, no wheeze, rales, rhonchi. No accessory muscle use Cardiovascular: regular rate, rhythm, no murmur, normal peripheral pulses, no BLE edema. Vessels: no JVD Chest: normal inspection of chest Abdomen/GI: normal bowel sounds, soft, nontender, no hepatosplenomegaly Extremities/Musculoskeletal: no cyanosis or clubbing, extremities motor strength 5/5. + R medial thigh with palpable displacement and ecchymosis, TTP, RLE externally rotated :Lang Neurologic: PERRL, EOMI, accommodation nl, no face palsy, no dysarthria, CN's II-XI intact bilaterally and moves all extremities Psychiatric:A+Ox3, euthymic affect Skin: no rashes, normal color, warm/dry Principal Diagnosis Acute periprosthetic fracture Acute blood loss anemia Hypertension Discharge Exam Gen: WD/WN, NAD, A&O x3 HEENT: Normocephalic, atraumatic, conjunctivae moist, sclerae anicteric, mucous membranes moist. Lung: Clear to Auscultation bilaterally, no wheezes/rales/rhonchi Heart: Regular rate, regular rhythm, no murmurs, rubs, or gallops Abdomen: Obese abdomen, soft, NT, ND +BS x 4 Extremities: Trace right lower extremity edema, dressing to right proximal lateral thigh clean dry and intact, right lower extremity neurovascular intact distal Skin: Warm, no rash, negative turgor. Discharge Data Allergies Allergy/AdvReac Type Severity Reaction Status Date / Time dicyclomine Allergy Unknown rash Verified 02/18/20 06:27 bupropion AdvReac Unknown mood swings Verified 02/18/20 06:27 hyscyamine Allergy Unknown rash Uncoded 02/18/20 06:27 surgical tape AdvReac Unknown BROWN Uncoded 02/18/20 06:27 SURGICAL TAPE - rash Consultations 08/10/22 12:40 Consult Orthopedic Surgery Stat 08/10/22 12:41 ED Decision to Admit Stat 08/10/22 16:46 Consult Anesthesiology Routine Procedures Performed Operation Date: 08/12/22 07:00 Actual Procedures p Right Revision Total Hip Arthroplasty, Open Reduction Internal Fixation(Right) - Buddy Krishnamurthy, Ordered Studies 08/10/22 11:13 CT cervical spine wo con Stat CT head/brain wo con Stat Hospital Course (1) Periprosthetic fracture around internal prosthetic right hip joint: (2) Diabetes mellitus, type II: (3) Hyperlipidemia: (4) HTN (hypertension): (5) Anxiety and depression: (6) Breast cancer: (7) IBS (irritable bowel syndrome): Plan This is a 67yo F with PMH of HTN, DM II, HLD, mood disorder, h/o breast cancer s/p partial mastectomy and other medical problems listed below who is postop day 1 status post total right hip replacement by Dr. Krishnamurthy performed at outpatient surgery center in [place] 08/10 presenting with right hip pain after fall. She was being managed for the following: Acute periprosthetic fracture Acute blood loss anemia: Likely secondary to operative loss POD#7 s/p total R ESTUARDO by Dr. Krishnamurthy, presenting after a fall [employer] Admitting Pelvis XR with Right hip arthroplasty with acute and displaced periprosthetic proximal femoral fracture CT head, c-spine CT and CXR without acute traumatic findings Seen and evaled by ortho ---->>Postop day 4 status post revision right ESTUARDO with ORIF of periprosthetic femur fracture. Hemoglobin stable while on eliquis, heart rate got better, c/w Eliquis per orthopedics recommendation, monitor H&H w/ transition of care PCP visit. Continue with pain management, bowel regimen, incentive spirometry. Pain meds and bowel regimen as needed. DM II A1c 5.7 Hold home agents SSI while in-patient BSG stable HTN: BP getting better. Hold amlod for now, will resume lisinopril Anxiety and depression : Continue Buspar, Prozac, mood stable H/o breast cancer: S/p partial mastectomy in 2011 IBS: Bentyl PRN Thyroid gland nodule : Incidental finding of 4 cm nodule/lesion arising from the right lobe of the thyroid gland. If not already performed, an ultrasound-guided fine-needle aspiration is recommended DVT Ppx: eliquis. PCP: Gisselle Mathews ([place]) Patient being discharged to SNF with following instruction at the point of discharge: Follow-up with your primary care physician within a week time and likely will need labs CBC/CMP/magnesium. Follow the instruction from orthopedics follow-up with orthopedics as instructed by them in 1 to 2 weeks upon discharge. Continue with your physical therapy. If you find yourself using more pain medication then you can use zegu-hbi-xkyhzix laxatives for constipation. You have 4 cm nodule arising from the right lobe of the thyroid gland which was incidental finding. Coordinate with your PCP office for ultrasound-guided fine- needle aspiration if it has not been done in the past. Take your medications as prescribed. Home Health Attestation I certify that this patient is under my care and that I, or a physicians human resources office assistant working with me, had a face to-face encounter that meets the home health [id number] encounter requirements with this patient. The encounter with the patient was in whole, or in part, for the following medical condition, which is the primary reason for home health care (list medical condition): I certify that, based on my findings, the following services are medically necessary home health services: My clinical findings support the need for the above services because: Further, I certify that my clinical findings support that this patient is homebound (i.e. absences from home require considerable and taxing effort and are for medical reasons or scientologist services or infrequently or of short duration when for other reasons) because: Certification for Home Health Services: Based on the above findings, I certify that this patient is confined to the home and needs intermittent half-way care, physical therapy and/or speech therapy or continues to need occupational therapy. The patient is under my care, and I have initiated the establishment of the plan of care. This patient will be followed by a physician who will periodically review the plan of care. Total Time Total Time Spent Total Time Spent (In Minutes): 45 Discharge Plan Discharge Items Patient Disposition: Transfer Shelter Fac Reason For Visit: PERIPROSTHETIC HIP FRACTURE Discharge Diagnosis: Acute periprosthetic fracture Acute blood loss anemia Hypertension Activity: As commented below Non-emergency contact: Primary Care Provider Call non-emergency contact if: you have any medication questions Follow-up/Referrals: Gisselle Mathews [Primary Care Provider] - Diet: Carb Consistent or DM2 Addtl Attending Provider Instructions: Follow-up with your primary care physician within a week time and likely will need labs CBC/CMP/magnesium. Follow the instruction from orthopedics follow-up with orthopedics as instructed by them in 1 to 2 weeks upon discharge. Continue with your physical therapy. If you find yourself using more pain medication then you can use rbss-lnd-[id number] laxatives for constipation. You have 4 cm nodule arising from the right lobe of the thyroid gland which was incidental finding. Coordinate with your PCP office for ultrasound-guided fine- needle aspiration if it has not been done in the past. Take your medications as prescribed. Addtl Manager Print Provider Instructions: [facility] DISCHARGE INSTRUCTIONS SELF CARE INSTRUCTIONS: A. You are to ambulate with a walker or crutches for approximately 6 weeks. B. You are TOE TOUCH WEIGHT BEARING on your operative lower extremity for at least 6 weeks. C. Wear low heeled shoes with non-slip soles D. Be sure that your floors are free of things that could trip you throw rugs, electrical cords, and small objects. Avoid wet and waxed floors, especially with crutches/walker/cane. E. Try to walk several times a day with rest periods between. F. You may shower 48 hours after surgery and get the incision area wet, but DO NOT soak or submerge incision area in water. (No baths, swimming pools, hot tubs) G. This is a large suction dressing covering your incision. This will help pull any excess drainage from the wound and allow your incision to heal properly. You may shower with this if you can keep the unit outside of the shower. If any bleeding or leakage is noted please call your doctor's office. This will remain on your incision for 7 days and then should be removed. This can be done yourself or by the home nursing staff if applicable. The entire unit is disposable once removed. Once removed, keep incision clean and dry. If redness or drainage is noted, please call your surgeon. You CAN shower with this on. If incision is leaking through the dressing, please call the office . H. Do NOT apply soap or any ointment/lotions directly over incision. I. You may use ice as needed to operative site. SPECIAL CARE INSTRUCTIONS: VERY IMPORTANT TO READ AND REVIEW A. You may be at risk for phlebitis or blood clots. a. Wear surgical stockings (WILLY hose) for 2 weeks after surgery to improve circulation and reduce swelling. b. Take Eliquis 2.5mg twice daily for 4 weeks or as directed. This is your blood thinner. . B. There are a few signs you need to watch for after you are home. Call [facility] at [phone] if you experience any of the following: a. If you have a temperature of 101 degrees or higher. b. Sudden increase in pain in your hip not relieved by rest or pain medication. c. Any fluid or drainage from the incision; redness of the incision. d. Shortness of breath or chest pain. B. Please call [facility] at [phone] if you have any questions or concerns about your operation or recovery. C. Call your physician if: a. Temperature is greater than 101 degrees (F). b. Pain is not relieved by prescribed pain medications. c. Increase drainage or redness from incision. d. Unanswered questions or concerns. D. Pain Medication: a. You will be prescribed pain medication upon discharge that should last till your first post-operative appointment. b. If you experience nausea and/or skin rash, discontinue this medication and contact our office for an alternative medication. c. Caution- narcotic pain medication can cause constipation. FOLLOW UP VISIT: Please call [facility] at [phone] to schedule a follow up appointment 12-14 days from the date of your surgery date. Pending Studies at Discharge: No Stand-Alone Forms: My [facility] Skilled Items Patient informed of condition?: Yes DNR: No Discharge Level of Care: Skilled Communicable Disease: No Discharge Prognosis: Stable Lines: None Urinary Catheter: No Medications and DC Order Prescriptions: New Eliquis 2.5 mg Tablet 2.5 mg PO BID 27 Days Qty: 54 0RF oxycodone 5 mg Tablet 5 mg PO Q4H PRN (Reason: severe pain (scale score 7-10)) 5 Days Qty: 30 0RF sennosides-docusate sodium [Senokot-S] 8.6-50 mg Tablet 2 tab PO HS 7 Days Qty: 14 0RF cholecalciferol (vitamin D3) 25 mcg (1,000 unit) Capsule 1,000 unit PO DAILY Qty: 30 0RF Continued fluoxetine [Prozac] 40 mg Capsule 60 mg PO QAM ondansetron HCl [Zofran] 4 mg Tablet 4 mg PO Q6H PRN (Reason: Nausea) meclizine 25 mg Capsule 25 mg PO TID PRN (Reason: Dizziness) hydrocodone-acetaminophen [[place]] 7.5-325 mg Tablet 1 tab PO BID PRN (Reason: Pain) pantoprazole [Protonix] 40 mg Tablet,Delayed Release (Dr/Ec) 40 mg PO DAILY PRN (Reason: Acid Reflux) simvastatin [Zocor] 20 mg Tablet 20 mg PO HS aspirin 81 mg Tablet 81 mg PO QAM pioglitazone [Actos] 30 mg Tablet 30 mg PO QAM meogrrb-cmiurkibf-mhus 333-133-5 mg Tablet 2 tab PO DAILY Probiotic 3 billion cell Capsule 3,000 mmu cells PO DAILY lisinopril 20 mg tablet 20 mg PO DAILY buspirone 7.5 mg tablet 7.5 mg PO TID dicyclomine 10 mg capsule 10 mg PO QID PRN (Reason: Abdominal Pain) Held amlodipine 5 mg tablet 5 mg PO DAILY Hold Instructions: Resume on 08/23/22. measure BP at home and coordinate with your PCP before resuming this med, your BP was low normal without it while in hosp. Discharge Orders: Discharge Order (Routine); Ordered 08/16/22 Ordered By: Johann Hussein Admission Data Admit Date/Time: 08/10/22 12:50 Attending Provider: Johann Hussein Admit Provider: Jessica Salguero Primary Care Provider: Gisselle Mathews Other Providers: [facility] ; Buddy Krishnamurthy ; Jessica Salguero ; Poncho Mendoza Other Interventions: Discharge Summary Assessment (RN) Last Done: 08/16/22 09:39
== END 2022-08-16 11:25 | DRG 481 ==
LOC: ED 10:21 → 3E 12:50 → SUATTDRO 12:50 → 3E 15:02

== ENCOUNTER 2022-08-31 05:37 | Inpatient (IN) ==
[2022-08-31] MEDS ORDERED: ACETAMINOPHEN 325 MG TAB PO PRN (08:49)
[2022-08-31] MEDS ORDERED: ALUMINUM/MAGNESIUM SUSP 30 ML UDC PO PRN (08:49)
[2022-08-31] MEDS ORDERED: SODIUM CHLORIDE 0.9% 250 ML IV PRN (09:28)
[2022-08-31] MEDS ORDERED: GLUCOSE 10 TAB/TUBE PO PRN (09:33)
[2022-08-31] MEDS ORDERED: GLUCOSE 40% GEL 15 GM TUBE PO PRN (09:33)
[2022-08-31] MEDS ORDERED: GLUCAGON FOR INJ 1 MG VIAL SQ PRN (09:33)
[2022-08-31] MEDS ORDERED: DEXTROSE 50% 50 ML SYRINGE IV PRN (09:33)
[2022-08-31] MEDS ORDERED: CARBOHYDRATES FOR HYPOGLYCEMIA PO PRN (09:33)
--- NOTE | 2022-08-31 09:49 | History & Physical Report ---
Date of Service August 31, 2022 Assessment & Plan (1) UGIB (upper gastrointestinal bleed): (2) Acute blood loss anemia: (3) Periprosthetic fracture around internal prosthetic right hip joint: (4) Age related osteoporosis: (5) Diabetes mellitus, type II: (6) HTN (hypertension): (7) Hyperlipidemia: Plan This is a 67yo F with PMH of HTN, DM II, HLD, mood disorder, h/o breast cancer s/p partial mastectomy and other medical problems who presents to ED from outside hospital for suspected upper GI bleeding. Pt presented to [facility] from [facility] due to abd pain, nausea, fatigue. Hgb 4.0, received 2 units PRBC and IV lasix. En route via life flight received additional [address] a/p at OSH revealed enteritis but evidence of bleed, or obstruction. NGT placed due to possible gastric distension and dark black material that was positive for occult blood was removed. Pt on eliquis for dvt ppx s/p R hip surgery. UGIB Acute blood loss anemia Pt admitted to PCU hgb at d/c was 8.0, hgb at OSH 4.0 today received 3 total units of PRBC so far and 1 dose of IV lasix repeat CBC, CMP, lactic, PT/INR consult GI - discussed with Hailey Puga PA-C continue PPI bolus and gtt NGT in place for now, not to suction, ok per GI obtain CXR Diarrhea/Enteritis per OSH CT stool for cdiff negative at OSH will repeat stool studies consider empiric zosyn Recent UTI pt with E. coli UTI on 08/17. Treated with bactrim/macrobid but pt refused due to upset stomach received 1g rocephin at OSH obtain UA gloria cath in place will need exchanged Periprosthetic fracture of right prosthetic hip joint status postrepair on 08/12 Toe-touch weightbearing to right lower extremity Hailey still intact Discussed with Fidel Natarajan for them to eval while in house T2DM Last A1c 5.7 Hold Actos NovoLog per protocol Hypertension Hold amlodipine and lisinopril for now in setting of GI bleed Depression/anxiety/mood disorder Continue BuSpar and fluoxetine when able to tolerate p.o. DVT prophylaxis: SCD, D/C apixaban FULL CODE PCP: Reid Pt was seen and collaborated with Dr. Stevens, please see addendum A total of 75 was spent coordinating, documenting, and providing care for this patient excluding time spent in the performance of separately billed services. This included personally viewing all current laboratories and imaging studies, medication reconciliation, outpatient chart review, and discussion with specialists. Admission and Anticipated Discharge Date Admission Date: August 31, 2022 History of Present Illness Chief Complaint: Direct admission for UGIB Primary Care Provider: Gisselle Mathews This is a 67yo F with PMH of HTN, DM II, HLD, mood disorder, h/o breast cancer s/p partial mastectomy and other medical problems who presents to ED from outside hospital for suspected upper GI bleeding. Of significance patient was recently hospitalized 08/10 to 08/16 after sustaining an acute periprosthetic right hip fracture. Of significance patient initially underwent outpatient right total hip replacement by Dr. Krishnamurthy in [place] and on postop day 1 sustained a fall on 08/12 she underwent right revision of her total hip arthroplasty by Dr. Krishnamurthy and had EBL of 500 mL. She remained hospitalized through 08/16 and was placed on Eliquis for DVT prophylaxis. Her chronic medical conditions remained stable throughout hospital stay and she was discharged to SNF at [facility]. Since being discharged to [facility] on 08/24 she was diagnosed with an E. coli UTI. She was placed on Macrobid and Bactrim although patient did not tolerate antibiotics well as she states they were upsetting her stomach. According to notes she was nonparticipating in therapy and also refusing medications. Yesterday patient developed lower severe abdominal pain that was nonradiating and she never experienced in the past. She was moving her bowels loosely 5-6 times a day. She also reported that it was dark black. She also reported nausea but no vomiting. She overall was very fatigued and had lack of appetite. She was sent to [facility] for further evaluation where she was found to have a hemoglobin of 4. She remained hemodynamically stable at their facility. She underwent CT abdomen pelvis with contrast which was negative for any active extravasation concerning for GI bleed. There was concern for possible gastric distention on CT scan and therefore NG tube was placed and what appeared to be fecal material was decompressed from stomach and tested positive for occult blood. Her stool was also positive for occult blood. Her stool was tested and negative for C. difficile but further enteric pathogens are pending. Her lactic acid and PT/INR were normal at that facility. Her BUN was elevated at 57 and creatinine at 1.2. She received 2 units of blood at [facility] as well as a Lasix in between units. She was transported via [facility] to our facility and received an additional 1 unit of blood in route. She was placed on PPI bolus and drip. Currently patient denies any abdominal pain but complains of severe dry mouth and discomfort from the NG tube. She overall generally feels unwell and very fatigued. She denies any right hip discomfort and states her physical therapy is not going well. She overall complains of being lightheaded. She denies any fever, chills, sweats, dizziness, chest pain, shortness breath at rest, cough or any respiratory symptoms. She continues to have a Gloria catheter in place. She did receive IV Rocephin at [facility]. Allergies Allergy/AdvReac Type Severity Reaction Status Date / Time dicyclomine Allergy Unknown rash Verified 08/31/22 09:18 bupropion AdvReac Unknown mood swings Verified 08/31/22 09:18 hyscyamine Allergy Unknown rash Uncoded 08/31/22 09:18 surgical tape AdvReac Unknown BROWN Uncoded 08/31/22 09:18 SURGICAL TAPE - rash Home Medications Medication Instructions Recorded Confirmed Type [id number] 333 mg-133 2 tab PO DAILY 02/01/20 08/31/22 History mg-5 mg tablet fluoxetine 40 mg capsule (Prozac) 60 mg PO QAM 02/01/20 08/31/22 History hydrocodone 7.5 mg-acetaminophen 1 tab PO BID PRN Pain 02/01/20 08/31/22 History 325 mg tablet ([place]) lactobacillus combination no.4 3 3,000 mmu cells PO DAILY 02/01/20 08/31/22 History billion cell capsule (Probiotic) meclizine 25 mg capsule 25 mg PO TID PRN Dizziness 02/01/20 08/31/22 History ondansetron HCl 4 mg tablet 4 mg PO Q6H PRN Nausea 02/01/20 08/31/22 History (Zofran) pantoprazole 40 mg tablet,delayed 40 mg PO DAILY PRN Acid Reflux 02/01/20 08/31/22 History release (Protonix) pioglitazone 30 mg tablet (Actos) 30 mg PO QAM 02/01/20 08/31/22 History simvastatin 20 mg tablet (Zocor) 20 mg PO HS 02/01/20 08/31/22 History amlodipine 5 mg tablet 5 mg PO DAILY 08/10/22 08/31/22 History buspirone 7.5 mg tablet 7.5 mg PO TID 08/10/22 08/31/22 History dicyclomine 10 mg capsule 10 mg PO QID 08/10/22 08/31/22 History lisinopril 20 mg tablet 20 mg PO DAILY 08/10/22 08/31/22 History apixaban 2.5 mg tablet (Eliquis) 2.5 mg PO BID 27 days #54 tabs 08/16/22 08/31/22 Rx cholecalciferol (vitamin D3) 25 1,000 unit PO DAILY #30 caps 08/16/22 08/31/22 Rx mcg (1,000 unit) capsule aspirin 81 mg tablet,delayed 81 mg PO DAILY 08/31/22 08/31/22 History release (Adult Low Dose Aspirin) ferrous sulfate 325 mg (65 mg 325 mg PO DAILY 08/31/22 08/31/22 History iron) capsule,extended release Past Med/Surg History Medical History (Updated 08/31/22 @ 14:44 by Oniel Cannon MD) Acid reflux Age related osteoporosis OSTEOPEROSIS Anxiety and depression Diabetes mellitus, type II Encounter for pre-operative examination History of breast cancer LEFT, HX RADIATION History of fall JAN 03 2020TRIPPED OVER SOMETHING AT [facility] -INJURED SELF - NOT DX WITH 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 HTN (hypertension) Hyperlipidemia IBS (irritable bowel syndrome) Surgical History History of History of colonoscopy History of hysterectomy History of partial mastectomy of left breast History of reduction surgery of right breast History of surgery LEFT LEG X2 History of total left knee replacement S/P hip replacement Family History Mother Family history of diabetes mellitus Other Family history of diabetes mellitus in father Patient's father is Social History Smoking Status: Never smoker Second Hand Exposure: No; Do You Dip or Chew Tobacco: No; Hx Alcohol Use: No Hx Substance Use: No Preferred Language: Lao Communication Ability: Effective Wood Floor Layer Required: No Beliefs That Will Affect Care: None Current Living Situation: Family Current Living Situation Comment: SON AND DEANNA LIVE WITH PT Other Information That Helps Us Care for You: No Feels Safe at Home: Yes Safety Concerns: Feels Safe At This Time Assistive Devices: Cane, Denture - Upper, Glasses, Walker and Wheelchair Review of Systems Review of Systems: All systems reviewed & are unremarkable except as noted in HPI & below Physical Exam Physical Exam: Constitutional: Acute ill appearing F, Pale, WD/WN, vitals as above, NAD, sitting up in bed,+NGT in place Head: Normocephalic, Atraumatic Eyes: PERRL, conjunctivae normal, anicteric sclerae ENMT: external ear and nose normal, oropharynx dry membranes Neck: trachea midline, no thyromegaly normal visual inspection Respiratory: normal respiratory effort, lungs clear to auscultation, no wheeze, rales, rhonchi. Normal insp/exp effort, no accessory muscle use Cardiovascular: RRR, no murmur, no edema Vessels: no JVD or carotid bruit Chest: normal inspection of chest Abdomen: absent bowel sounds, soft, nontender, no hepatosplenomegaly Musculoskeletal: no cyanosis or clubbing, AROM x 4, R lateral thigh incision cdi with deyanira intact, no surrounding erythema Skin: no rashes, warm and dry normal turgor Neurologic: PERRL, EOMI, accommodation nl, no face palsy, no dysarthria CN's II-XI intact bilaterally and moves all extremities Psychiatric: A+Ox3, euthymic affect Lymphatic: no cervical or axillary lymphadenopathy : gloria cath draining yellow urine Results & Data Results & Data Vital Signs (Past 12 Hours) Vital Signs Temp Pulse Resp BP Pulse Ox O2 Del Method 08/31/22 08:50 87 08/31/22 08:45 Room Air 08/31/22 08:42 36.3 C L 16 116/72 99 Room Air Laboratory Results Labs reviewed from [facility] hospital Diagnostic Findings CT scan reviewed from OSH ECG Rhythm: normal sinus Code Status & VTE Plan Code Status FULL CODE VTE Prophylaxis Plan VTE Prophylaxis will be ordered: Yes Supervising Physician Co-Signing Physician Notes Attending addendum: This is a 67yo F with PMH of HTN, DM II, HLD, mood disorder, h/o breast cancer s/p partial mastectomy and other medical problems who presents to ED from outside hospital for suspected upper GI bleeding. She is status post revision of ESTUARDO on 08/12/2022 with initial right hip arthroplasty on 08/10/2022 and has been on Eliquis for DVT prophylaxis She has been complaining of acute lower abdominal pain since yesterday and also has been having black tarry stool for the last day or 2 with nausea and epigastric discomfort. She was noted to have hemoglobin of 4 and received 3 units of blood transfusion prior to coming to this hospital. 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 Generally very weak Her admission labs and imaging studies noted. Hemoglobin 9.1, normal electrolytes with slightly increased BUN Likely has GI bleed which is complicated by use of Eliquis-Eliquis has been on hold and she is getting intravenous PPI Received 3 units of blood before being transferred to his hospital Status post right hip replacement on 08/10/2022 and revision on 08/12/2022 Await stool studies and rule out infection Reviewed assessment plan as outlined above by Shereen Stevens
--- NOTE | 2022-08-31 10:06 | XRay Report ---
XR chest 1V portable HISTORY: 67 years-old Female admit, s/p transfusion acute shortness of breath COMPARISON: 08/10/2022 TECHNIQUE: AP view of the chest FINDINGS: Distal tip of enteric tube courses below the diaphragm outside the field of view. Cardiac silhouette is enlarged. No pneumothorax, pleural effusion, airspace consolidation or pulmonary edema. Surgical c lips project over the left chest wall. IV catheter projects over the right axilla. Bones appear gross ly intact. IMPRESSION: No acute process. ACT 112: Negative or not required by law. The above report was generated using voice recognition software. It may contain grammatical, syntax o r spelling errors. Electronically signed by: Buddy Rod M.D. 08/31/2022 10:04 AM
[2022-08-31] MEDS ORDERED: ACETAMINOPHEN 1,000 MG/100 ML VIAL IV PRN (10:07)
[2022-08-31] MEDS: PANTOprazole 40 MG in DEXTROSE 5% 100 ML IV SCH ×3 (10:20→19:24)
--- NOTE | 2022-08-31 10:51 | Gastrointestinal Consultation ---
Date of Consultation August 31, 2022 Assessment & Plan (1) Periprosthetic fracture around internal prosthetic right hip joint: (2) Severe anemia: (3) Black stool: Plan 67 y/o female w/ recent fall and R hip fx s/p ESTUARDO 08/08, then had another fall and had periprosthetic proximal femur fracture s/p revision R ESTUARDO w/ ORIF 08/12, on Eliquis for DVT ppx and ABX for UTI. Now admitted from OSH w/ several days of black diarrhea, nausea, fatigue, abd pain, with severe anemia with HGB 8->4, s/p pRBC transfusion x 3, elevated BUN. CTA suggestive of enteritis, ? SB/esophageal dilation and s/p NGT placement. Pt feels improved s/p NGT and pRBC. There is concern for UGIB given her black stools (pt also on iron) and severe anemia, in the setting of recent trauma, surgery x 2 and Eliquis use. Currently on exam, VSS, abd soft, nontender. No active GIB (hematemesis, melena, hematochezia) at present. - Repeat H/H, as well as BMP, INR - Send stool for GI Pathogen panel - r/o infectious etiology - Continue PPI gtt - Would continue NGT in place for now - Monitor and document GI output Trend H&H, transfuse as needed - Keep NPO - Hold Eliquis Recommend imaging of her right hip to rule out any assoc hemorrhage given AC use - After pt is optimized from a medical standpoint will consider endoscopy to evaluate for any GIB. Would likely include EGD but not colonoscopy as will want to avoid moving her onto her side given her recent surgery Thank you for allowing us to participate in the care of this patient. Please call with any acute changes, questions or concerns. Please see addendum below with additional recommendation from my supervising physician. Supervising Physician Co-Signing Physician Notes consult for ? ugib. Patient is a transfer from another institution. Recent orthopedic interventions as documented above, including 2 hip operations now on eliquis for presumed dvt prophylaxis, ? history of nsaid use given recent hip surgeries. Admitted with anemia and ? dark stools though on iron. No overt bleeding noted when seeing the patient- ng tube is in place. Hemodynamically stable. Potential egd pending response to transfusion and clinical status, would need to hold blood thinner for 24-48 hours prior to egd to achieve adequate hemostasis as a ? ulcer may be the etiology her anemia and reports of melena though there are other reasons for her anemia (recent surgeries with potential blood loss into the joint/thigh) and also dark stools (iron). Agree with further plan of care as documented above - would rule out bleed into joint/thigh prior to an endoscopy. History of Present Illness Reason for Consultation: concern for UGIB Requesting Physician: Angelita Cee PA-C Attending Physician: Johann Hussein MD History of Present Illness This is 67-year-old female with PMH HTN, T2DM, HLD, mood disorder, history of breast cancer SP partial mastectomy, and others, admitted from outside hospital for suspected upper GI bleeding. Pertinent recent medical history includes a fall and hip fx, s/p right total hip replacement in [place] on 08/08/22. She was then admitted to [facility] after sustaining a fall on postop day 1. She was found to have a periprosthetic proximal femur fracture and underwent revision of right ESTUARDO with ORIF of hip fx 08/12/22. She had post-op anemia and required pRBC blood transfusion. She was DC'd to SNF 08/16; HGB was 8, BUN was 13. Since being at her SNF, she is being treated with Eliquis for DVT prophylaxis, last dose was last evening, as well as antibiotics for UTI. She has had an upset stomach, poor p.o. intake, nausea and fatigue, and she states she has had black loose stool for several days, but she is unable to quantify this or provide further details. She is on oral iron. She presented to an outside hospital, ([facility]), yesterday with abdominal pain, and was found to have severe anemia with hemoglobin of 4, BUN 57, creatinine 1.2. Lactate, INR and LFTs were normal. CTA of the abdomen and pelvis negative for acute GI bleed, and visualized abdominal vasculature appeared patent, however there was concern for fluid-filled esophagus, prominent fluid-filled ileal bowel loops, with mucosal enhancement, mesenteric fat stranding, concerning for enteritis. NG tube was placed and reportedly had 500 mL output of dark material. She was given 2 units of blood at that hospital, and as there is no GI coverage there, was transported to this hospital by air ambulance. Another unit of blood was given on the way and just finished this morning. Repeat hemoglobin is pending. Eliquis is being held and she is on a PPI gtt. VSS. C diff was negative at OSH; GI pathogen panel pending here. CXR nonacute. Here at [facility], she states she feels better. Abdominal pain is resolved. She feels better with the NG tube. Denies syncope but has been feeling lightheaded and fatigued lately. She cannot tell me the last time she had black stool. She has had no vomiting or hematemesis. She tells me she has not had much to eat in the last few days, has had an upset stomach. She states on a chronic basis she has a history of GERD and takes PPI intermittently. Denies a history of GI bleed. Denies a history of peptic ulcer disease. She states she has had at least one EGD and several colonoscopies in the past. Believes she had some colon polyps in the past. She is unable to provide specific details further than this. Denies history of peptic ulcer disease, or GI cancers. She thought she had a colonoscopy last year at [facility] however no record of endoscopy is in her [employer] chart or her [facility] chart. States her stools typically brown. Denies CP, SOB, dysphagia, fevers or chills. No EtOH, tobacco use. Takes aspirin daily Allergies Allergy/AdvReac Type Severity Reaction Status Date / Time dicyclomine Allergy Unknown rash Verified 08/31/22 09:18 bupropion AdvReac Unknown mood swings Verified 08/31/22 09:18 hyscyamine Allergy Unknown rash Uncoded 08/31/22 09:18 surgical tape AdvReac Unknown BROWN Uncoded 08/31/22 09:18 SURGICAL TAPE - rash Home Medications Medication Instructions Recorded Confirmed Type efkdkqa-[id number] 333 mg-133 2 tab PO DAILY 02/01/20 08/31/22 History mg-5 mg tablet fluoxetine 40 mg capsule (Prozac) 60 mg PO QAM 02/01/20 08/31/22 History hydrocodone 7.5 mg-acetaminophen 1 tab PO BID PRN Pain 02/01/20 08/31/22 History 325 mg tablet (Harmony) lactobacillus combination no.4 3 3,000 mmu cells PO DAILY 02/01/20 08/31/22 History billion cell capsule (Probiotic) meclizine 25 mg capsule 25 mg PO TID PRN Dizziness 02/01/20 08/31/22 History ondansetron HCl 4 mg tablet 4 mg PO Q6H PRN Nausea 02/01/20 08/31/22 History (Zofran) pantoprazole 40 mg tablet,delayed 40 mg PO DAILY PRN Acid Reflux 02/01/20 08/31/22 History release (Protonix) pioglitazone 30 mg tablet (Actos) 30 mg PO QAM 02/01/20 08/31/22 History simvastatin 20 mg tablet (Zocor) 20 mg PO HS 02/01/20 08/31/22 History amlodipine 5 mg tablet 5 mg PO DAILY 08/10/22 08/31/22 History buspirone 7.5 mg tablet 7.5 mg PO TID 08/10/22 08/31/22 History dicyclomine 10 mg capsule 10 mg PO QID 08/10/22 08/31/22 History lisinopril 20 mg tablet 20 mg PO DAILY 08/10/22 08/31/22 History apixaban 2.5 mg tablet (Eliquis) 2.5 mg PO BID 27 days #54 tabs 08/16/22 08/31/22 Rx cholecalciferol (vitamin D3) 25 1,000 unit PO DAILY #30 caps 08/16/22 08/31/22 Rx mcg (1,000 unit) capsule aspirin 81 mg tablet,delayed 81 mg PO DAILY 08/31/22 08/31/22 History release (Adult Low Dose Aspirin) ferrous sulfate 325 mg (65 mg 325 mg PO DAILY 08/31/22 08/31/22 History iron) capsule,extended release Patient History Medical History Acid reflux Age related osteoporosis OSTEOPEROSIS Anxiety and depression Diabetes mellitus, type II History of breast cancer LEFT, HX RADIATION History of fall JAN 03 2020TRIPPED OVER SOMETHING AT [facility] -INJURED SELF - NOT DX WITH 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 HTN (hypertension) Hyperlipidemia IBS (irritable bowel syndrome) Surgical History History of History of colonoscopy History of hysterectomy History of partial mastectomy of left breast History of reduction surgery of right breast History of surgery LEFT LEG X2 History of total left knee replacement S/P hip replacement Family History Mother Family history of diabetes mellitus Other Family history of diabetes mellitus in father Patient's father is Social History Smoking Status: Never smoker Second Hand Exposure: No; Do You Dip or Chew Tobacco: No; Hx Alcohol Use: No Hx Substance Use: No Preferred Language: French Communication Ability: Effective First Calender Worker Required: No Beliefs That Will Affect Care: None Current Living Situation: Family Current Living Situation Comment: SON AND DEANNA LIVE WITH PT Other Information That Helps Us Care for You: No Feels Safe at Home: Yes Safety Concerns: Feels Safe At This Time Assistive Devices: Cane, Denture - Upper, Glasses, Walker and Wheelchair Review of Systems Review of Systems: All systems reviewed & are unremarkable except as noted in HPI & below Physical Exam Constitutional: well developed (chronically ill) and comfortable; no acute distress Eyes: Sclera anicteric, no conjunctival injection ENMT: dry mucous membranes, + pallor. NGT in place; clamped Neck: trachea midline supple Respiratory: normal resp effort Cardiovascular: RRR, no murmur, no edema Gastrointestinal (Abdomen): normal bowel sounds, soft, nontender, no hepatosplenomegaly Inspection/Auscultation: abdomen not distended Grossly she has no melena, hematochezia on exam Musculoskeletal: R hip with surgical wounds intact; dry; no obvious bruising on the anterolateral aspect put pt lying supine and I didn't roll her Skin: no rashes, warm and dry Neurologic: alert and oriented x 3, no obvious focal neuro deficit Psychiatric: normal mood and affect Results & Data Vital Signs (Past 12 Hours) Vital Signs Temp Pulse Pulse Resp BP Pulse Ox O2 Del Method 08/31/22 09:00 93 H 08/31/22 09:45 91 H 134/67 88 L Room Air 08/31/22 09:15 126/71 99 Room Air 08/31/22 09:00 36.5 C 110/65 98 Room Air 08/31/22 08:50 87 08/31/22 08:45 Room Air 08/31/22 08:42 36.3 C L 16 116/72 99 Room Air Laboratory Results 08/31/22 08/31/22 08/31/22 Range/Units 10:50 10:50 10:50 WBC RBC (4.20-5.40) M/uL Hgb (12.0-16.0) g/dl Hct (37.0-47.0) % MCV (80.0-100.0) fL MCH (25.0-34.0) pg MCHC (32.0-36.0) g/dL RDW Std Deviation (36.4-46.3) fL RDW Coeff of Sunny (11.5-14.5) % Plt Count (130-400) K/uL MPV (9.4-12.4) fL PT INR Sodium Pending Potassium Pending Chloride Pending Carbon Dioxide Pending Anion Gap Pending BUN Pending Creatinine Pending Est Cr Clr Drug Dosing Pending Est GFR ( Amer) Pending Est GFR (Non-Af Amer) Pending BUN/Creatinine Ratio Pending Glucose Pending POC Glucose (70-99) mg/dl Lactate 1.6 (0.4-2.0) mmol/L Calcium Pending Total Bilirubin Pending AST Pending ALT Pending Alkaline Phosphatase Pending Troponin I High Sens Pending Total Protein Pending Albumin Pending Globulin Pending Albumin/Globulin Ratio Pending Blood Type Pending Antibody Screen Pending Crossmatch See Detail 08/31/22 08/31/22 08/31/22 Range/Units 10:50 10:50 08:39 WBC Pending RBC 3.12 L (4.20-5.40) M/uL Hgb 9.1 L (12.0-16.0) g/dl Hct 28.7 L (37.0-47.0) % MCV 92.0 (80.0-100.0) fL MCH 29.2 (25.0-34.0) pg MCHC 31.7 L (32.0-36.0) g/dL RDW Std Deviation 52.1 H (36.4-46.3) fL RDW Coeff of Sunny 17.2 H (11.5-14.5) % Plt Count 454 H (130-400) K/uL MPV 10.0 (9.4-12.4) fL PT Pending INR Pending Sodium Potassium Chloride Carbon Dioxide Anion Gap BUN Creatinine Est Cr Clr Drug Dosing Est GFR ( Amer) Est GFR (Non-Af Amer) BUN/Creatinine Ratio Glucose POC Glucose 209 H (70-99) mg/dl Lactate (0.4-2.0) mmol/L Calcium Total Bilirubin AST ALT Alkaline Phosphatase Troponin I High Sens Total Protein Albumin Globulin Albumin/Globulin Ratio Blood Type Antibody Screen Crossmatch Diagnostic Findings CXR: IMPRESSION: No acute process.
[2022-08-31 11:06] LABS: Hematocrit (blood only) 28.7 % (37.0-47.0); Hemoglobin 9.1 g/dl (12.0-16.0); Mean Corpuscular Hemoglobin 29.2 pg (25.0-34.0); Mean Corpuscular Hgb Conc 31.7 g/dL (32.0-36.0); Platelet Count 454 K/uL (130-400); RDW Coefficient of Variation 17.2 % (11.5-14.5); RDW Standard Deviation 52.1 fL (36.4-46.3); Red Blood Count 3.12 M/uL (4.20-5.40)
[2022-08-31 11:22] LABS: Albumin Globulin Ratio 1.2 (0.9-2); Albumin Level 3.1 gm/dl (3.4-5.0); BUN Creatinine Ratio 45.4 (10-20); Bilirubin,Total 1.3 mg/dl (0.2-1.0); Calcium 8.3 mg/dl (8.6-10.3); Creatinine Clr Calc Pharmacy 59.5 ml/min; Est GFR (African American) 61.5 ml/min; Est GFR (Non-African American) 53.1 ml/min; Globulin 2.5 gm/dl (2.5-4.0); Potassium 3.5 mmol/L (3.5-5.1); Total Protein 5.6 gm/dl (6.0-8.3)
[2022-08-31 11:25] LABS: Troponin I High Sensitivity 5.8 pg/ml (0-14)
[2022-08-31 11:29] LABS: Nucleated RBC # (auto) 0.67 K/uL (0-0.12); Nucleated RBC % (auto) 14.8 %; White Blood Count 4.53 K/ul (4.8-10.8)
--- NOTE | 2022-08-31 11:32 | Communication Note ---
Date of Service: August 31, 2022 Patient is a 67-year-old white female known to our practice who is status post revision right ESTUARDO by Dr. Krishnamurthy on 08/12/2022. Patient initially had a right total hip arthroplasty done on 08/10/[address] Krishnamurthy but patient ended up developing a periprosthetic femur fracture. Patient underwent surgery as noted on 12 August and was discharged by 08/16/2022. Pt was on Eliquis 2.5mg bid for dvt prophylaxis. Plans were for her to follow-up with Dr. Krishnamurthy in 2 weeks to have her deyanira removed and for wound check. This apparently did not happen. Patient now readmitted with upper GI bleed. Patient continues to have her deyanira present and we have been asked to review her wound. Currently the patient is sleeping upon arrival but is easily awoken. Patient states she is very tired. No other complaints at this time. On examination of her right hip, she has a well-healed incision with deyanira present. There is no drainage noted. No overt erythema noted. Thigh with swelling but no overall complaints on palpation. Hematoma/Seroma would not be unusual at this point secondary to 2 surgeries in close proximity of one another. Plan to discontinue deyanira today and Steri-Strip wound. I will inform Dr. Krishnamurthy of the patient's admission.
[2022-08-31 11:34] LABS: Basophils # (auto) 0.01 K/uL (0-0.2); Basophils % (auto) 0.2 %; Immature Granulocytes # (auto) 0.07 K/uL (0.01-0.20); Immature Granulocytes % (auto) 1.5 %; Lymphocytes # (auto) 0.55 K/uL (1.2-3.4); Lymphocytes % (auto) 12.1 %; Monocytes # (auto) 0.68 K/uL (0.11-0.59); Neutrophils # (auto) 3.22 K/uL (1.40-6.50); Neutrophils % (auto) 71.2 %; Polychromasia 2+; Toxic Vacuolation 1+
[2022-08-31] MEDS: INSULIN ASPART PER UNIT CHARGE SC SCH ×2 (12:48→16:55)
[2022-08-31] MEDS: LANTUS PER UNIT CHARGE SQ SCH (12:48)
[2022-08-31] MEDS: LACTATED RINGER'S 1,000 ML IV SCH (12:49)
--- NOTE | 2022-08-31 13:51 | CT Scan Report ---
CT hip RT wo con HISTORY: 67 years-old Female r/o bleeding acute right hip pain with recent surgery COMPARISON: 08/12/2022 TECHNIQUE: Multiple axial CT images of the right hip were obtained without the use of IV contrast. A dose lowering technique was used consistent with the principals of BRE. FINDINGS: Total joint arthroplasty of the right hip with elongated femoral stem, proximal diaphyseal cerclage w ires with lateral fixation plate. Unchanged alignment of the acute/subacute periprosthetic fracture w ithout significant interval bony healing. Mild persistent displacement and comminution. No additional acute fracture or dislocation identified. Contrast in the rectum. Contrast in the partially decompressed urinary bladder with associated Lang catheter. Streak artifact from the hardware limits evaluation of the adjacent tissues. There is moder ate lateral subcutaneous edema/hemorrhage. No discrete drainable fluid collection. Lateral skin thick ening. IMPRESSION: 1. Right hip arthroplasty. Unchanged alignment of the acute fixated periprosthetic right femoral frac ture with lateral skin deyanira and subcutaneous edema versus hemorrhage. 2. No discrete drainable fluid collection. ACT 112: Negative or not required by law. The above report was generated using voice recognition software. It may contain grammatical, syntax o r spelling errors. Electronically signed by: Budyd Rod M.D. 08/31/2022 1:49 PM
--- NOTE | 2022-08-31 14:42 | Anesthesiology Consultation ---
Date of Service August 31, 2022 Assessment & Plan (1) Encounter for pre-operative examination: Chart Review Chart Review: Acceptable Risk for Surgery, Patient NOT seen in Pre Admission Testing and bag sorter initiated Consults Requested none History Surgery Operation Date: 09/01/22 16:30 Proposed Procedures p Esophagogastroduodenoscopy Dr. Wing Dimas MD Height/Weight Height: 5 ft 5 in Weight: 100.783 kg Allergies Allergy/AdvReac Type Severity Reaction Status Date / Time dicyclomine Allergy Unknown rash Verified 08/31/22 09:18 bupropion AdvReac Unknown mood swings Verified 08/31/22 09:18 hyscyamine Allergy Unknown rash Uncoded 08/31/22 09:18 surgical tape AdvReac Unknown BROWN Uncoded 08/31/22 09:18 SURGICAL TAPE - rash Medications Home Medications Medication Instructions Recorded Confirmed Last Taken oeqxsee-ybrtrjrms-jasn 333 mg-133 2 tab PO DAILY 02/01/20 08/31/22 02/17/20 mg-5 mg tablet fluoxetine 40 mg capsule (Prozac) 60 mg PO QAM 02/01/20 08/31/22 02/18/20 04:30 hydrocodone 7.5 mg-acetaminophen 1 tab PO BID PRN Pain 02/01/20 08/31/22 Unknown 325 mg tablet (Bisbee) lactobacillus combination no.4 3 3,000 mmu cells PO DAILY 02/01/20 08/31/22 02/17/20 billion cell capsule (Probiotic) meclizine 25 mg capsule 25 mg PO TID PRN Dizziness 02/01/20 08/31/22 Unknown ondansetron HCl 4 mg tablet 4 mg PO Q6H PRN Nausea 02/01/20 08/31/22 Unknown (Zofran) pantoprazole 40 mg tablet,delayed 40 mg PO DAILY PRN Acid Reflux 02/01/20 08/31/22 02/17/20 release (Protonix) pioglitazone 30 mg tablet (Actos) 30 mg PO QAM 02/01/20 08/31/22 02/17/20 simvastatin 20 mg tablet (Zocor) 20 mg PO HS 02/01/20 08/31/22 02/17/20 amlodipine 5 mg tablet 5 mg PO DAILY 08/10/22 08/31/22 Unknown buspirone 7.5 mg tablet 7.5 mg PO TID 08/10/22 08/31/22 Unknown dicyclomine 10 mg capsule 10 mg PO QID 08/10/22 08/31/22 Unknown lisinopril 20 mg tablet 20 mg PO DAILY 08/10/22 08/31/22 Unknown apixaban 2.5 mg tablet (Eliquis) 2.5 mg PO BID 27 days #54 tabs 08/16/22 08/31/22 Unknown cholecalciferol (vitamin D3) 25 1,000 unit PO DAILY #30 caps 08/16/22 08/31/22 Unknown mcg (1,000 unit) capsule aspirin 81 mg tablet,delayed 81 mg PO DAILY 08/31/22 08/31/22 Unknown release (Adult Low Dose Aspirin) ferrous sulfate 325 mg (65 mg 325 mg PO DAILY 08/31/22 08/31/22 Unknown iron) capsule,extended release Active Medications Generic Name Dose Route Start Last Admin Trade Name Freq PRN Reason Stop Dose Admin Pantoprazole Sodium 40 mg/ 100 mls @ 20 mls/hr 08/31/22 09:00 08/31/22 14:30 Dextrose IV 09/30/22 08:59 8 mg/hr Q5H BARB 20 mls/hr Administration 8 MG/HR Lactated Ringer's 1,000 mls @ 80 mls/hr 08/31/22 11:30 08/31/22 12:49 Lr IV 09/30/22 11:29 80 mls/hr .[id number] BARB Administration Insulin Aspart 0 units 08/31/22 11:30 08/31/22 12:48 Insulin Aspart Per Unit Charge SC 09/30/22 11:29 6 units ACHS BARB Administration Insulin Glargine 0 units 08/31/22 11:30 08/31/22 12:48 Lantus Per Unit Charge SQ 09/30/22 11:29 8 units Q12H BARB Administration Protocol Past Medical History Medical History (Updated 08/31/22 @ 14:44 by Oniel Cannon MD) Acid reflux Age related osteoporosis OSTEOPEROSIS Anxiety and depression Diabetes mellitus, type II Encounter for pre-operative examination History of breast cancer LEFT, HX RADIATION History of fall JAN 03 2020TRIPPED OVER SOMETHING AT [facility] [place] -INJURED SELF - NOT DX WITH 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 HTN (hypertension) Hyperlipidemia IBS (irritable bowel syndrome) Past Family History Family History Mother Family history of diabetes mellitus Other Family history of diabetes mellitus in father Patient's father is Past Surgical History Surgical History History of History of colonoscopy History of hysterectomy History of partial mastectomy of left breast History of reduction surgery of right breast History of surgery LEFT LEG X2 History of total left knee replacement S/P hip replacement Social History Smoking Status: Never smoker Do You Dip or Chew Tobacco: No Hx Alcohol Use: No Hx Substance Use: No substance use type: does not use Physical Exam Vital Signs Last Vital Signs Temp 36.5 C 08/31/22 12:10 Pulse 91 H 08/31/22 09:45 Resp 16 08/31/22 12:10 BP 133/87 08/31/22 12:10 Pulse Ox 98 08/31/22 12:10 O2 Del Method Room Air 08/31/22 12:10 Testing Laboratory Results 08/31/22 10:50 08/31/22 10:50 Blood Type A Positive 08/31/22 10:50 Antibody Screen NEGATIVE 08/31/22 10:50 08/31/22 08/31/22 12:33 08:39 POC Glucose 181 H 209 H Electrocardiogram Date: 08/10/22 Test Reason : Blood Pressure : / mmHG Vent. Rate : 082 BPM Atrial Rate : 082 BPM P-R Int : 142 ms QRS Dur : 086 ms QT Int : 410 ms P-R-T Axes : 043 020 030 degrees QTc Int : 479 ms Normal sinus rhythm Nonspecific ST abnormality Abnormal ECG When compared with ECG of 16-JUN-2017 12:29, Nonspecific T wave abnormality now evident in Inferior leads Confirmed by Oniel Agustin ([id number]) on 08/10/2022 8:29:07 PM Chest X-Ray Date: 08/31/22 XR chest 1V portable HISTORY: 67 years-old Female admit, s/p transfusion acute shortness of breath COMPARISON: 08/10/2022 TECHNIQUE: AP view of the chest FINDINGS: Distal tip of enteric tube courses below the diaphragm outside the field of view. Cardiac silhouette is enlarged. No pneumothorax, pleural effusion, airspace consolidation or pulmonary edema. Surgical clips project over the left chest wall. IV catheter projects over the right axilla. Bones appear grossly intact. IMPRESSION: No acute process.
[2022-08-31 16:27] LABS: Appearance Urine Clear (Clear); Bacteria Urine Automated Negative (Negative); Bilirubin Urine Negative (Negative); Blood Urine Negative (Negative); Color Urine Yellow; Epithelial Cell Urine Auto >30 /lpf (0-5); Glucose Urine UA Negative (Negative); Ketones Urine Negative (Negative); Leukocyte Esterase Urine Trace (Negative); Nitrite Urine Negative (Negative); Protein Urine Negative (Negative); RBC Urine Automated 0-4 /hpf (0-4); Specific Gravity Urine 1.031 (1.000-1.030); Urobilinogen Urine Negative (Negative); pH Urine 5.5 (4.5-7.5)
[2022-08-31 17:16] LABS: Hemoglobin 8.1 g/dl (12.0-16.0)
[2022-08-31 19:15] LABS: Prothrombin Time 10.6 Seconds (9.0-12.0)
[2022-08-31] MEDS ORDERED: Nursing to Pharmacy Communication SCH (19:15)
[2022-09-01] MEDS: LANTUS PER UNIT CHARGE SQ SCH ×3 (00:15→22:55)
[2022-09-01] MEDS: LACTATED RINGER'S 1,000 ML IV SCH ×2 (00:15→12:58)
[2022-09-01] MEDS: INSULIN ASPART PER UNIT CHARGE SC SCH ×5 (00:16→20:45)
[2022-09-01] MEDS: PANTOprazole 40 MG in DEXTROSE 5% 100 ML IV SCH ×5 (00:16→22:52)
[2022-09-01 07:02] LABS: Hematocrit (blood only) 24.9 % (37.0-47.0); Hemoglobin 7.8 g/dl (12.0-16.0); Mean Corpuscular Hgb Conc 31.3 g/dL (32.0-36.0); Mean Corpuscular Volume 92.6 fL (80.0-100.0); Mean Platelet Volume 9.9 fL (9.4-12.4); Nucleated RBC # (auto) 0.11 K/uL (0-0.12); Nucleated RBC % (auto) 2.7 %; Platelet Count 435 K/uL (130-400); RDW Standard Deviation 56.6 fL (36.4-46.3); Red Blood Count 2.69 M/uL (4.20-5.40); White Blood Count 4.01 K/ul (4.8-10.8)
[2022-09-01 07:18] LABS: Basophils # (auto) 0.01 K/uL (0-0.2); Basophils % (auto) 0.2 %; Eosinophils # (auto) 0.02 K/uL (0-0.50); Eosinophils % (auto) 0.5 %; Immature Granulocytes # (auto) 0.06 K/uL (0.01-0.20); Immature Granulocytes % (auto) 1.5 %; Lymphocytes # (auto) 0.81 K/uL (1.2-3.4); Lymphocytes % (auto) 20.2 %; Monocytes # (auto) 0.69 K/uL (0.11-0.59); Monocytes % (auto) 17.2 %; Neutrophils # (auto) 2.42 K/uL (1.40-6.50); Neutrophils % (auto) 60.4 %; Polychromasia 2+
[2022-09-01 07:22] LABS: Albumin Globulin Ratio 1.3 (0.9-2); Albumin Level 2.9 gm/dl (3.4-5.0); BUN Creatinine Ratio 44.7 (10-20); Creatinine Clr Calc Pharmacy 75.6 ml/min; Est GFR (African American) 82.2 ml/min; Est GFR (Non-African American) 70.9 ml/min; Globulin 2.2 gm/dl (2.5-4.0); Magnesium 2.3 mg/dl (1.7-2.4); Potassium 3.5 mmol/L (3.5-5.1); Total Protein 5.1 gm/dl (6.0-8.3)
[2022-09-01] MEDS ORDERED: LIDOCAINE 2% 2 ML VIAL/AMP(20MG/ML) INFIL ONE (09:37)
[2022-09-01] MEDS ORDERED: PROPOFOL IV EMULSION 10 MG/ML 20 ML VIAL IV ONE (09:37)
--- NOTE | 2022-09-01 10:23 | Gastroenterology Progress Note ---
Date of Service September 01, 2022 Assessment & Plan (1) Periprosthetic fracture around internal prosthetic right hip joint: (2) Severe anemia: (3) Black stool: Plan 67 y/o female w/ recent fall and R hip fx s/p ESTUARDO 08/08, then had another fall and had periprosthetic proximal femur fracture s/p revision R ESTUARDO w/ ORIF 08/12, on Eliquis for DVT ppx and ABX for UTI. Now admitted from OSH w/ several days of black diarrhea, nausea, fatigue, abd pain, with severe anemia with HGB 8->4, s/p pRBC transfusion x 3, elevated BUN. CTA suggestive of enteritis, ? SB/esophageal dilation and s/p NGT placement. Pt feels improved s/p NGT and pRBC. Blood ct stable w Hgb around 8 in the last 2 days. No melena reported. CT hip yesterday which subcutaneous edema vs hemorrhage. On exam, R hip w edema on soft tissue wo large hematoma noted. - NPO for EGD by Dr. Dimas to r/o PUD - Send stool for GI Pathogen panel - r/o infectious etiology - Continue PPI gtt - Would continue NGT in place for now - Monitor and document GI output Trend H&H, transfuse as needed - Hold [facility] Admission and Anticipated Discharge Date Admission Date: August 31, 2022 Subjective Patient denies abdominal pain, nausea or vomiting. Blood count stable with hemoglobin around 7.8 Review of Systems Review of Systems: All systems reviewed & are unremarkable except as noted in HPI & below Physical Exam Constitutional: WD/WN, vitals as above well groomed, cooperative and comfortable Eyes: PERRL, conjunctivae normal, anicteric sclerae ENMT: external ear and nose normal, oropharynx normal (NGT wo suction in place) Respiratory: normal respiratory effort, lungs clear to auscultation Cardiovascular: RRR, no murmur, no edema Gastrointestinal (Abdomen): Soft, non tender, BS hypoactive Skin: no rashes, warm and dry (R hip surgical site w steri strips in place, + edema on soft tissue.) no jaundice Neurologic: Motor/Sensory: no asterixis Psychiatric: A+Ox3, euthymic affect Lymphatic: no lymphedema Results & Data Vital Signs (Past 12 Hours) Vital Signs Temp Pulse Resp BP Pulse Ox O2 Del Method 09/01/22 09:58 36.5 C 92 H 16 169/97 H 98 Room Air 09/01/22 08:00 36.6 C 78 18 140/66 97 Room Air 09/01/22 03:38 36.4 C L 90 18 134/73 98 Room Air 08/31/22 22:51 36.9 C 93 H 18 128/71 98 Room Air
--- NOTE | 2022-09-01 10:23 | History & Physical Bridge Note ---
Date of Service September 01, 2022 History & Physical Bridge Note I have examined the patient, reviewed the History & Physical and in the interval since the performance of the History & Physical I have noted the following changes of clinical significance: no changes noted Supervising Physician Co-Signing Physician Notes Patient feeling better than yesterday ng tube in, obese abdomen but soft hgb 7 range, slight bun rise egd today
--- NOTE | 2022-09-01 10:53 | GI REPORT ---
Patient Name: Tonja Velez Procedure Date: 09/01/2022 10:23 AM Date of : 1955 Admit Type: Inpatient Age: 67 Gender: Female Attending MD: Pau Dimas M.d., Procedure: Upper GI endoscopy Providers: Pau Dimas M.d. Referring MD: Kyaw Choi Indications: Anemia Medicines: See the Anesthesia note for documentation of the administered medications Complications: No immediate complications. Estimated Blood Loss: Estimated blood loss: none. Procedure: Pre-Anesthesia Assessment: - Patient identification and proposed procedure were verified prior to the procedure by the physician, the nurse and the anesthesiologist. The procedure was verified in the pre-procedure area. - Prior to the procedure, a History and Physical was performed, and patient medications, allergies and sensitivities were reviewed. The patient's tolerance of previous anesthesia was reviewed. - The risks and benefits of the procedure and the sedation options and risks were discussed with the patient. All questions were answered and informed consent was obtained. After obtaining informed consent, the endoscope was passed under direct vision. Throughout the procedure, the patient's blood pressure, pulse, and oxygen saturations were monitored continuously. The Scope was introduced through the mouth and advanced to the second part of duodenum. The upper GI endoscopy was accomplished without difficulty. The patient tolerated the procedure well. Findings: The examined esophagus appeared normal. NG tube present. The Z-line appeared regular. Localized mild inflammation characterized by erythema was found in the gastric fundus. NG tube present into the mid stomach. The examined stomach appeared normal. Localized mildly erythematous mucosa without active bleeding and with no stigmata of bleeding was found in the duodenal bulb. The second portion of the duodenum appeared normal. Impression: - Normal esophagus. - Z-line regular. - Normal stomach. - Gastritis in the proximal stomach. - Erythematous mucosa in the bulb - Normal second portion of the duodenum. Recommendation: - NG tube has been removed. - Antral gastritis and duodenitis. - IV ppi for 24-48 hours. Jared Brand M.d. 09/01/2022 10:52:58 AM This report has been signed electronically. Note Initiated On: 09/01/2022 10:23 AM Number of Addenda: 0 I attest to the content of the Intraoperative Record and orders documented therein, exceptions below {[id number]}
--- NOTE | 2022-09-01 10:55 | Communication Note ---
Date of Service: September 01, 2022 EGD completed with findings of gastritis in the proximal stomach, and mild duodenal bulbar inflammation. No overt ulceration noted. Anemia may be multifactorial given reports of ?blood in her hip. Would continue with IV PPI for 24-48 hours, ideally hold blood thinners during this period- if no further bleeding, then transition to po and resume blood thin ners. GI will sign off. No plans for colonoscopy at this time given her recent hip surgeries.
--- NOTE | 2022-09-01 11:02 | Communication Note ---
Date of Service: September 01, 2022 Results of the endoscopy were discussed with the patient in the recovery area. From gi perspective - she can drink/advance diet tolerated - would defer to [facility] team on when to resume if other procedures planned.
--- NOTE | 2022-09-01 12:57 | Anesthesiology Progress Note ---
Date of Service September 01, 2022 Anesthesia Post Procedure Vital Signs Vital Signs: Temp Pulse Pulse Resp BP Pulse Ox O2 Del Method 09/01/22 11:18 89 16 117/60 97 Room Air 09/01/22 11:05 85 16 117/54 L 98 Room Air 09/01/22 10:52 95 H 16 107/61 98 Room Air 09/01/22 09:58 36.5 C 92 H 16 169/97 H 98 Room Air 09/01/22 08:00 36.6 C 78 18 140/66 97 Room Air 09/01/22 03:38 36.4 C L 90 18 134/73 98 Room Air 08/31/22 22:51 36.9 C 93 H 18 128/71 98 Room Air 08/31/22 19:20 36.4 C L 87 18 129/76 99 Room Air 08/31/22 16:30 36.6 C 90 18 126/76 97 Room Air 08/31/22 16:10 89 Transfer of Care Handoff Completed per policy Notes Mental Status: alert / awake / arousable and participated in evaluation Patient Amnestic to Procedure: Yes Nausea / Vomiting: adequately controlled Pain: adequately controlled Airway Patency, RR, SpO2: stable & adequate BP & HR: stable & adequate Hydration State: stable & adequate Anesthetic Complications: no major complications apparent
--- NOTE | 2022-09-01 14:59 | Hospitalist Progress Note ---
Date of Service September 01, 2022 Assessment & Plan (1) UGIB (upper gastrointestinal bleed): (2) Acute blood loss anemia: (3) Periprosthetic fracture around internal prosthetic right hip joint: (4) Age related osteoporosis: (5) Diabetes mellitus, type II: (6) HTN (hypertension): (7) Hyperlipidemia: Plan This is a 67yo F with PMH of HTN, DM II, HLD, mood disorder, h/o breast cancer s/p partial mastectomy and other medical problems who presents to ED from outside hospital for suspected upper GI bleeding. Pt presented to [facility] from [facility] due to abd pain, nausea, fatigue. Hgb 4.0, received 2 units PRBC and IV lasix. En route via life flight received additional [address] a/p at OSH revealed enteritis but evidence of bleed, or obstruction. NGT placed due to possible gastric distension and dark black material that was positive for occult blood was removed. Pt on eliquis for dvt ppx s/p R hip surgery. UGIB Acute blood loss anemia Pt admitted to PCU Hgb at d/c was 8.0, hgb at OSH 4.0 earlier on the day of admission Received 3 total units of PRBC so far and 1 dose of IV lasix in route Continue PPI bolus and gtt NGT in place for now, not to suction, ok per GI Hemoglobin on admission was 9.1 and today it has been 7.8 which is in part dilutional No more evidence of bleeding Appreciate GI input and EGD which showed gastritis in the proximal stomach, erythematous mucosa in the duodenal bulb if without any evidence of active bleeding Advised to have PPI drip for 24 to 48 hours and then start on a diet We will monitor CBC Diarrhea/Enteritis per OSH CT Stool for cdiff negative at OSH Will repeat stool studies-not being sent yet No more diarrhea No antibiotics Recent UTI pt with E. coli UTI on 08/17. Treated with bactrim/macrobid but pt refused due to upset stomach received 1g rocephin at OSH obtain UA-negative and urine culture has been growing 3 types of organisms Blood cultures pending gloria cath in place will need exchanged Periprosthetic fracture of right prosthetic hip joint status postrepair on 08/12 Toe-touch weightbearing to right lower extremity Bet[place] still intact Discussed with Fidel Natarajan for them to eval while in house Appreciate Ortho input and recommendation CT of the pelvis did not show any significant bleeding but normal fluid collection around the replaced joint Betito were removed T2DM Last A1c 5.7 Hold Actos NovoLog per protocol Hypertension Hold amlodipine and lisinopril for now in setting of GI bleed Depression/anxiety/mood disorder Continue BuSpar and fluoxetine when able to tolerate p.o. DVT prophylaxis: SCD, D/C apixaban FULL CODE PCP: Reid We will get PT and OT evaluation May need placement Admission and Anticipated Discharge Date Admission Date: August 31, 2022 Subjective 09/01/2022 The patient was seen and examined in telemetry unit She is a status post EGD and remains weak and lethargic but denies any significant symptoms Denies any chest pain, palpitation or shortness of breath No significant bleeding from the GI tract Review of Systems Review of Systems: All systems reviewed and are unremarkable except as noted below Physical Exam Physical Exam: Lying in bed comfortably but looks pale Constitutional: well developed, well nourished, + ill appearing and + obese Eyes: PERRL, conjunctivae normal, anicteric sclerae ENMT: external ear and nose normal, oropharynx normal Neck: trachea midline, no thyromegaly Respiratory: no respiratory distress Auscultation: lungs clear to auscultation bilaterally Cardiovascular: Rate/Rhythm: regular rate and regular rhythm; not tachycardic Heart Sounds: normal S1 and normal S2; no murmur Extremities: + edema (Trace edema bilaterally) Gastrointestinal (Abdomen): Inspection/Auscultation: normal bowel sounds; abdomen not distended Percussion/Palpation: abdomen soft; abdomen nontender Musculoskeletal: No acute arthritis involving any joint Neurologic: normal touch/pain/proprioception and moves all extremities; no focal motor deficits Lymphatic: no cervical or axillary lymphadenopathy Results & Data Results & Data Vital Signs (Past 12 Hours) Vital Signs Temp Pulse Resp BP Pulse Ox O2 Del Method 09/01/22 11:18 89 16 117/60 97 Room Air 09/01/22 11:05 85 16 117/54 L 98 Room Air 09/01/22 10:52 95 H 16 107/61 98 Room Air 09/01/22 09:58 36.5 C 92 H 16 169/97 H 98 Room Air 09/01/22 08:00 36.6 C 78 18 140/66 97 Room Air 09/01/22 03:38 36.4 C L 90 18 134/73 98 Room Air Laboratory Results Short CBC 08/31/22 09/01/22 Range/Units 16:49 05:45 WBC 4.01 L (4.8-10.8) K/ul Hgb 8.1 L 7.8 L (12.0-16.0) g/dl Hct 25.0 L 24.9 L (37.0-47.0) % Plt Count 435 H (130-400) K/uL BMP 09/01/22 05:45 Sodium 137 Potassium 3.5 Chloride 106 Carbon Dioxide 23 BUN 38 H Creatinine 0.85 Glucose 115 H Calcium 8.0 L Liver Function 09/01/22 Range/Units 05:45 Total Bilirubin 1.0 (0.2-1.0) mg/dl AST 13 (13-39) U/L ALT 8 (7-52) U/L Alkaline Phosphatase 58 (34-104) U/L Albumin 2.9 L (3.4-5.0) gm/dl Urine 08/31/22 Range/Units 15:50 Urine Color Yellow Urine Appearance Clear (Clear) Urine pH 5.5 (4.5-7.5) Ur Specific [place] 1.031 H (1.000-1.030) Urine Protein Negative (Negative) Urine Glucose (UA) Negative (Negative) Medications Administered Current Inpatient Medications Acetaminophen (Acetaminophen 325 Mg Tab) 650 mg PO Q4H PRN PRN Reason: Pain or Fever Stop: 09/30/22 08:48 Al Hydrox/Mg Hydrox/Simethicone (Aluminum/Magnesium Susp 30 Ml Udc) 15 ml PO Q4H PRN PRN Reason: Dyspepsia Stop: 09/30/22 08:48 Dextrose (Dextrose 50% 50 Ml Syringe) 25 - 50 ml IV UD PRN; Protocol PRN Reason: Hypoglycemia Protocol Stop: 09/30/22 09:32 Glucagon (Glucagon For Inj 1 Mg Vial) 1 mg SQ UD PRN; Protocol PRN Reason: Hypoglycemia Protocol Stop: 09/30/22 09:32 Glucose (Glucose 10 Tab/Tube) 4 - 8 tab PO UD PRN; Protocol PRN Reason: Hypoglycemia Treatment Stop: 09/30/22 09:32 Glucose (Glucose 40% Gel 15 Gm Tube) 15 - 30 gm PO UD PRN; Protocol PRN Reason: Hypoglycemia Protocol Stop: 09/30/22 09:32 Pantoprazole Sodium 40 mg/ (Dextrose) 100 mls @ 20 mls/hr IV Q5H [facility] Stop: 09/30/22 08:59 Last Admin: 09/01/22 12:52 Dose: 8 mg/hr, 20 mls/hr Acetaminophen (Ofirmev) 1,000 mg in 100 mls @ 400 mls/hr IV Q8H PRN PRN Reason: pain 1-6 Stop: 09/03/22 10:06 Lactated Ringer's (Lr) 1,000 mls @ 80 mls/hr IV .[id number] [facility] Stop: 09/30/22 11:29 Last Admin: 09/01/22 12:58 Dose: 80 mls/hr Insulin Aspart (Insulin Aspart Per Unit Charge) 0 units SC Q6 BARB Stop: 09/30/22 11:29 Last Admin: 09/01/22 12:53 Dose: 1 units Insulin Glargine (Lantus Per Unit Charge) 0 units SQ Q12H [facility]; Protocol Stop: 09/30/22 11:29 Last Admin: 09/01/22 12:54 Dose: 4 units Miscellaneous (Carbohydrates For Hypoglycemia ) 15 - 30 gm PO UD PRN PRN Reason: Hypoglycemia Protocol Stop: 09/30/22 09:32 Morphine Sulfate (Morphine Sulfate 2 Mg/Ml Carp) 2 mg IV Q4H PRN PRN Reason: severe pain 7-10 Stop: 09/14/22 10:06 Ondansetron HCl (Ondansetron Inj 2 Mg/Ml 2 Ml Vial) 4 mg IV Q6H PRN PRN Reason: Nausea Stop: 09/30/22 08:48
[2022-09-01] MEDS ORDERED: Nursing to Pharmacy Communication SCH (17:00)
[2022-09-01] MEDS: MELATONIN 3 MG TAB PO PRN (21:22)
[2022-09-02] MEDS: LACTATED RINGER'S 1,000 ML IV SCH ×2 (00:07→11:09)
[2022-09-02] MEDS: PANTOprazole 40 MG in DEXTROSE 5% 100 ML IV SCH ×5 (04:05→22:43)
[2022-09-02 06:45] LABS: Hematocrit (blood only) 23.8 % (37.0-47.0); Hemoglobin 7.4 g/dl (12.0-16.0); Mean Corpuscular Hemoglobin 28.6 pg (25.0-34.0); Mean Corpuscular Hgb Conc 31.1 g/dL (32.0-36.0); Mean Corpuscular Volume 91.9 fL (80.0-100.0); Mean Platelet Volume 9.4 fL (9.4-12.4); Nucleated RBC # (auto) 0.02 K/uL (0-0.12); Nucleated RBC % (auto) 0.5 %; Platelet Count 374 K/uL (130-400); RDW Coefficient of Variation 16.9 % (11.5-14.5); RDW Standard Deviation 55.5 fL (36.4-46.3); Red Blood Count 2.59 M/uL (4.20-5.40); White Blood Count 4.39 K/ul (4.8-10.8)
[2022-09-02 07:11] LABS: Eosinophils # (auto) 0.15 K/uL (0-0.50); Eosinophils % (auto) 3.4 %; Hypochromasia Present; Immature Granulocytes # (auto) 0.08 K/uL (0.01-0.20); Immature Granulocytes % (auto) 1.8 %; Lymphocytes # (auto) 1.02 K/uL (1.2-3.4); Lymphocytes % (auto) 23.2 %; Monocytes # (auto) 0.67 K/uL (0.11-0.59); Monocytes % (auto) 15.3 %; Neutrophils # (auto) 2.47 K/uL (1.40-6.50); Neutrophils % (auto) 56.3 %; Polychromasia 1+
[2022-09-02] MEDS: INSULIN ASPART PER UNIT CHARGE SC SCH ×4 (07:54→21:02)
[2022-09-02 08:08] LABS: Calcium 7.8 mg/dl (8.6-10.3); Potassium 3.5 mmol/L (3.5-5.1)
[2022-09-02 08:14] LABS: BUN Creatinine Ratio 30.6 (10-20); Creatinine Clr Calc Pharmacy 103.9 ml/min; Est GFR (African American) 108.1 ml/min; Est GFR (Non-African American) 93.3 ml/min
[2022-09-02] MEDS: LANTUS PER UNIT CHARGE SQ SCH ×2 (11:47→22:43)
[2022-09-02] MEDS ORDERED: SODIUM CHLORIDE 0.9% 250 ML IV PRN (15:51)
[2022-09-02] MEDS: MELATONIN 3 MG TAB PO PRN (22:44)
[2022-09-03] MEDS: LACTATED RINGER'S 1,000 ML IV SCH ×2 (02:43→15:06)
[2022-09-03] MEDS: PANTOprazole 40 MG in DEXTROSE 5% 100 ML IV SCH ×4 (03:53→19:23)
[2022-09-03 07:44] LABS: Basophils # (auto) 0.04 K/uL (0-0.2); Basophils % (auto) 0.6 %; Eosinophils # (auto) 0.21 K/uL (0-0.50); Eosinophils % (auto) 3.3 %; Hematocrit (blood only) 28.7 % (37.0-47.0); Hemoglobin 8.8 g/dl (12.0-16.0); Immature Granulocytes # (auto) 0.11 K/uL (0.01-0.20); Immature Granulocytes % (auto) 1.7 %; Lymphocytes # (auto) 0.87 K/uL (1.2-3.4); Lymphocytes % (auto) 13.5 %; Mean Corpuscular Hemoglobin 28.4 pg (25.0-34.0); Mean Corpuscular Hgb Conc 30.7 g/dL (32.0-36.0); Mean Corpuscular Volume 92.6 fL (80.0-100.0); Mean Platelet Volume 9.6 fL (9.4-12.4); Monocytes # (auto) 0.78 K/uL (0.11-0.59); Monocytes % (auto) 12.1 %; Neutrophils # (auto) 4.42 K/uL (1.40-6.50); Neutrophils % (auto) 68.8 %; Platelet Count 334 K/uL (130-400); RDW Coefficient of Variation 18.1 % (11.5-14.5); RDW Standard Deviation 59.9 fL (36.4-46.3); White Blood Count 6.43 K/ul (4.8-10.8)
[2022-09-03 07:51] LABS: Calcium 7.6 mg/dl (8.6-10.3); Potassium 3.4 mmol/L (3.5-5.1)
[2022-09-03 07:57] LABS: BUN Creatinine Ratio 16.4 (10-20); Est GFR (African American) 112.5 ml/min; Est GFR (Non-African American) 97.1 ml/min
[2022-09-03] MEDS ORDERED: POTASSIUM CHLORIDE CRTAB 20 MEQ TABCR PO STA (08:13)
[2022-09-03] MEDS: INSULIN ASPART PER UNIT CHARGE SC SCH ×4 (09:08→21:06)
[2022-09-03] MEDS: LANTUS PER UNIT CHARGE SQ SCH ×2 (12:18→22:47)
[2022-09-03] MEDS: MoRPHine SULFATE 2 MG/ML CARP IV PRN (14:23)
--- NOTE | 2022-09-03 14:26 | Hospitalist Progress Note ---
Date of Service September 02, 2022 Assessment & Plan (1) UGIB (upper gastrointestinal bleed): (2) Acute blood loss anemia: (3) Periprosthetic fracture around internal prosthetic right hip joint: (4) Age related osteoporosis: (5) Diabetes mellitus, type II: (6) HTN (hypertension): (7) Hyperlipidemia: Plan This is a 67yo F with PMH of HTN, DM II, HLD, mood disorder, h/o breast cancer s/p partial mastectomy and other medical problems who presents to ED from outside hospital for suspected upper GI bleeding. Pt presented to [facility] from [facility] due to abd pain, nausea, fatigue. Hgb 4.0, received 2 units PRBC and IV lasix. En route via life flight received additional [address] a/p at OSH revealed enteritis but evidence of bleed, or obstruction. NGT placed due to possible gastric distension and dark black material that was positive for occult blood was removed. Pt on eliquis for dvt ppx s/p R hip surgery. UGIB Acute blood loss anemia Pt admitted to PCU Hgb at d/c was 8.0, hgb at OSH 4.0 earlier on the day of admission Received 3 total units of PRBC so far and 1 dose of IV lasix in route Continue PPI bolus and gtt NGT in place for now, not to suction, ok per GI Hemoglobin on admission was 9.1 and today it has been 7.8 which is in part dilutional No more evidence of bleeding Appreciate GI input and EGD which showed gastritis in the proximal stomach, erythematous mucosa in the duodenal bulb if without any evidence of active bleeding Advised to have PPI drip for 24 to 48 hours and then start on a diet Hemoglobin went down to 7.4 Will have 1 unit of blood transfusion Diarrhea/Enteritis per OSH CT Stool for cdiff negative at OSH Will repeat stool studies-not being sent yet No more diarrhea No antibiotics Recent UTI pt with E. coli UTI on 08/17. Treated with bactrim/macrobid but pt refused due to upset stomach received 1g rocephin at OSH obtain UA-negative and urine culture has been growing 3 types of organisms Blood cultures pending gloria cath in place will need exchanged Periprosthetic fracture of right prosthetic hip joint status postrepair on 08/12 Toe-touch weightbearing to right lower extremity [place] still intact Discussed with Fidel Natarajan for them to eval while in house Appreciate Ortho input and recommendation CT of the pelvis did not show any significant bleeding but normal fluid collection around the replaced joint Betito were removed Awaiting PT evaluation T2DM Last A1c 5.7 Hold Actos NovoLog per protocol Hypertension Hold amlodipine and lisinopril for now in setting of GI bleed Depression/anxiety/mood disorder Continue BuSpar and fluoxetine when able to tolerate p.o. DVT prophylaxis: SCD, D/C apixaban FULL CODE PCP: Reid We will get PT and OT evaluation May need placement Admission and Anticipated Discharge Date Admission Date: August 31, 2022 Subjective 09/01/2022 The patient was seen and examined in telemetry unit She is a status post EGD and remains weak and lethargic but denies any significant symptoms Denies any chest pain, palpitation or shortness of breath No significant bleeding from the GI tract 09/02/2022 The patient was seen and examined in telemetry unit She has been stable but remains weak and lethargic Complains to have shortness of breath minimal exertion She will get 1 unit of blood transfusion Review of Systems Review of Systems: All systems reviewed and are unremarkable except as noted below Physical Exam Physical Exam: Lying in bed comfortably but looks pale Constitutional: well developed, well nourished, + ill appearing and + obese Eyes: PERRL, conjunctivae normal, anicteric sclerae ENMT: external ear and nose normal, oropharynx normal Neck: trachea midline, no thyromegaly Respiratory: no respiratory distress Auscultation: lungs clear to auscultation bilaterally Cardiovascular: Rate/Rhythm: regular rate and regular rhythm; not tachycardic Heart Sounds: normal S1 and normal S2; no murmur Extremities: + edema (Trace edema bilaterally) Gastrointestinal (Abdomen): Inspection/Auscultation: normal bowel sounds; abdomen not distended Percussion/Palpation: abdomen soft; abdomen nontender Neurologic: normal touch/pain/proprioception and moves all extremities; no focal motor deficits Lymphatic: no cervical or axillary lymphadenopathy Results & Data Results & Data Vital Signs (Past 12 Hours) Vital Signs Temp Pulse Pulse Resp BP Pulse Ox O2 Del Method 09/03/22 12:00 36.8 C 70 18 124/67 97 Room Air 09/03/22 09:31 78 09/03/22 08:00 36.9 C 82 18 114/76 95 Room Air 09/03/22 03:00 36.7 C 82 22 119/67 97 Room Air
--- NOTE | 2022-09-03 14:31 | Hospitalist Progress Note ---
Date of Service September 03, 2022 Assessment & Plan (1) UGIB (upper gastrointestinal bleed): (2) Acute blood loss anemia: (3) Periprosthetic fracture around internal prosthetic right hip joint: (4) Age related osteoporosis: (5) Diabetes mellitus, type II: (6) HTN (hypertension): (7) Hyperlipidemia: Plan This is a 67yo F with PMH of HTN, DM II, HLD, mood disorder, h/o breast cancer s/p partial mastectomy and other medical problems who presents to ED from outside hospital for suspected upper GI bleeding. Pt presented to [facility] from [facility] due to abd pain, nausea, fatigue. Hgb 4.0, received 2 units PRBC and IV lasix. En route via life flight received additional [address] a/p at OSH revealed enteritis but evidence of bleed, or obstruction. NGT placed due to possible gastric distension and dark black material that was positive for occult blood was removed. Pt on eliquis for dvt ppx s/p R hip surgery. UGIB Acute blood loss anemia Pt admitted to PCU Hgb at d/c was 8.0, hgb at OSH 4.0 earlier on the day of admission Received 3 total units of PRBC so far and 1 dose of IV lasix in route Continue PPI bolus and gtt NGT in place for now, not to suction, ok per GI Hemoglobin on admission was 9.1 and today it has been 7.8 which is in part dilutional No more evidence of bleeding Appreciate GI input and EGD which showed gastritis in the proximal stomach, erythematous mucosa in the duodenal bulb if without any evidence of active bleeding Advised to have PPI drip for 24 to 48 hours and then start on a diet Hemoglobin went down to 7.4 Will have 1 unit of blood transfusion Hemoglobin went up to 8.8 following 1 unit of blood transfusion and the patient has been feeling much better PT evaluation was done and recommended to go to rehab She wants to go home instead Diarrhea/Enteritis per OSH CT Stool for cdiff negative at OSH Will repeat stool studies-not being sent yet No more diarrhea No antibiotics Recent UTI pt with E. coli UTI on 08/17. Treated with bactrim/macrobid but pt refused due to upset stomach received 1g rocephin at OSH obtain UA-negative and urine culture has been growing 3 types of organisms Blood cultures pending gloria cath in place will need exchanged Denies any urinary symptoms Periprosthetic fracture of right prosthetic hip joint status postrepair on 08/12 Toe-touch weightbearing to right lower extremity Bet[place] still intact Discussed with Fidel Natarajan for them to eval while in house Appreciate Ortho input and recommendation CT of the pelvis did not show any significant bleeding but normal fluid collection around the replaced joint Betito were removed Awaiting PT evaluation-recommended rehab T2DM Last A1c 5.7 Hold Actos NovoLog per protocol Hypertension Hold amlodipine and lisinopril for now in setting of GI bleed Depression/anxiety/mood disorder Continue BuSpar and fluoxetine when able to tolerate p.o. DVT prophylaxis: SCD, D/C apixaban FULL CODE PCP: Reid We will get PT and OT evaluation May need placement Admission and Anticipated Discharge Date Admission Date: August 31, 2022 Subjective 09/01/2022 The patient was seen and examined in telemetry unit She is a status post EGD and remains weak and lethargic but denies any significant symptoms Denies any chest pain, palpitation or shortness of breath No significant bleeding from the GI tract 09/02/2022 The patient was seen and examined in telemetry unit She has been stable but remains weak and lethargic Complains to have shortness of breath minimal exertion She will get 1 unit of blood transfusion 09/03/2022 The patient was seen and examined in telemetry unit She has been feeling much better today and more energetic Denies any significant symptoms She has been waiting to get PT evaluation Review of Systems Review of Systems: All systems reviewed and are unremarkable except as noted below Physical Exam Physical Exam: Lying in bed comfortably but looks pale Constitutional: well developed, well nourished, + ill appearing and + obese Eyes: PERRL, conjunctivae normal, anicteric sclerae ENMT: external ear and nose normal, oropharynx normal Neck: trachea midline, no thyromegaly Respiratory: no respiratory distress Auscultation: lungs clear to aus cultation bilaterally Cardiovascular: Rate/Rhythm: regular rate and regular rhythm; not tachycardic Heart Sounds: normal S1 and normal S2; no murmur Extremities: + edema (Trace edema bilaterally) Gastrointestinal (Abdomen): Inspection/Auscultation: normal bowel sounds; abdomen not distended Percussion/Palpation: abdomen soft; abdomen nontender Musculoskeletal: No acute arthritis involving any of the joint Neurologic: normal touch/pain/proprioception and moves all extremities; no focal motor deficits Lymphatic: no cervical or axillary lymphadenopathy Results & Data Results & Data Vital Signs (Past 12 Hours) Vital Signs Temp Pulse Pulse Resp BP Pulse Ox O2 Del Method 09/03/22 12:00 36.8 C 70 18 124/67 97 Room Air 09/03/22 09:31 78 09/03/22 08:00 36.9 C 82 18 114/76 95 Room Air 09/03/22 03:00 36.7 C 82 22 119/67 97 Room Air Laboratory Results Short CBC 09/03/22 Range/Units 06:24 WBC 6.43 (4.8-10.8) K/ul Hgb 8.8 L (12.0-16.0) g/dl Hct 28.7 L (37.0-47.0) % Plt Count 334 (130-400) K/uL BMP 09/03/22 06:24 Sodium 137 Potassium 3.4 L Chloride 110 H Carbon Dioxide 21 BUN 9 Creatinine 0.55 L Glucose 78 Calcium 7.6 L Medications Administered Current Inpatient Medications Acetaminophen (Acetaminophen 325 Mg Tab) 650 mg PO Q4H PRN PRN Reason: Pain or Fever Stop: 09/30/22 08:48 Al Hydrox/Mg Hydrox/Simethicone (Aluminum/Magnesium Susp 30 Ml Udc) 15 ml PO Q4H PRN PRN Reason: Dyspepsia Stop: 09/30/22 08:48 Dextrose (Dextrose 50% 50 Ml Syringe) 25 - 50 ml IV UD PRN; Protocol PRN Reason: Hypoglycemia Protocol Stop: 09/30/22 09:32 Glucagon (Glucagon For Inj 1 Mg Vial) 1 mg SQ UD PRN; Protocol PRN Reason: Hypoglycemia Protocol Stop: 09/30/22 09:32 Glucose (Glucose 10 Tab/Tube) 4 - 8 tab PO UD PRN; Protocol PRN Reason: Hypoglycemia Treatment Stop: 09/30/22 09:32 Glucose (Glucose 40% Gel 15 Gm Tube) 15 - 30 gm PO UD PRN; Protocol PRN Reason: Hypoglycemia Protocol Stop: 09/30/22 09:32 Pantoprazole Sodium 40 mg/ (Dextrose) 100 mls @ 20 mls/hr IV Q5H BARB Stop: 09/30/22 08:59 Last Admin: 09/03/22 14:23 Dose: 8 mg/hr, 20 mls/hr Lactated Ringer's (Lr) 1,000 mls @ 80 mls/hr IV .[id number] [facility] Stop: 09/30/22 11:29 Last Admin: 09/03/22 02:43 Dose: 80 mls/hr Insulin Aspart (Insulin Aspart Per Unit Charge) 0 units SC ACHS [facility] Stop: 10/01/22 00:00 Last Admin: 09/03/22 12:31 Dose: 2 units Insulin Glargine (Lantus Per Unit Charge) 0 units SQ Q12H [facility]; Protocol Stop: 09/30/22 11:29 Last Admin: 09/03/22 12:18 Dose: Not Given Melatonin (Melatonin 3 Mg Tab) 3 mg PO HS PRN PRN Reason: Sleep Stop: 10/01/22 20:28 Last Admin: 09/02/22 22:44 Dose: 3 mg Miscellaneous (Carbohydrates For Hypoglycemia ) 15 - 30 gm PO UD PRN PRN Reason: Hypoglycemia Protocol Stop: 09/30/22 09:32 Morphine Sulfate (Morphine Sulfate 2 Mg/Ml Carp) 2 mg IV Q4H PRN PRN Reason: severe pain 7-10 Stop: 09/14/22 10:06 Last Admin: 09/03/22 14:23 Dose: 2 mg Ondansetron HCl (Ondansetron Inj 2 Mg/Ml 2 Ml Vial) 4 mg IV Q6H PRN PRN Reason: Nausea Stop: 09/30/22 08:48
[2022-09-04] MEDS: PANTOprazole 40 MG in DEXTROSE 5% 100 ML IV SCH ×5 (00:47→19:38)
[2022-09-04] MEDS: LACTATED RINGER'S 1,000 ML IV SCH ×2 (00:48→14:40)
[2022-09-04 06:16] LABS: Basophils # (auto) 0.03 K/uL (0-0.2); Basophils % (auto) 0.4 %; Eosinophils # (auto) 0.18 K/uL (0-0.50); Eosinophils % (auto) 2.4 %; Hematocrit (blood only) 26.9 % (37.0-47.0); Hemoglobin 8.5 g/dl (12.0-16.0); Immature Granulocytes # (auto) 0.15 K/uL (0.01-0.20); Lymphocytes # (auto) 1.11 K/uL (1.2-3.4); Lymphocytes % (auto) 14.7 %; Mean Corpuscular Hemoglobin 28.1 pg (25.0-34.0); Mean Corpuscular Hgb Conc 31.6 g/dL (32.0-36.0); Mean Corpuscular Volume 88.8 fL (80.0-100.0); Mean Platelet Volume 9.5 fL (9.4-12.4); Monocytes # (auto) 0.76 K/uL (0.11-0.59); Monocytes % (auto) 10.1 %; Neutrophils # (auto) 5.33 K/uL (1.40-6.50); Neutrophils % (auto) 70.4 %; Platelet Count 297 K/uL (130-400); RDW Coefficient of Variation 17.2 % (11.5-14.5); RDW Standard Deviation 55.6 fL (36.4-46.3); Red Blood Count 3.03 M/uL (4.20-5.40); White Blood Count 7.56 K/ul (4.8-10.8)
[2022-09-04 06:31] LABS: BUN Creatinine Ratio 9.3 (10-20); Calcium 7.7 mg/dl (8.6-10.3); Creatinine Clr Calc Pharmacy 121.7 ml/min; Est GFR (African American) 113.2 ml/min; Est GFR (Non-African American) 97.6 ml/min; Magnesium 1.6 mg/dl (1.7-2.4); Potassium 3.3 mmol/L (3.5-5.1)
[2022-09-04] MEDS ORDERED: POTASSIUM CHLORIDE CRTAB 20 MEQ TABCR PO STA (07:37)
[2022-09-04] MEDS ORDERED: MAGNESIUM SULFATE / D5W 1 GM/100 ML BAG IV ONE (07:45)
[2022-09-04] MEDS: INSULIN ASPART PER UNIT CHARGE SC SCH ×4 (08:22→20:27)
[2022-09-04] MEDS: DEXTROSE 5% IV SCH ×2 (09:25→10:45)
[2022-09-04] MEDS: POTASSIUM ACETATE IV SCH ×2 (09:25→10:45)
[2022-09-04] MEDS: LANTUS PER UNIT CHARGE SQ SCH ×2 (12:05→20:28)
--- NOTE | 2022-09-04 14:48 | Hospitalist Progress Note ---
Date of Service September 04, 2022 Assessment & Plan (1) UGIB (upper gastrointestinal bleed): (2) Acute blood loss anemia: (3) Periprosthetic fracture around internal prosthetic right hip joint: (4) Age related osteoporosis: (5) Diabetes mellitus, type II: (6) HTN (hypertension): (7) Hyperlipidemia: Plan This is a 67yo F with PMH of HTN, DM II, HLD, mood disorder, h/o breast cancer s/p partial mastectomy and other medical problems who presents to ED from outside hospital for suspected upper GI bleeding. Pt presented to [facility] from [facility] due to abd pain, nausea, fatigue. Hgb 4.0, received 2 units PRBC and IV lasix. En route via life flight received additional [address] a/p at OSH revealed enteritis but evidence of bleed, or obstruction. NGT placed due to possible gastric distension and dark black material that was positive for occult blood was removed. Pt on eliquis for dvt ppx s/p R hip surgery. UGIB Acute blood loss anemia Pt admitted to PCU Hgb at d/c was 8.0, hgb at OSH 4.0 earlier on the day of admission Received 3 total units of PRBC so far and 1 dose of IV lasix in route Continue PPI bolus and gtt NGT in place for now, not to suction, ok per GI Hemoglobin on admission was 9.1 and today it has been 7.8 which is in part dilutional No more evidence of bleeding Appreciate GI input and EGD which showed gastritis in the proximal stomach, erythematous mucosa in the duodenal bulb if without any evidence of active bleeding Advised to have PPI drip for 24 to 48 hours and then start on a diet Hemoglobin went down to 7.4 Will have 1 unit of blood transfusion Hemoglobin went up to 8.8 following 1 unit of blood transfusion and the patient has been feeling much better Has been feeling much better following blood transfusion Diarrhea/Enteritis per OSH CT Stool for cdiff negative at OSH Will repeat stool studies-not being sent yet No more diarrhea No antibiotics Recent UTI pt with E. coli UTI on 08/17. Treated with bactrim/macrobid but pt refused due to upset stomach received 1g rocephin at OSH obtain UA-negative and urine culture has been growing 3 types of organisms Blood cultures pending gloria cath in place will need exchanged Denies any urinary symptoms Periprosthetic fracture of right prosthetic hip joint status postrepair on 08/12 Toe-touch weightbearing to right lower extremity [place] still intact Discussed with Fidel Natarajan for them to eval while in house Appreciate Ortho input and recommendation CT of the pelvis did not show any significant bleeding but normal fluid collection around the replaced joint [place] were removed PT evaluation was done and recommended to go to rehab She wants to go home instead PT recommended rehab and has been waiting to go to [facility] T2DM Last A1c 5.7 Hold Actos NovoLog per protocol Hypertension Hold amlodipine and lisinopril for now in setting of GI bleed Depression/anxiety/mood disorder Continue BuSpar and fluoxetine when able to tolerate p.o. DVT prophylaxis: SCD, D/C apixaban FULL CODE PCP: Reid Awaiting placement Admission and Anticipated Discharge Date Admission Date: August 31, 2022 Subjective 09/01/2022 The patient was seen and examined in telemetry unit She is a status post EGD and remains weak and lethargic but denies any significant symptoms Denies any chest pain, palpitation or shortness of breath No significant bleeding from the GI tract 09/02/2022 The patient was seen and examined in telemetry unit She has been stable but remains weak and lethargic Complains to have shortness of breath minimal exertion She will get 1 unit of blood transfusion 09/03/2022 The patient was seen and examined in telemetry unit She has been feeling much better today and more energetic Denies any significant symptoms She has been waiting to get PT evaluation 09/04/2022 The patient was seen and examined in telemetry unit She has been feeling much better and denies any significant symptoms following blood transfusion He has had physical therapy and recommended to go to rehab Has been waiting to be accepted from [facility] Review of Systems Review of Systems: All systems reviewed and are unremarkable except as noted below Physical Exam Physical Exam: Lying in bed comfortably but looks pale Constitutional: well developed, well nourished, + ill appearing and + obese Eyes: PERRL, conjunctivae normal, anicteric sclerae ENMT: external ear and nose normal, oropharynx normal Neck: trachea midline, no thyromegaly Respiratory: no respiratory distress Auscultation: lungs clear to auscultation bilaterally Cardiovascular: Rate/Rhythm: regular rate and regular rhythm; not tachycardic Heart Sounds: normal S1 and normal S2; no murmur Extremities: + edema (Trace edema bilaterally) Gastrointestinal (Abdomen): Inspection/Auscultation: normal bowel sounds; abdomen not distended Percussion/Palpation: abdomen soft; abdomen nontender Neurologic: normal touch/pain/proprioception and moves all extremities; no focal motor deficits Lymphatic: no cervical or axillary lymphadenopathy Results & Data Results & Data Vital Signs (Past 12 Hours) Vital Signs Temp Pulse Pulse Resp BP Pulse Ox O2 Del Method 09/04/22 11:22 36.9 C 82 17 141/83 H 95 Room Air 09/04/22 08:00 91 H 09/04/22 07:28 37.1 C 89 16 132/71 97 Room Air 09/04/22 02:51 37.2 C 87 18 127/65 97 Room Air
[2022-09-04] MEDS: MoRPHine SULFATE 2 MG/ML CARP IV PRN (16:43)
[2022-09-04] MEDS ORDERED: Nursing to Pharmacy Communication SCH (19:45)
[2022-09-04 20:14] LABS: Adenovirus F 40/41 PCR Not Detected (NotDetected); Astrovirus PCR Not Detected (NotDetected); Campylobacter PCR Not Detected (NotDetected); Cryptosporidium PCR Not Detected (NotDetected); Cyclospora cayetanensis PCR Not Detected (NotDetected); Entamoeba histolytica PCR Not Detected (NotDetected); Enteroaggregative E.coli(EAEC) Not Detected (NotDetected); Enteropathogenic E.coli (EPEC) Not Detected (NotDetected); Enterotoxigenic E.coli (ETEC) Not Detected (NotDetected); Giardia lamblia PCR Not Detected (NotDetected); Norovirus GI/GII PCR Not Detected (NotDetected); Plesiomonas shigelloides PCR Not Detected (NotDetected); Rotavirus A PCR Not Detected (NotDetected); Salmonella PCR Not Detected (NotDetected); Sapovirus PCR Not Detected (NotDetected); Shiga-like Toxin E.coli (STEC) Not Detected (NotDetected); Shigella/Enteroinvasive E.coli Not Detected (NotDetected); Vibrio cholerae PCR Not Detected (NotDetected); Vibrio species PCR Not Detected (NotDetected); Yersinia enterocolitica PCR Not Detected (NotDetected)
[2022-09-05] MEDS: PANTOprazole 40 MG in DEXTROSE 5% 100 ML IV SCH ×3 (00:15→10:50)
[2022-09-05] MEDS: LACTATED RINGER'S 1,000 ML IV SCH (02:28)
[2022-09-05] MEDS: MoRPHine SULFATE 2 MG/ML CARP IV PRN (07:41)
[2022-09-05] MEDS: ONDANSETRON INJ 2 MG/ML 2 ML VIAL IV PRN ×2 (08:20→14:39)
[2022-09-05] MEDS: INSULIN ASPART PER UNIT CHARGE SC SCH ×4 (08:44→21:01)
[2022-09-05] MEDS: LANTUS PER UNIT CHARGE SQ SCH ×2 (08:46→21:02)
[2022-09-05 10:06] LABS: Hematocrit (blood only) 27.6 % (37.0-47.0); Hemoglobin 8.6 g/dl (12.0-16.0)
[2022-09-05 10:10] LABS: BUN Creatinine Ratio 7.3 (10-20); Calcium 7.8 mg/dl (8.6-10.3); Creatinine Clr Calc Pharmacy 120.8 ml/min; Est GFR (African American) 112.5 ml/min; Est GFR (Non-African American) 97.1 ml/min; Magnesium 1.6 mg/dl (1.7-2.4); Potassium 3.8 mmol/L (3.5-5.1)
[2022-09-05] MEDS ORDERED: MAGNESIUM SULFATE / D5W 1 GM/100 ML BAG IV ONE (11:50)
[2022-09-05] MEDS: HEPARIN SOD 5,000 UNIT/0.5 ML VIAL SQ SCH ×2 (12:32→23:35)
--- NOTE | 2022-09-05 14:51 | Hospitalist Progress Note ---
Date of Service September 05, 2022 Assessment & Plan (1) UGIB (upper gastrointestinal bleed): (2) Acute blood loss anemia: (3) Periprosthetic fracture around internal prosthetic right hip joint: (4) Age related osteoporosis: (5) Diabetes mellitus, type II: (6) HTN (hypertension): (7) Hyperlipidemia: Plan Patient is a 67 yr female with H/O HTN, DM II, HLD, mood disorder, h/o breast cancer s/p partial mastectomy and other medical problems who presents to ED from outside hospital for suspected upper GI bleeding. Pt presented to [facility] from [facility] due to abd pain, nausea, fatigue. UGIB Acute gastritis and duodenitis Acute blood loss anemia -CT a/p at OSH revealed enteritis but evidence of bleed, or obstruction. +FOBT Was on Eliquis for DVT prophylaxis S/P right hip surgery which was held initially -S/P EGD: Normal esophagus, Z-line regular, normal stomach. Gastritis in the proximal stomach. Erythematous mucosa in the bulb. Normal second portion of duodenum. --S/P 1 unit PRBCs -- IV Protonix transition to p.o. protonix Appreciate GI input Monitor H&H and transfuse PRBCs as needed Avoid NSAIDs Trial of SQ heparin, if tolerates and has no recurrence of bleeding issues, will plan to resume Eliquis Diarrhea/Enteritis per OSH CT ? Viral Etiology Stool Studies: Negative Monitor Recent UTI E. coli UTI on 08/17. Treated with Bactrim/Macrobid but pt refused due to upset stomach Received 1g Rocephin at OSH Urine culture at [facility] has been growing 3 types of organisms--likely contaminated sample Blood culture negative to date Currently denies any urinary symptoms Hypomagnesemia Hypokalemia Replete electrolytes as needed Periprosthetic fracture of right prosthetic hip joint status postrepair on 08/12 --Hip CT:Right hip arthroplasty. Unchanged alignment of the acute fixated periprosthetic right femoral fracture with lateral skin deyanira and subcutaneous edema versus hemorrhage. No discrete drainable fluid collection. Toe-touch weightbearing to right lower extremity Appreciate Ortho input and recommendation CT of the pelvis did not show any significant bleeding but normal fluid collection around the replaced joint [place] were removed Continue PT/OT SNF as able DM II Last A1c 5.7 Hold Actos NovoLog per protocol Monitor BGs Hypertension BP Stable Hold amlodipine and lisinopril for now Depression/anxiety/mood disorder Continue BuSpar and fluoxetine DVT Px: SQ Heparin for now Code Status FULL CODE Admission and Anticipated Discharge Date Admission Date: August 31, 2022 Subjective Patient is seen and examined at bedside States having nausea associated with diarrhea Also reports minimal pain at surgical site of right hip Denies any recurrence of bleeding Also denies any chest pain, dyspnea, dizziness, abd pain No other complaints Review of Systems Review of Systems: All systems reviewed & are unremarkable except as noted in Subjective Physical Exam Physical Exam: Physical Exam: Vitals signs as noted above General Appearance:Obese, no apparent distress Head: normocephalic, Atraumatic Eyes: normal inspection, EOMI Neck: supple, Trachea midline Respiratory/Chest: Normal breath sounds, CTA, No accessory muscle use Cardiovascular: S1, S2, No murmur Abdomen/GI:Soft, Non tender, Bowel sounds present Extremities/Musculoskeletal:normal inspection, Trace edema, R hip surgical site in dressing Neurologic/Psych:AAOX3, grossly no focal neurological deficits Skin: normal color, warm Results & Data Results & Data Vital Signs (Past 12 Hours) Vital Signs Temp Pulse Pulse Pulse Resp BP Pulse Ox 09/05/22 12:29 36.7 C 85 19 120/68 98 09/05/22 07:21 36.6 C 86 20 126/70 96 09/05/22 07:16 86 09/05/22 03:32 37.1 C 89 18 113/69 97 O2 Del Method 09/05/22 12:29 Room Air 09/05/22 07:21 Room Air 09/05/22 07:16 09/05/22 03:32 Room Air Laboratory Results Short CBC 09/05/22 Range/Units 09:27 Hgb 8.6 L (12.0-16.0) g/dl Hct 27.6 L (37.0-47.0) % BMP 09/05/22 09:27 Sodium 139 Potassium 3.8 Chloride 111 H Carbon Dioxide 24 BUN 4 L Creatinine 0.55 L Glucose 118 H Calcium 7.8 L
[2022-09-05] MEDS: ADVANCED PROBIOTIC 1250 MG CAPSULE PO SCH (16:14)
[2022-09-05] MEDS: PANTOprazole 40 MG TAB PO SCH (21:01)
[2022-09-06] MEDS: MELATONIN 3 MG TAB PO PRN (01:16)
[2022-09-06 06:39] LABS: Hematocrit (blood only) 27.6 % (37.0-47.0); Hemoglobin 8.7 g/dl (12.0-16.0)
[2022-09-06 06:55] LABS: BUN Creatinine Ratio 8.5 (10-20); Calcium 7.7 mg/dl (8.6-10.3); Creatinine Clr Calc Pharmacy 112.6 ml/min; Est GFR (African American) 109.9 ml/min; Est GFR (Non-African American) 94.8 ml/min; Magnesium 1.8 mg/dl (1.7-2.4); Potassium 3.8 mmol/L (3.5-5.1)
[2022-09-06] MEDS: LANTUS PER UNIT CHARGE SQ SCH ×2 (08:23→21:31)
[2022-09-06] MEDS: INSULIN ASPART PER UNIT CHARGE SC SCH ×4 (08:23→21:31)
[2022-09-06] MEDS: ADVANCED PROBIOTIC 1250 MG CAPSULE PO SCH (08:25)
[2022-09-06] MEDS: PANTOprazole 40 MG TAB PO SCH ×2 (08:25→21:26)
[2022-09-06] MEDS: MoRPHine SULFATE 2 MG/ML CARP IV PRN (08:31)
[2022-09-06] MEDS: HEPARIN SOD 5,000 UNIT/0.5 ML VIAL SQ SCH ×2 (12:06→23:16)
[2022-09-06] MEDS ORDERED: NYSTATIN POWDER 15GM BTL EXT PRN (12:15)
[2022-09-06] MEDS ORDERED: oxyCODONE/ACETAMINOPHEN 5mg/325mg TAB PO ONE (16:15)
--- NOTE | 2022-09-06 16:53 | Hospitalist Progress Note ---
Date of Service September 06, 2022 Assessment & Plan (1) UGIB (upper gastrointestinal bleed): (2) Acute blood loss anemia: (3) Periprosthetic fracture around internal prosthetic right hip joint: (4) Age related osteoporosis: (5) Diabetes mellitus, type II: (6) HTN (hypertension): (7) Hyperlipidemia: Plan Patient is a 67 yr female with H/O HTN, DM II, HLD, mood disorder, h/o breast cancer s/p partial mastectomy and other medical problems who presents to ED from outside hospital for suspected upper GI bleeding. Pt presented to [facility] from [facility] due to abd pain, nausea, fatigue. UGIB Acute gastritis and duodenitis Acute blood loss anemia -CT a/p at OSH revealed enteritis but evidence of bleed, or obstruction. +FOBT Was on Eliquis for DVT prophylaxis S/P right hip surgery which was held initially -S/P EGD: Normal esophagus, Z-line regular, normal stomach. Gastritis in the proximal stomach. Erythematous mucosa in the bulb. Normal second portion of duodenum. --S/P 1 unit PRBCs -- IV Protonix transition to p.o. Protonix Appreciate GI input Monitor H&H and transfuse PRBCs as needed Avoid NSAIDs Trial of SQ heparin, if tolerates and has no recurrence of bleeding issues, will plan to resume Eliquis Tolerating SQ heparin with no issues Diarrhea/Enteritis per OSH CT ? Viral Etiology Stool Studies: Negative Monitor Improving Recent UTI E. coli UTI on 08/17. Treated with Bactrim/Macrobid but pt refused due to upset stomach Received 1g Rocephin at OSH Urine culture at [facility] has been growing 3 types of organisms--likely contaminated sample Blood culture negative to date Currently denies any urinary symptoms Hypomagnesemia Hypokalemia Replete electrolytes as needed Periprosthetic fracture of right prosthetic hip joint status postrepair on 08/12 --Hip CT:Right hip arthroplasty. Unchanged alignment of the acute fixated periprosthetic right femoral fracture with lateral skin deyanira and subcutaneous edema versus hemorrhage. No discrete drainable fluid collection. Toe-touch weightbearing to right lower extremity Appreciate Ortho input and recommendation CT of the pelvis did not show any significant bleeding but normal fluid collection around the replaced joint Deyanira were removed Continue PT/OT SNF when accepted DM II Last A1c 5.7 Hold Actos NovoLog per protocol Monitor BGs Hypertension BP Stable off meds Hold amlodipine and lisinopril for now Depression/anxiety/mood disorder Continue BuSpar and fluoxetine DVT Px: SQ Heparin for now Code Status FULL CODE Disposition SNF when accepted Admission and Anticipated Discharge Date Admission Date: August 31, 2022 Subjective Patient is seen and examined at bedside Less diarrhea today Still has right hip pain intermittently No recurrence of bleeding Denies any chest pain, dyspnea, dizziness, abd pain Waiting for Rehab placement Review of Systems Review of Systems: All systems reviewed & are unremarkable except as noted in Subjective Physical Exam Physical Exam: Physical Exam: Vitals signs as noted above General Appearance:Obese, no apparent distress Head: normocephalic, Atraumatic Eyes: normal inspection, EOMI Neck: supple, Trachea midline Respiratory/Chest: Normal breath sounds, CTA, No accessory muscle use Cardiovascular: S1, S2, No murmur Abdomen/GI:Soft, Non tender, Bowel sounds present Extremities/Musculoskeletal:normal inspection, Trace edema, R hip surgical site in dressing Neurologic/Psych:AAOX3, grossly no focal neurological deficits Skin: normal color, warm Results & Data Results & Data Vital Signs (Past 12 Hours) Vital Signs Temp Pulse Pulse Resp BP Pulse Ox O2 Del Method 09/06/22 15:59 Room Air 09/06/22 15:17 36.9 C 80 18 129/67 98 Room Air 09/06/22 14:14 89 09/06/22 11:40 36.7 C 83 20 124/65 97 Room Air 09/06/22 06:02 79 09/06/22 08:15 Room Air 09/06/22 07:35 36.7 C 85 19 125/63 97 Room Air Laboratory Results Short CBC 09/06/22 Range/Units 05:46 Hgb 8.7 L (12.0-16.0) g/dl Hct 27.6 L (37.0-47.0) % BMP 09/06/22 05:46 Sodium 139 Potassium 3.8 Chloride 111 H Carbon Dioxide 25 BUN 5 L Creatinine 0.59 L Glucose 90 Calcium 7.7 L
[2022-09-06] MEDS: oxyCODONE/ACETAMINOPHEN 5mg/325mg TAB PO PRN (21:26)
[2022-09-06] MEDS: busPIRone 7.5 MG TAB PO SCH (21:27)
[2022-09-06] MEDS: SIMVASTATIN 20 MG TAB PO SCH (21:27)
[2022-09-07] MEDS: PANTOprazole 40 MG TAB PO SCH ×2 (08:23→20:23)
[2022-09-07] MEDS: FLUoxetine HCL 20 MG CAP PO SCH (08:23)
[2022-09-07] MEDS: ASPIRIN 81 MG ECTAB PO SCH (08:23)
[2022-09-07] MEDS: ADVANCED PROBIOTIC 1250 MG CAPSULE PO SCH (08:24)
[2022-09-07] MEDS: busPIRone 7.5 MG TAB PO SCH ×3 (08:24→20:23)
[2022-09-07] MEDS: oxyCODONE/ACETAMINOPHEN 5mg/325mg TAB PO PRN ×2 (08:25→20:26)
[2022-09-07 08:54] LABS: BUN Creatinine Ratio 9.1 (10-20); Calcium 7.9 mg/dl (8.6-10.3); Creatinine Clr Calc Pharmacy 120.8 ml/min; Est GFR (African American) 112.5 ml/min; Est GFR (Non-African American) 97.1 ml/min; Magnesium 1.7 mg/dl (1.7-2.4); Potassium 3.9 mmol/L (3.5-5.1)
[2022-09-07] MEDS: INSULIN ASPART PER UNIT CHARGE SC SCH ×4 (09:12→20:27)
[2022-09-07] MEDS: LANTUS PER UNIT CHARGE SQ SCH ×2 (09:18→20:28)
[2022-09-07] MEDS: HEPARIN SOD 5,000 UNIT/0.5 ML VIAL SQ SCH ×2 (12:53→22:46)
--- NOTE | 2022-09-07 14:59 | Hospitalist Progress Note ---
Date of Service September 07, 2022 Assessment & Plan (1) UGIB (upper gastrointestinal bleed): (2) Acute blood loss anemia: (3) Periprosthetic fracture around internal prosthetic right hip joint: (4) Age related osteoporosis: (5) Diabetes mellitus, type II: (6) HTN (hypertension): (7) Hyperlipidemia: Plan Patient is a 67 yr female with H/O HTN, DM II, HLD, mood disorder, h/o breast cancer s/p partial mastectomy and other medical problems who presents to ED from outside hospital for suspected upper GI bleeding. Pt presented to [facility] from [facility] due to abd pain, nausea, fatigue. UGIB Acute gastritis and duodenitis Acute blood loss anemia -CT a/p at OSH revealed enteritis but evidence of bleed, or obstruction. +FOBT Was on Eliquis for DVT prophylaxis S/P right hip surgery which was held initially -S/P EGD: Normal esophagus, Z-line regular, normal stomach. Gastritis in the proximal stomach. Erythematous mucosa in the bulb. Normal second portion of duodenum. --S/P 1 unit PRBCs, received 3 units at OSH -- IV Protonix transition to p.o. Protonix Appreciate GI input Monitor H&H and transfuse PRBCs as needed Avoid NSAIDs Trial of SQ heparin, if tolerates and has no recurrence of bleeding issues, will plan to resume Eliquis Tolerating SQ heparin with no issues Hgb stable 8.7 Diarrhea/Enteritis per OSH CT ? Viral Etiology Stool Studies: Negative Monitor Improving, had first hard stool today Recent UTI E. coli UTI on 08/17. Treated with Bactrim/Macrobid but pt refused due to upset stomach Received 1g Rocephin at OSH Urine culture at [facility] has been growing 3 types of organisms--likely contaminated sample Blood culture negative to date Currently denies any urinary symptoms Hypomagnesemia Hypokalemia Replete electrolytes as needed Periprosthetic fracture of right prosthetic hip joint status postrepair on 08/12 --Hip CT:Right hip arthroplasty. Unchanged alignment of the acute fixated periprosthetic right femoral fracture with lateral skin deyanira and subcutaneous edema versus hemorrhage. No discrete drainable fluid collection. Toe-touch weightbearing to right lower extremity Appreciate Ortho input and recommendation CT of the pelvis did not show any significant bleeding but normal fluid col lection around the replaced joint [place] were removed Continue PT/OT SNF when accepted DM II Last A1c 5.7 Hold Actos NovoLog per protocol Monitor BGs Hypertension BP Stable off meds Hold amlodipine and lisinopril for now Depression/anxiety/mood disorder Continue BuSpar and fluoxetine DVT Px: SQ Heparin for now Code Status FULL CODE Disposition SNF when accepted, Plan is [facility] Admission and Anticipated Discharge Date Admission Date: August 31, 2022 Supervising Physician Co-Signing Physician Notes Patient is seen and examined at bedside. Diarrhea resolved. No new complaints. Waiting for rehab placement. Examination unchanged from yesterday. Upper GI bleed. No recurrence of bleeding. Plan to transition to Eliquis tomorrow. Plan to discharge to SNF when accepted. I personally reviewed the record. Esha merritt is interviewed and examined at bedside. Patient's care is coordinated with Angelita Cee PA-C. Please refer to the documentation above for details of patient's presentation and for discussion of other issues. Subjective Pt seen and examined in room 377-2. Follow up Anemia. Overall feels well today and she feels each day she is getting better. Hip pain in the morning but improving. Denies f/c/s, chest pain, sob, n/v/d. Had 1 form stool today. Review of Systems Review of Systems: All systems reviewed & are unremarkable except as noted in HPI & below Physical Exam Physical Exam: Gen: WD/WN, elderly, F, NAD, A&O x3 HEENT: Normocephalic, atraumatic, conjunctivae moist, sclerae anicteric, mucous membranes moist. Lung: Clear to Auscultation bilaterally, no wheezes/rales/rhonchi Heart: Regular rate, regular rhythm, no murmurs, rubs, or gallops Abdomen: Soft, NT, ND +BS x 4 Extremities:L leg > R leg, no carlita edema, no erythema, negative homans, pt states at baseline, L hip incision healing well, no erythema Skin: Warm, no rash, negative turgor. Results & Data Results & Data Vital Signs (Past 12 Hours) Vital Signs Temp Pulse Resp BP Pulse Ox O2 Del Method 09/07/22 08:00 Room Air 09/07/22 07:29 36.9 C 85 18 125/73 97 Room Air Laboratory Results BMP 09/07/22 07:19 Sodium 139 Potassium 3.9 Chloride 109 H Carbon Dioxide 25 BUN 5 L Creatinine 0.55 L Glucose 85 Calcium 7.9 L Medications Administered Current Inpatient Medications Acetaminophen (Acetaminophen 325 Mg Tab) 650 mg PO Q4H PRN PRN Reason: Pain or Fever Stop: 09/30/22 08:48 Al Hydrox/Mg Hydrox/Simethicone (Aluminum/Magnesium Susp 30 Ml Udc) 15 ml PO Q4H PRN PRN Reason: Dyspepsia Stop: 09/30/22 08:48 Aspirin (Aspirin 81 Mg Ectab) 81 mg PO DAILY BARB Stop: 10/07/22 08:59 Last Admin: 09/07/22 08:23 Dose: 81 mg Buspirone HCl (Buspirone 7.5 Mg Tab) 7.5 mg PO TID BARB Stop: 10/06/22 20:59 Last Admin: 09/07/22 13:01 Dose: 7.5 mg Dextrose (Dextrose 50% 50 Ml Syringe) 25 - 50 ml IV UD PRN; Protocol PRN Reason: Hypoglycemia Protocol Stop: 09/30/22 09:32 Fluoxetine HCl (Fluoxetine Hcl 20 Mg Cap) 60 mg PO QAM BARB Stop: 10/07/22 08:59 Last Admin: 09/07/22 08:23 Dose: 60 mg Glucagon (Glucagon For Inj 1 Mg Vial) 1 mg SQ UD PRN; Protocol PRN Reason: Hypoglycemia Protocol Stop: 09/30/22 09:32 Glucose (Glucose 10 Tab/Tube) 4 - 8 tab PO UD PRN; Protocol PRN Reason: Hypoglycemia Treatment Stop: 09/30/22 09:32 Glucose (Glucose 40% Gel 15 Gm Tube) 15 - 30 gm PO UD PRN; Protocol PRN Reason: Hypoglycemia Protocol Stop: 09/30/22 09:32 Heparin Sodium (Porcine) (Heparin Sod 5,000 Unit/0.5 Ml Vial) 5,000 units SQ Q12H BARB Stop: 10/05/22 11:59 Last Admin: 09/07/22 12:53 Dose: 5,000 units Insulin Aspart (Insulin Aspart Per Unit Charge) 0 units SC ACHS BARB Stop: 10/01/22 00:00 Last Admin: 09/07/22 12:56 Dose: 2 units Insulin Glargine (Lantus Per Unit Charge) 0 units SQ Q12 BARB; Protocol Stop: 10/04/22 20:59 Last Admin: 09/07/22 09:18 Dose: Not Given Lactobacillus Acidophilus (Advanced Probiotic 1250 Mg Capsule) 2 cap PO DAILY BARB Stop: 10/05/22 14:44 Last Admin: 09/07/22 08:24 Dose: 2 cap Melatonin (Melatonin 3 Mg Tab) 3 mg PO HS PRN PRN Reason: Sleep Stop: 10/01/22 20:28 Last Admin: 09/06/22 01:16 Dose: 3 mg Miscellaneous (Carbohydrates For Hypoglycemia ) 15 - 30 gm PO UD PRN PRN Reason: Hypoglycemia Protocol Stop: 09/30/22 09:32 Morphine Sulfate (Morphine Sulfate 2 Mg/Ml Carp) 2 mg IV Q4H PRN PRN Reason: severe pain 7-10 Stop: 09/14/22 10:06 Last Admin: 09/06/22 08:31 Dose: 2 mg Nystatin (Nystatin Powder 15gm Btl) 1 appln EXT BID PRN PRN Reason: Groin Stop: 10/06/22 12:14 Last Admin: 09/07/22 08:26 Dose: 1 appln Ondansetron HCl (Ondansetron Inj 2 Mg/Ml 2 Ml Vial) 4 mg IV Q6H PRN PRN Reason: Nausea Stop: 09/30/22 08:48 Last Admin: 09/05/22 14:39 Dose: 4 mg Oxycodone/Acetaminophen (Oxycodone/Acetaminophen 5mg/325mg Tab) 1 tab PO Q4H PRN PRN Reason: Pain Stop: 09/20/22 17:50 Last Admin: 09/07/22 08:25 Dose: 1 tab Pantoprazole Sodium (Pantoprazole 40 Mg Tab) 40 mg PO BID BARB Stop: 10/05/22 20:59 Last Admin: 09/07/22 08:23 Dose: 40 mg Simvastatin (Simvastatin 20 Mg Tab) 20 mg PO HS BARB Stop: 10/06/22 20:59 Last Admin: 09/06/22 21:27 Dose: 20 mg
[2022-09-07] MEDS: SIMVASTATIN 20 MG TAB PO SCH (20:23)
[2022-09-08 08:18] LABS: Hematocrit (blood only) 27.4 % (37.0-47.0); Hemoglobin 8.4 g/dl (12.0-16.0)
[2022-09-08] MEDS ORDERED: oxyCODONE HCL IR 5 MG TAB (IMMEDIATE RELEASE) PO PRN (08:26)
[2022-09-08] MEDS: ASPIRIN 81 MG ECTAB PO SCH (08:53)
[2022-09-08] MEDS: busPIRone 7.5 MG TAB PO SCH (08:53)
[2022-09-08] MEDS: FLUoxetine HCL 20 MG CAP PO SCH (08:54)
[2022-09-08] MEDS: PANTOprazole 40 MG TAB PO SCH (08:54)
[2022-09-08] MEDS: ADVANCED PROBIOTIC 1250 MG CAPSULE PO SCH (08:54)
[2022-09-08] MEDS: LANTUS PER UNIT CHARGE SQ SCH (08:55)
[2022-09-08] MEDS: INSULIN ASPART PER UNIT CHARGE SC SCH ×2 (08:59→12:50)
[2022-09-08] MEDS ORDERED: ACETAMINOPHEN 325 MG TAB PO SCH (09:00)
--- NOTE | 2022-09-08 11:40 | Discharge Summary ---
Discharge Summary Date of Service September 08, 2022 Notes For Next Care Provider Please follow CBC closely. Hemoglobin at discharge, 8.4 Orthopedics recommending resuming Eliquis 2.5 mg twice daily for DVT prophylaxis as her hemoglobin has remained stable. Eliquis will be discontinued at the discretion of orthopedics. She is to continue Protonix 40 mg twice daily for 3 months and then daily thereafter. Patient previously on lisinopril and amlodipine for blood pressure. During hosp ital stay her blood pressure remained normal off medications. We will stop these medications for now but will need close monitoring of blood pressure. Medication Changes From Visit NEW Pantoprazole 40 mg twice daily for 3 months through 12/02/2022 and then take once daily thereafter. Resume Eliquis 2.5 mg daily for DVT prophylaxis. Tylenol 650mg every 6 hours. Oxycodone 7.5mg po every 6 hours as needed for moderate to severe pain. STOP Amlodipine and Lisinopril Admission HPI Per Admitting Provider This is a 67yo F with PMH of HTN, DM II, HLD, mood disorder, h/o breast cancer s/p partial mastectomy and other medical problems who presents to ED from outside hospital for suspected upper GI bleeding. Of significance patient was recently hospitalized 08/10 to 08/16 after sustaining an acute periprosthetic right hip fracture. Of significance patient initially underwent outpatient right total hip replacement by Dr. Krishnamurthy in [place] and on postop day 1 sustained a fall on 08/12 she underwent right revision of her total hip arthroplasty by Dr. Krishnamurthy and had EBL of 500 mL. She remained hospitalized through 08/16 and was placed on Eliquis for DVT prophylaxis. Her chronic medical conditions remained stable throughout hospital stay and she was discharged to SNF at [facility]. Since being discharged to [facility] on 08/24 she was diagnosed with an E. coli UTI. She was placed on Macrobid and Bactrim although patient did not tolerate antibiotics well as she states they were upsetting her stomach. According to notes she was nonparticipating in therapy and also refusing medications. Yesterday patient developed lower severe abdominal pain that was nonradiating and she never experienced in the past. She was moving her bowels loosely 5-6 times a day. She also reported that it was dark black. She also reported nausea but no vomiting. She overall was very fatigued and had lack of appetite. She was sent to [facility] for further evaluation where she was found to have a hemoglobin of 4. She remained hemodynamically stable at their facility. She underwent CT abdomen pelvis with contrast which was negative for any active extravasation concerning for GI bleed. There was concern for possible gastric distention on CT scan and therefore NG tube was placed and what appeared to be fecal material was decompressed from stomach and tested positive for occult blood. Her stool was also positive for occult blood. Her stool was tested and negative for C. difficile but further enteric pathogens are pending. Her lactic acid and PT/INR were normal at that facility. Her BUN was elevated at 57 and creatinine at 1.2. She received 2 units of blood at [facility] as well as a Lasix in between units. She was transported via [facility] to our facility and received an additional 1 unit of blood in route. She was placed on PPI bolus and drip. Currently patient denies any abdominal pain but complains of severe dry mouth and discomfort from the NG tube. She overall generally feels unwell and very fatigued. She denies any right hip discomfort and states her physical therapy is not going well. She overall complains of being lightheaded. She denies any fever, chills, sweats, dizziness, chest pain, shortness breath at rest, cough or any respiratory symptoms. She continues to have a Gloria catheter in place. She did receive IV Rocephin at [facility]. Admission Exam Per Admitting Provider Constitutional: Acute ill appearing F, Pale, WD/WN, vitals as above, NAD, sitting up in bed,+NGT in place Head: Normocephalic, Atraumatic Eyes: PERRL, conjunctivae normal, anicteric sclerae ENMT: external ear and nose normal, oropharynx dry membranes Neck: trachea midline, no thyromegaly normal visual inspection Respiratory: normal respiratory effort, lungs clear to auscultation, no wheeze, rales, rhonchi. Normal insp/exp effort, no accessory muscle use Cardiovascular: RRR, no murmur, no edema Vessels: no JVD or carotid bruit Chest: normal inspection of chest Abdomen: absent bowel sounds, soft, nontender, no hepatosplenomegaly Musculoskeletal: no cyanosis or clubbing, AROM x 4, R lateral thigh incision cdi with deyanira intact, no surrounding erythema Skin: no rashes, warm and dry normal turgor Neurologic: PERRL, EOMI, accommodation nl, no face palsy, no dysarthria CN's II-XI intact bilaterally and moves all extremities Psychiatric: A+Ox3, euthymic affect Lymphatic: no cervical or axillary lymphadenopathy : gloria cath draining yellow urine Principal Dx & Hospital Course #1 = Principal Diagnosis (1) UGIB (upper gastrointestinal bleed): (2) Acute blood loss anemia: (3) Periprosthetic fracture around internal prosthetic right hip joint: (4) Age related osteoporosis: (5) Diabetes mellitus, type II: (6) HTN (hypertension): (7) Hyperlipidemia: Plan Patient is a 67 yr female with H/O HTN, DM II, HLD, mood disorder, h/o breast cancer s/p partial mastectomy and other medical problems who presents to ED from outside hospital for suspected upper GI bleeding. Pt presented to [facility] from [facility] due to abd pain, nausea, fatigue. Of significance patient was recently hospitalized at our facility 08/10 to 08/16 after sustaining an acute periprosthetic right hip fracture. Prior to this hospitalization she underwent an outpatient right total hip replacement by Dr. Krishnamurthy in [place] and on postop day 1 sustained a fall. On 08/12 patient underwent a right revision of her total hip arthroplasty with Dr. Krishnamurthy and had a EBL of 500 mL. She remained hospitalized and placed on Eliquis for DVT prophylaxis. She was discharged to [facility] for rehab. While at rehab patient reported nausea, abdominal pain, multiple loose bowel movements a day and black tarry stool. She persisted to decline therapy while at rehab due to not feeling well and was referred to [facility] for further evaluation. At [facility] she was found to have hemoglobin of 4. CT abdomen pelvis at that time was negative for any active extravasation concerning for GI bleed. There was concern for possible gastric distention on CT scan and therefore an NG tube was placed. She received 3 total units of PRBCs and was transferred via [facility] to [facility] for further care. She was seen and evaluated on day of admission by gastroenterology due to concern for possible upper GI bleed as she was on Eliquis and complaining of black tarry stool. On 09/01 she underwent EGD which revealed gastritis and duodenal bulbar inflammation but no carlita ulcer. She was initially placed on IV PPI and transition to oral PPI twice daily for 3 months and then recommend to continue daily thereafter. CT scan of hip was also performed to rule out possible hematoma which was otherwise negative. She was seen and evaluated by orthopedics for wound evaluation and staple removal. She received additional 1 unit PRBC at our facility and hemoglobin has since remained stable. She was placed on heparin subcu for DVT prophylaxis and tolerated this well. Orthopedics recommending discharging on Eliquis for continued DVT prophylaxis that hemoglobin remained stable but this will need to be monitored closely. She is to avoid all NSAIDs. Prior to hospitalization and during hospitalization patient complained of loose stool. Multiple stool studies were negative for C. difficile and other enteric pathogen's. On day of discharge stool is finally starting to form and improve. She continues to have pain of her previous surgical site. On day of discharge patient's pain regimen was adjusted to scheduled Tylenol 4 times daily as well as a slight increase in oxycodone to 7.5 mg every 6 hours as needed. On day of discharge she is hemodynamically stable and in good spirits. She is tolerating diet and having more formed stools. She offers no acute complaints or concerns and is ready to get to rehab to continue her therapy services. She has not yet followed up with Dr. Krishnamurthy in regards to her right periprosthetic hip frac ture and this will need to be done and arranged when at rehab. Her chronic medical conditions remained stable while hospitalized. She did have hypomagnesemia and hypokalemia which was since replaced. She also has history of hypertension however she remained on lisinopril and amlodipine while hospitalized and her blood pressure continue to remain normal. We will continue to monitor off these medications for now. Discharge Exam Gen: WD/WN, elderly, F, NAD, A&O x3 HEENT: Normocephalic, atraumatic, conjunctivae moist, sclerae anicteric, mucous membranes moist. Lung: Clear to Auscultation bilaterally, no wheezes/rales/rhonchi Heart: Regular rate, regular rhythm, no murmurs, rubs, or gallops Abdomen: Soft, NT, ND +BS x 4 Extremities:L leg > R leg, no carlita edema, no erythema, negative homans, pt states at baseline, R hip incision healing well, no erythema Skin: Warm, no rash, negative turgor. Updated Medication List Medication Instructions Recorded Confirmed Type ayscvnz-xykzftril-eckp 333 mg-133 2 tab PO DAILY 02/01/20 08/31/22 History mg-5 mg tablet fluoxetine 40 mg capsule (Prozac) 60 mg PO QAM 02/01/20 08/31/22 History lactobacillus combination no.4 3 3,000 mmu cells PO DAILY 02/01/20 08/31/22 History billion cell capsule (Probiotic) meclizine 25 mg capsule 25 mg PO TID PRN Dizziness 02/01/20 08/31/22 History ondansetron HCl 4 mg tablet 4 mg PO Q6H PRN Nausea 02/01/20 08/31/22 History (Zofran) pioglitazone 30 mg tablet (Actos) 30 mg PO QAM 02/01/20 08/31/22 History simvastatin 20 mg tablet (Zocor) 20 mg PO HS 02/01/20 08/31/22 History buspirone 7.5 mg tablet 7.5 mg PO TID 08/10/22 08/31/22 History dicyclomine 10 mg capsule 10 mg PO QID 08/10/22 08/31/22 History apixaban 2.5 mg tablet (Eliquis) 2.5 mg PO BID 27 days #54 tabs 08/16/22 08/31/22 Rx cholecalciferol (vitamin D3) 25 1,000 unit PO DAILY #30 caps 08/16/22 08/31/22 Rx mcg (1,000 unit) capsule aspirin 81 mg tablet,delayed 81 mg PO DAILY 08/31/22 08/31/22 History release (Adult Low Dose Aspirin) ferrous sulfate 325 mg (65 mg 325 mg PO DAILY 08/31/22 08/31/22 History iron) capsule,extended release acetaminophen 325 mg tablet 650 mg PO QID #30 tabs 09/08/22 Rx oxycodone 5 mg tablet 7.5 mg PO Q6H PRN pain #8 tabs 09/08/22 Rx pantoprazole 40 mg tablet,delayed 40 mg PO BID #40 tabs 09/08/22 Rx release Hospital Stay Data Consultations 08/31/22 08:49 Consult Gastroenterology Routine Procedures Performed Operation Date: 09/01/22 16:30 Actual Procedures p Esophagogastroduodenoscopy - Pau Dimas MD Diagnostic Imagining Performed Chest X-Ray 08/31/22 09:36 XR chest 1V portable HISTORY: 67 years-old Female admit, s/p transfusion acute shortness of breath COMPARISON: 08/10/2022 TECHNIQUE: AP view of the chest FINDINGS: Distal tip of enteric tube courses below the diaphragm outside the field of view. Cardiac silhouette is enlarged. No pneumothorax, pleural effusion, airspace consolidation or pulmonary edema. Surgical clips project over the left chest wall. IV catheter projects over the right axilla. Bones appear grossly intact. IMPRESSION: No acute process. ACT 112: Negative or not required by law. The above report was generated using voice recognition software. It may contain grammatical, syntax or spelling errors. Electronically signed by: Buddy Rod M.D. 08/31/2022 10:[address] 08/31/22 10:27 CT hip RT wo con HISTORY: 67 years-old Female r/o bleeding acute right hip pain with recent surgery COMPARISON: 08/12/2022 TECHNIQUE: Multiple axial CT images of the right hip were obtained without the use of IV contrast. A dose lowering technique was used consistent with the principals of ALARA. FINDINGS: Total joint arthroplasty of the right hip with elongated femoral stem, proximal diaphyseal cerclage wires with lateral fixation plate. Unchanged alignment of the acute/subacute periprosthetic fracture without significant interval bony healing. Mild persistent displacement and comminution. No additional acute fracture or dislocation identified. Contrast in the rectum. Contrast in the partially decompressed urinary bladder with associated Gloria catheter. Streak artifact from the hardware limits evaluation of the adjacent tissues. There is moderate lateral subcutaneous edema/hemorrhage. No discrete drainable fluid collection. Lateral skin thickening. IMPRESSION: 1. Right hip arthroplasty. Unchanged alignment of the acute fixated periprosthetic right femoral fracture with lateral skin deyanira and subcutaneous edema versus hemorrhage. 2. No discrete drainable fluid collection. ACT 112: Negative or not required by law. The above report was generated using voice recognition software. It may contain grammatical, syntax or spelling errors. Electronically signed by: Buddy Rod M.D. 08/31/2022 1:49 PM Pending Results Patient Have Any Pending Studies at Discharge: No Discharge Instructions Given to Patient (Per Discharging Provider) MEDICATION CHANGES: NEW Pantoprazole 40 mg twice daily for 3 months through 12/02/2022 and then take once daily thereafter. Resume Eliquis 2.5 mg daily for DVT prophylaxis. Tylenol 650mg every 6 hours. Oxycodone 7.5mg po every 6 hours as needed for moderate to severe pain. STOP Amlodipine and Lisinopril RECOMMENDATIONS FOR FOLLOW-UP: Please follow up with your Primary Care Provider upon discharge from rehab. Patient will need to follow up with orthopedics in office. She was seen in the hospital and incision/wound was evaluated and deyanira removed; however will need follow up with Dr. Krishnamurthy. Please call [facility] at [phone] to schedule a follow up appointment. Recommend CBC, BMP twice weekly or more if indicated. Hemoglobin on day of discharge 8.4. Blood pressure has been normal throughout hospital stay off blood pressure medication, Amlodipine and Lisinopril. Continue to monitor need for antihypertensive therapy. OTHER INSTRUCTIONS: Seek medical attention if you have: * temperature above 101 * chest pain or trouble breathing * abdominal pain, nausea, vomiting * diarrhea, dark stools or bloody stools * any unanswered questions or concerns Call 911 if symptoms are severe. Please take good care of yourself. It has been a pleasure taking care of you. Please take care of yourself. If you have any questions regarding your recent hospitalization please contact [facility] and request Saurabh Sampson @ [phone]. Angelita Cee PA-C Total Time Total Time Spent Total Time Spent (In Minutes): 45 minutes Supervising Physician Co-Signing Physician Notes Patient is seen and examined at bedside. Feels well today. No new complaints. Plan to be discharged to Rehab facility today. Upper GI bleed. No recurrence of bleeding. Resumed Eliquis. Plan to discharge to Rehab today. I personally reviewed the record. Patient is interviewed and examined at bedside. Patient's care is coordinated with Angelita Cee PA-C. Please refer to the documentation above for details of patient's presentation and for discussion of other issues.
== END 2022-09-08 13:30 | DRG 392 ==
LOC: SUATTDRO 08:28 → 2S 08:28 → 3N 09-06 17:48